=== PATIENT | female | born 1965 | race Caucasian/White ===

== ENCOUNTER 2017-03-19 22:38 | Emergency (ER) | payer OTHER ==
[2017-03-19 22:44] VITALS: RESP 18
[2017-03-19] MEDS ORDERED: HYDROcodone/APAP 5-325MG 1 EACH TAB PO STA (23:08)
--- NOTE | 2017-03-19 23:28 | ED ---
Fall HPI - General Chief Complaint: Fall Stated Complaint: Arm Pain Time Seen by Provider: 03/19/17 22:58 Source: patient, RN notes reviewed Mode of arrival: ambulatory - History of Present Illness Initial Comments: Patient is a 51-year-old female presents to the emergency room for evaluation of fall injury. Patient states she was walking over a bunch of rocks while in her flip-flops and tripped and fell. Patient states she has an abrasion over her right foot. Patient states she woke up today she's having pain in her left wrist, left hand, third digit of left hand, left shoulder, right shoulder and the right side of her ribs. Patient states the pain is worse when she takes a deep breath. Patient does state she has a history of COPD. Patient denies increasing shortness of breath. Patient states she took Tylenol 3 earlier today with no relief of symptoms. Patient denies head trauma during incident. Patient denies headache, neck pain, nausea or vomiting. Patient denies paresthesias. Patient denies low back pain. Patient denies any other injuries during incident. - Related Data Home Medications Medication Instructions Recorded Confirmed DULoxetine HCL [Cymbalta] 30 mg PO DAILY 03/19/17 03/19/17 DULoxetine HCL [Cymbalta] 60 mg PO DAILY 03/19/17 03/19/17 LORazepam [Ativan] 0.5 mg PO BID PRN 03/19/17 03/19/17 Mobic Unknown Dose 1 tab PO DAILY 03/19/17 03/19/17 Naproxen [Naprosyn] 500 mg PO BID PRN 03/19/17 03/19/17 Pepcid Unknown Strength 1 tab PO BID 03/19/17 03/19/17 QUEtiapine FUMARATE [SEROquel] 100 mg PO HS 03/19/17 03/19/17 Requip Unknown Dose 3 tab PO HS 03/19/17 03/19/17 Previous Rx's Medication Instructions Recorded HYDROcodone/APAP 5-325MG [[place] 1 tab PO Q6HR PRN #12 tab 03/20/17 5-325] Allergies Allergy/AdvReac Type Severity Reaction Status Date / Time No Known Allergies Allergy Verified 03/19/17 23:19 Review of Systems ROS Statement: Those systems with pertinent positive or pertinent negative responses have been documented in the HPI. ROS Other: All systems not noted in ROS Statement are negative. Past Medical History Past Medical History: No Reported History History of Any Multi-Drug Resistant Organisms: None Reported Additional Past Surgical History / Comment(s): left knee, bilateral breast lumpectomy, endoscopy. Past Psychological History: Anxiety, Depression Smoking Status: Current every day smoker Past Alcohol Use History: None Reported Past Drug Use History: None Reported General Exam - General Exam Comments Initial Comments: Sitting in exam room, no acute distress. Limitations: no limitations General appearance: alert, in no apparent distress Head exam: Present: atraumatic, normocephalic, normal inspection Eye exam: Present: normal appearance, PERRL, EOMI Pupils: Present: normal accommodation ENT exam: Present: normal exam Neck exam: Present: normal inspection, full ROM. Absent: tenderness, lymphadenopathy Respiratory exam: Present: normal lung sounds bilaterally, chest wall tenderness (Redness on palpating over her anterior lateral ribs on the right side). Absent: respiratory distress Cardiovascular Exam: Present: regular rate, normal rhythm, normal heart sounds Left Shoulder Exam: Present: normal inspection, full ROM, tenderness (Anterior shoulder joint). Absent: tenderness over AC joint Forearm Wrist exam: Present: full ROM, tenderness (Tenderness on palpating over distal ulnar area) Hand Wrist exam: Present: normal inspection, full ROM, tenderness (Palpating over the base of the fifth and fourth metacarpal areas. Pain on palpating over the distal phalanx of third digit.) Vascular: Present: normal capillary refill (Capillary refill less than 2 seconds ), radial pulse (2+), ulnar pulse (2+) Right Shoulder Exam: Present: normal inspection, full ROM, tenderness ([place] on palpating over her anterior shoulder joint). Absent: tenderness over AC joint Upper Arm exam: Present: normal inspection, full ROM. Absent: tenderness Vascular: Present: normal capillary refill (Capillary refill less than 2 seconds ), radial pulse (2+), ulnar pulse (2+) Back exam: Present: normal inspection Neurological exam: Present: alert, oriented X3, CN II-XII intact, normal gait Psychiatric exam: Present: normal affect, normal mood Skin exam: Present: warm, dry, intact, normal color. Absent: rash Course Vital Signs 03/19/17 03/20/17 22:40 00:29 Temperature 98.1 F 98.0 F Pulse Rate 102 H 69 Respiratory 18 18 Rate Blood Pressure 136/72 159/88 O2 Sat by Pulse 96 98 Oximetry Procedures - Orthopedic Splinting/Casting Injury #1 Side: left Upper Extremity Injury Location: hand, finger (Third digit) Upper Extremity Immobilizer: ulnar gutter (Short arm OCL ulnar gutter splint placed. 2 x 10". Neurovascular function assessed and intact.), aluminum form splint (Third digit) Medical Decision Making - Medical Decision Making Patient is a 51-year-old female presents to the emergency room for evaluation of fall injury. Patient does have a tuft comminuted fracture of the distal phalanx of the third left digit. Patient also has a nondisplaced fracture of the base of the fifth metacarpal of the left hand. Patient also has a right fifth rib fracture. A pulmonary nodule was noted in the right upper lobe of the chest x-ray. This was mentioned to patient. Advised patient to follow-up with primary care provider for further evaluation of the nodule. All other x- ray's showed no acute findings. Patient placed in an ulnar gutter splint for fifth metacarpal fracture and placed in an aluminum finger splint for the third distal phalanx fracture. Patient was sent home with pain medications and advised to follow-up with cardiac nurse specialist and primary care provider. Patient states she understands everything that was discussed with her. Return parameters discussed. Case discussed with Dr. Alvarado. - Radiology Data Radiology results: report reviewed, image reviewed Disposition Clinical Impression: Right rib fracture, Fracture of fifth metacarpal bone, Phalanx, distal fracture of finger, Fall, Abrasion of right foot, Pulmonary nodule Disposition: HOME SELF-CARE Condition: Good Instructions: Finger Fracture (ED), Hand Fracture (ED), Abrasion (ED), Pulmonary Nodules (ED) Additional Instructions: Ice left hand on and off for 10-15 minutes for the next 24-48 hours. Do not get splint wet. Do not remove splint until follow-up with cardiac nurse specialist. Please follow-up with cardiac nurse specialist, Dr. Baugh, in 24- 48 hours. Take ibuprofen as needed for pain. Take [place] as needed for severe pain. Please follow up with primary care provider for reevaluation of rib fracture and pulmonary nodule. If new symptoms develop or symptoms worsen, please return to the ER. Prescriptions: HYDROcodone/APAP 5-325MG [[place] 5-325] 1 tab PO Q6HR PRN #12 tab PRN Reason: Pain Referrals: Sampson Nova MD [Primary Care Provider] - 1-2 days Lee Baugh DO [Doctor of Osteopathic Medicine] - 1-2 days Time of Disposition: 00:27
--- NOTE | 2017-03-19 23:35 | XR ---
EXAM: XR Left Shoulder Complete, 2 or More Views CLINICAL HISTORY: Reason: Pain TECHNIQUE: Two or more views of the left shoulder. COMPARISON: No relevant prior studies available. FINDINGS: Bones/joints: No evidence of fracture or dislocation. No significant arthritic changes identified. Soft tissues: Unremarkable. Lungs: Multiple calcified pulmonary granulomas. IMPRESSION: No significant bone or joint abnormalities.
--- NOTE | 2017-03-19 23:39 | XR ---
EXAM: XR Right Shoulder Complete, 2 or More Views CLINICAL HISTORY: Reason: Pain TECHNIQUE: Two or more views of the right shoulder. COMPARISON: No relevant prior studies available. FINDINGS: Bones/joints: No evidence of fracture or dislocation. No significant arthritic changes. Soft tissues: Unremarkable. Lungs: Small nodular and linear density measuring approximately 6 mm along peripheral aspect of right upper lobe. IMPRESSION: No significant bone or joint abnormalities. Small nodular and linear density along the peripheral right upper lobe which may reflect pulmonary fibrotic scarring, but cannot exclude pulmonary nodule. Follow-up PA and lateral chest radiographs would be useful for further evaluation.
--- NOTE | 2017-03-19 23:51 | XR ---
EXAM: XR Right Ribs and AP Chest, 3 or More Views CLINICAL HISTORY: Reason: Pain TECHNIQUE: Frontal and oblique views of the right ribs and frontal view of the chest. COMPARISON: No relevant prior studies available. FINDINGS: Lungs: Heart size and mediastinal structures are within normal limits. Scattered calcified pulmonary granulomas bilaterally. There are scattered linear opacities in the right upper lobe and right lung apex suggesting fibrotic scarring. Small nodular and linear density along the peripheral right upper lobe may also reflect pulmonary fibrotic scarring, but cannot exclude pulmonary nodule. No focal pulmonary infiltrates or consolidations. Pleural space: No evidence of pneumothorax or pleural effusion. Heart: Unremarkable. No cardiomegaly. Mediastinum: Unremarkable. Bones/joints: Several old right rib fractures. There is acute appearing minimally displaced fracture involving the lateral right fifth rib. No other definite acute rib fractures identified. IMPRESSION: Remote granulomatous process and scattered right upper lobe pulmonary fibrotic scarring. Small subcentimeter right upper lobe pulmonary nodule which is of indeterminate etiology. If no prior chest radiographs are available for comparison, then follow-up CT chest would be recommended. Minimally displaced acute appearing lateral right fifth rib fracture. No evidence of pulmonary convocation.
--- NOTE | 2017-03-19 23:57 | XR ---
EXAM: XR Left Wrist Complete, 3 or More Views CLINICAL HISTORY: Reason: Pain TECHNIQUE: Frontal, lateral and oblique views of the left wrist. COMPARISON: No relevant prior studies available. FINDINGS: Bones/joints: No evidence of fracture, dislocation or bony erosion. No significant arthritic changes identified. Soft tissues: Mild soft tissue swelling about the wrist. No radiopaque foreign body. IMPRESSION: Mild soft tissue swelling about the wrist. No evidence of acute fracture or dislocation.
--- NOTE | 2017-03-20 00:02 | XR ---
EXAM: XR Left Hand Complete, 3 or More Views CLINICAL HISTORY: Reason: Pain TECHNIQUE: Frontal, lateral and oblique views of the left hand. COMPARISON: No relevant prior studies available. FINDINGS: Bones/joints: Comminuted mildly displaced fracture involves terminal tuft of third distal phalanx. Nondisplaced fracture traverses base of fifth metacarpal. No other fracture or dislocation identified. Soft tissues: Soft tissue swelling about the distal third finger. No radiopaque foreign body. IMPRESSION: Mildly displaced, comminuted fracture terminal tuft of third distal filling speared Nondisplaced fracture base of fifth metacarpal.
[2017-03-20 00:30] VITALS: BP 159/88; PULSE 69; TEMP 98
== END 2017-03-20 00:37 | disposition home or self-care (01) ==
LOC: EC 22:38
DX: S22.31XA Fracture of one rib, right side, initial encounter for closed fracture (principal); S62.347A Nondisplaced fracture of base of fifth metacarpal bone, left hand, initial encounter for closed fracture; S62.633A Displaced fracture of distal phalanx of left middle finger, initial encounter for closed fracture; S90.811A Abrasion, right foot, initial encounter; M25.511 Pain in right shoulder; M25.512 Pain in left shoulder; R91.1 Solitary pulmonary nodule; F32.9 Major depressive disorder, single episode, unspecified; F41.9 Anxiety disorder, unspecified; F17.200 Nicotine dependence, unspecified, uncomplicated; Z79.899 Other long term (current) drug therapy; W01.0XXA Fall on same level from slipping, tripping and stumbling without subsequent striking against object, initial encounter
CPT/HCPCS: 29125; 99284

== ENCOUNTER → 2017-05-14 | Outpatient (CLI) | payer MEDICARE, OTHER ==
--- NOTE | 2017-05-14 16:06 | CT ---
EXAMINATION TYPE: CT chest w con DATE OF EXAM: 05/14/2017 COMPARISON: Chest x-ray May 06, 2017. HISTORY: Follow up for lung nodule. Abnormal chest x-ray CT DLP: 134.0 mGycm. Automated Exposure Control for Dose Reduction was Utilized. TECHNIQUE: CT scan of the thorax is performed following with IV Contrast, patient injected with 80 m L of Omnipaque 300. FINDINGS: LUNGS: There is background of moderate to severe emphysematous change. There are scattered calcified nodules confirmed as suspected on x-ray seen bilaterally most pronounced in the lower lungs but calci fied 5 mm nodule is seen in the left upper lobe. There is 5 x 5 mm noncalcified nodule right lung bas e on axial image 50 just above diaphragm. No suspicious noncalcified greater than 6 mm parenchymal no dule or mass is otherwise present bilaterally. No pleural effusion or pneumothorax is seen bilaterall y. Moderate apical scarring bilaterally is seen. Tracheobronchial tree is patent. MEDIASTINUM: There are no greater than 1 cm hilar or mediastinal lymph nodes. No cardiomegaly or pe ricardial effusion is seen. Coronary artery calcification is present which is noted marker for coron aryan artery disease. OTHER: S-shaped scoliosis in the thoracolumbar spine is present. Heterogeneously dense fibroglandular tissue is noted in both breasts. IMPRESSION: Scattered small calcified nodules are present bilaterally presumed benign and product of old granulomatous disease. A single 5 mm noncalcified nodule right lung base is noted on background o f moderate to severe emphysematous change. Appropriate CT imaging follow-up is advised as per modifie d Fleischner Society recommendations. (Consider optional CT in 1 year)
== END | disposition home or self-care (01) ==
LOC: RADCTMAIN 14:00
PROVIDERS: ATTEND Internal Medicine Critical Care Medicine
DX: R91.8 Other nonspecific abnormal finding of lung field (principal); J43.9 Emphysema, unspecified
CPT/HCPCS: 71260; Q9967

== ENCOUNTER 2018-04-11 00:36 | Inpatient (IN) | payer OTHER, MEDICARE ==
[2018-04-11 00:54] LABS: Basophils # (A) 0.1 k/uL (0-0.2); Basophils % (A) 0 %; Eosinophils # (A) 0.2 k/uL (0-0.7); Eosinophils % (A) 1 %; HCT 37.2 % (34.0-46.0); HGB 12.5 gm/dL (11.4-16.0); Lymphocytes # (A) 3.4 k/uL (1.0-4.8); Lymphocytes % (A) 18 %; MCH 29.8 pg (25.0-35.0); MCHC 33.6 g/dL (31.0-37.0); MCV 88.9 fL (80.0-100.0); Mean Platelet Volume 6.6; Monocytes # (A) 0.4 k/uL (0-1.0); Monocytes % (A) 2 %; Neutrophils # (A) 14.7 k/uL (1.3-7.7); Neutrophils % (A) 78 %; Platelet Count 335 k/uL (150-450); RBC 4.18 m/uL (3.80-5.40); RDW 13.7 % (11.5-15.5); WBC 18.9 k/uL (3.8-10.6)
[2018-04-11 00:56] LABS: Glucose,Whole Blood 87 mg/dL (75-99)
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
[2018-04-11 01:04] LABS: Partial Thromboplastin Time 22.7 sec (22.0-30.0); Prothrombin Time 9.9 sec (9.0-12.0)
[2018-04-11 01:05] LABS: ALT 28 U/L (9-52); AST 29 U/L (14-36); Alcohol <10 mg/dL; Alkaline Phosphatase 50 U/L (38-126); Amylase 77 U/L (30-110); Anion Gap 12 mmol/L; Blood Urea Nitrogen 13 mg/dL (7-17); Carbon Dioxide 21 mmol/L (22-30); Chloride 103 mmol/L (98-107); Glucose 99 mg/dL (74-99); Lipase 117 U/L (23-300); Potassium 3.3 mmol/L (3.5-5.1); Sodium 136 mmol/L (137-145); Total Bilirubin 0.3 mg/dL (0.2-1.3); Total Protein 6.4 g/dL (6.3-8.2)
[2018-04-11 01:15] LABS: Creatine Kinase 89 U/L (30-135)
[2018-04-11] MEDS ORDERED: MORPHINE SULFATE 2 MG/ML SYRINGE IVP STA ×3 (01:19→05:11)
[2018-04-11 01:28] LABS: Creatine Kinase MB 0.5 ng/mL (0.0-2.4); Troponin I <0.012 ng/mL (0.000-0.034)
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
--- NOTE | 2018-04-11 02:56 | CT ---
EXAMINATION TYPE: CT brain georgie moreno DATE OF EXAM: 04/11/2018 COMPARISON: HISTORY: Trauma CT DLP: 1540 mGycm Automated exposure control for dose reduction was used. TECHNIQUE: CT scan of the head and cervical spine are performed without contrast. FINDINGS: Ventricles and sulci appear normal. There is no mass effect nor midline shift. There is n o sign of intracranial hemorrhage. There is symmetric thalamic calcification. There is evidence of ol d 1 cm lacunar infarct right anterior internal capsule. The calvarium is intact. There is a 1.5 cm ar ea of hypodensity also in the anterior left internal capsule. The cervical vertebra have fairly normal spacing and alignment. Posterior elements are intact. Facet joints are intact. There is narrowing at C5-6 disc space and mild spur formation. Skull base is intac t. IMPRESSION: Mild spondylosis at C5-6. No fracture. Chronic small vessel ischemia in the brain. No acute definite intracranial abnormality. No hemorrhage .
[2018-04-11 03:03] LABS: Appearance,Urine Clear (Clear); Bilirubin,Urine Negative (Negative); Blood,Urine Negative (Negative); Color,Urine Light Yellow; Glucose,Urine (UA) Negative (Negative); Ketones,Urine Negative (Negative); Leukocyte Esterase,Urine Negative (Negative); Nitrite,Urine Negative (Negative); PH, Urine 6.5 (5.0-8.0); Protein,Urine Negative (Negative); Specific Gravity,Urine 1.022 (1.001-1.035); Urobilinogen,Urine <2.0 mg/dL (<2.0)
[2018-04-11 03:13] LABS: Amphetamine Screen,Urine Not Detected (NotDetected); Barbiturate Screen,Urine Not Detected (NotDetected); Benzodiazepines Screen,Urine Not Detected (NotDetected); Cocaine Screen,Urine Not Detected (NotDetected); Methadone Screen, Urine Not Detected (NotDetected); Opiate Screen,Urine Detected (NotDetected); Oxycodone Screen, Urine Not Detected (NotDetected); Phencyclidine Screen,Urine Not Detected (NotDetected); Tricyclic Antidepressant,Urine Not Detected (NotDetected); Urn Cannabinoid Scrn Not Detected (NotDetected)
--- NOTE | 2018-04-11 03:14 | CT ---
EXAMINATION TYPE: CT ChestAbdPelvis wo con DATE OF EXAM: 04/11/2018 COMPARISON: None HISTORY: Trauma CT DLP: 1401 mGycm. Automated Exposure Control for Dose Reduction was Utilized. TECHNIQUE: CT scan of the thorax, abdomen and pelvis is performed with IV contrast. FINDINGS: There is pulmonary emphysema. There is coarse reticular interstitial density throughout the lungs and more at the lung bases consistent with fibrosis. There is no pericardial effusion. Thoraci c aorta is intact. There is no evidence of aneurysm or dissection. Abdominal aorta is intact. There i s no pneumothorax. There is no mediastinal adenopathy. There is no pulmonary mass. Liver spleen pancreas gallbladder appear normal. Bile ducts are not dilated. There is no adrenal mass . Kidneys show satisfactory contrast opacification. There is no hydronephrosis. There is no retroperi toneal adenopathy. There is no ascites. Bladder distends smoothly. I see no pelvic mass. There is no intestinal wall thickening. There are no dilated loops. There is no sign of pneumoperitoneum. There is anterior wedging with 25% loss of height of T12. This could be an acute fracture. The other thoracic and lumbar vertebra appear intact. There is bilateral L5 spondylolysis. Is no spondylolisthe sis. IMPRESSION: Emphysema. Extensive pulmonary interstitial fibrosis. Mild atherosclerotic vascular disease. Compression fracture of T12 is probably an acute fracture. L5 spondylolysis.
[2018-04-11] MEDS ORDERED: SODIUM CHLORIDE 0.9% 1,000 ML IV ONE (04:26)
[2018-04-11] MEDS: MORPHINE SULFATE 2 MG/ML SYRINGE IVP PRN ×4 (08:45→21:52)
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
[2018-04-11] MEDS: BACLOFEN 10 MG TAB PO PRN ×2 (12:28→23:52)
[2018-04-11] MEDS ORDERED: tiZANidine 4 MG TAB PO PRN (12:47)
[2018-04-11] MEDS ORDERED: ACETAMINOPHEN TAB 325 MG TAB PO PRN (12:47)
[2018-04-11] MEDS ORDERED: POTASSIUM CHLORIDE ER 20 MEQ TAB.ER PO STA (12:56)
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
[2018-04-11] MEDS: KETOROLAC 30 MG/ML 1 ML VIAL IVP SCH ×2 (16:47→23:52)
[2018-04-11] MEDS: NICOTINE 21MG/24HR PATCH TRANSDERM SCH (16:47)
[2018-04-11] MEDS: FAMOTIDINE 20 MG TAB PO SCH (16:48)
[2018-04-11] MEDS: SODIUM CHLORIDE 0.9% 1,000 ML IV SCH ×2 (16:49→23:54)
[2018-04-11] MEDS: SYMBICORT 160-4.5 MCG INHALER INHALATION SCH (21:08)
[2018-04-11] MEDS: MONTELUKAST 10 MG TAB PO SCH (21:18)
[2018-04-11] MEDS: ALPRAZolam 0.25 MG TAB PO SCH (21:18)
[2018-04-11] MEDS: HEPARIN SODIUM,PORCINE 5,000 UNIT/ML 1 ML VIAL SQ SCH (21:19)
[2018-04-11] MEDS: oxyCODONE-APAP 7.5-325MG 1 EACH TAB PO PRN (23:03)
[2018-04-12] MEDS: MORPHINE SULFATE 2 MG/ML SYRINGE IVP PRN ×5 (04:10→21:12)
[2018-04-12] MEDS: KETOROLAC 30 MG/ML 1 ML VIAL IVP SCH ×4 (05:41→23:52)
[2018-04-12] MEDS: SYMBICORT 160-4.5 MCG INHALER INHALATION SCH ×2 (07:12→19:43)
[2018-04-12] MEDS: HEPARIN SODIUM,PORCINE 5,000 UNIT/ML 1 ML VIAL SQ SCH ×2 (07:51→21:41)
[2018-04-12] MEDS: DULoxetine HCL 30 MG CAPSULE.DR PO SCH (07:51)
[2018-04-12] MEDS: NICOTINE 21MG/24HR PATCH TRANSDERM SCH (07:51)
[2018-04-12] MEDS: FAMOTIDINE 20 MG TAB PO SCH (07:51)
[2018-04-12 08:08] LABS: Basophils # (A) 0.1 k/uL (0-0.2); Basophils % (A) 1 %; Eosinophils # (A) 0.1 k/uL (0-0.7); Eosinophils % (A) 1 %; HCT 38.2 % (34.0-46.0); HGB 12.7 gm/dL (11.4-16.0); Lymphocytes # (A) 1.5 k/uL (1.0-4.8); Lymphocytes % (A) 15 %; MCH 29.8 pg (25.0-35.0); MCHC 33.3 g/dL (31.0-37.0); MCV 89.5 fL (80.0-100.0); Mean Platelet Volume 6.8; Monocytes # (A) 0.3 k/uL (0-1.0); Monocytes % (A) 3 %; Neutrophils # (A) 7.6 k/uL (1.3-7.7); Neutrophils % (A) 79 %; Platelet Count 264 k/uL (150-450); RBC 4.27 m/uL (3.80-5.40); RDW 13.6 % (11.5-15.5); WBC 9.6 k/uL (3.8-10.6)
[2018-04-12 08:25] LABS: Anion Gap 10 mmol/L; Blood Urea Nitrogen 7 mg/dL (7-17); Calcium 8.7 mg/dL (8.4-10.2); Carbon Dioxide 21 mmol/L (22-30); Chloride 107 mmol/L (98-107); Glucose 93 mg/dL (74-99); Potassium 3.4 mmol/L (3.5-5.1); Sodium 138 mmol/L (137-145)
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
[2018-04-12] MEDS ORDERED: DULoxetine HCL 60 MG CAPSULE.DR PO SCH (09:00)
[2018-04-12] MEDS ORDERED: MELOXICAM 7.5 MG TAB PO SCH (09:00)
[2018-04-12] MEDS: oxyCODONE-APAP 7.5-325MG 1 EACH TAB PO PRN ×2 (10:19→22:13)
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
[2018-04-12] MEDS ORDERED: FUROSEMIDE 10 MG/ML 2 ML VIAL IV ONE (11:59)
[2018-04-12] MEDS: BACLOFEN 10 MG TAB PO PRN ×2 (12:30→19:03)
[2018-04-12] MEDS: POTASSIUM CHLORIDE ER 20 MEQ TAB.ER PO SCH (12:30)
[2018-04-12] MEDS ORDERED: FUROSEMIDE 10 MG/ML 2 ML VIAL IV STA (14:56)
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
--- NOTE | 2018-04-12 18:07 | XR ---
EXAMINATION TYPE: XR chest 2V DATE OF EXAM: 04/12/2018 COMPARISON: 05/06/2017 HISTORY: Short of breath TECHNIQUE: Frontal and lateral views of the chest are obtained. FINDINGS: There is bilateral diffuse interstitial pulmonary infiltrate. This is increased compared t o last exam. There is pulmonary emphysema. There is no pleural effusion or pneumothorax. Heart size i s normal. The bony thorax is intact. There are calcified granulomata in both lungs. IMPRESSION: Interstitial pulmonary fibrosis has progressed compared to last exam. Bullous emphysema. No heart failure seen. Acute interstitial pneumonia is possible.
[2018-04-12] MEDS: IPRATROPIUM-ALBUTEROL 3 ML NEB INHALATION SCH (19:43)
[2018-04-12] MEDS: ONDANSETRON 4 MG/2 ML VIAL IVP PRN (21:07)
[2018-04-12] MEDS: ALPRAZolam 0.25 MG TAB PO SCH (21:16)
[2018-04-12] MEDS: MONTELUKAST 10 MG TAB PO SCH (21:41)
[2018-04-13] MEDS: ONDANSETRON 4 MG/2 ML VIAL IVP PRN ×2 (04:41→10:12)
[2018-04-13] MEDS: MORPHINE SULFATE 2 MG/ML SYRINGE IVP PRN ×4 (04:45→19:36)
[2018-04-13] MEDS: BACLOFEN 10 MG TAB PO PRN ×2 (05:59→22:04)
[2018-04-13] MEDS: KETOROLAC 30 MG/ML 1 ML VIAL IVP SCH ×4 (06:01→18:09)
[2018-04-13] MEDS: NICOTINE 21MG/24HR PATCH TRANSDERM SCH (07:22)
[2018-04-13] MEDS: HEPARIN SODIUM,PORCINE 5,000 UNIT/ML 1 ML VIAL SQ SCH ×2 (07:22→20:21)
[2018-04-13] MEDS: POTASSIUM CHLORIDE ER 20 MEQ TAB.ER PO SCH (07:22)
[2018-04-13] MEDS: DULoxetine HCL 30 MG CAPSULE.DR PO SCH (07:23)
[2018-04-13] MEDS: FAMOTIDINE 20 MG TAB PO SCH (07:23)
[2018-04-13] MEDS: SYMBICORT 160-4.5 MCG INHALER INHALATION SCH ×2 (07:30→19:29)
[2018-04-13] MEDS: IPRATROPIUM-ALBUTEROL 3 ML NEB INHALATION SCH ×3 (07:30→19:10)
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
[2018-04-13] MEDS: oxyCODONE-APAP 7.5-325MG 1 EACH TAB PO PRN (11:52)
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
[2018-04-13 19:16] VITALS: RESP 18
[2018-04-13] MEDS: MONTELUKAST 10 MG TAB PO SCH (20:22)
[2018-04-13] MEDS: ALPRAZolam 0.25 MG TAB PO SCH (20:22)
[2018-04-13] MEDS ORDERED: MORPHINE SULFATE 2 MG/ML SYRINGE ONE (23:30)
[2018-04-14] MEDS ORDERED: KETOROLAC 30 MG/ML 1 ML VIAL ONE (00:17)
[2018-04-14] MEDS ORDERED: oxyCODONE-APAP 7.5-325MG 1 EACH TAB ONE (00:17)
[2018-04-14] MEDS: KETOROLAC 30 MG/ML 1 ML VIAL IVP SCH ×3 (04:55→11:58)
[2018-04-14] MEDS: IPRATROPIUM-ALBUTEROL 3 ML NEB INHALATION SCH ×2 (07:55→13:18)
[2018-04-14] MEDS: SYMBICORT 160-4.5 MCG INHALER INHALATION SCH (07:55)
[2018-04-14] MEDS: oxyCODONE-APAP 7.5-325MG 1 EACH TAB PO PRN (08:23)
[2018-04-14] MEDS: HEPARIN SODIUM,PORCINE 5,000 UNIT/ML 1 ML VIAL SQ SCH (08:24)
[2018-04-14] MEDS: DULoxetine HCL 30 MG CAPSULE.DR PO SCH (08:24)
[2018-04-14] MEDS: FAMOTIDINE 20 MG TAB PO SCH (08:24)
[2018-04-14] MEDS: POTASSIUM CHLORIDE ER 20 MEQ TAB.ER PO SCH (08:25)
[2018-04-14] MEDS: NICOTINE 21MG/24HR PATCH TRANSDERM SCH (08:25)
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
[2018-04-14 09:33] VITALS: BP 143/87; PULSE 85; TEMP 97.6
[2018-04-14] MEDS ORDERED: oxyCODONE-APAP 7.5-325MG 1 EACH TAB PO PRN (09:43)
[2018-04-14] MEDS ORDERED: GABAPENTIN 100 MG CAP PO SCH (12:45)
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
== END 2018-04-14 15:37 | disposition home health service (06) | DRG 552 ==
LOC: EC 00:36 → SUPCPDRO 00:36 → 5ONC 04:26 → OBSVTOIN 11:16 → 5MS5E 04-12 17:31 → 3SUR 04-13 11:36
PROVIDERS: ADMIT Internal Medicine; ATTEND Internal Medicine
DX: S22.089A Unspecified fracture of T11-T12 vertebra, initial encounter for closed fracture (principal); J96.11 Chronic respiratory failure with hypoxia; R40.2412 Glasgow coma scale score 13-15, at arrival to emergency department; S92.322A Displaced fracture of second metatarsal bone, left foot, initial encounter for closed fracture; S92.332A Displaced fracture of third metatarsal bone, left foot, initial encounter for closed fracture; J84.10 Pulmonary fibrosis, unspecified; D72.829 Elevated white blood cell count, unspecified; M43.16 Spondylolisthesis, lumbar region; E87.6 Hypokalemia; F17.210 Nicotine dependence, cigarettes, uncomplicated; F32.9 Major depressive disorder, single episode, unspecified; F41.9 Anxiety disorder, unspecified; G25.81 Restless legs syndrome; J43.9 Emphysema, unspecified; Z79.1 Long term (current) use of non-steroidal anti-inflammatories (NSAID); Z79.51 Long term (current) use of inhaled steroids; Z79.899 Other long term (current) drug therapy; V49.3XXA Car occupant (driver) (passenger) injured in unspecified nontraffic accident, initial encounter; Y08.89XA Assault by other specified means, initial encounter; Y92.410 Unspecified street and highway as the place of occurrence of the external cause
CPT/HCPCS: 36415; 70450; 71046; 71250; 72125; 74176; 80048; 80053; 80306; 80320; 81003; 82150; 82550; 82553; 83605; 83690; 84484; 85025; 85610; 85730; 86850; 86900; 86901; 93005; 94640; 94760; 96361; 96374; 96376; 99285

== ENCOUNTER → 2018-05-20 | Outpatient (CLI) | payer MEDICARE, OTHER ==
[2018-05-20 16:17] LABS: HCT 41.1 % (34.0-46.0); HGB 13.8 gm/dL (11.4-16.0); MCHC 33.5 g/dL (31.0-37.0); MCV 86.6 fL (80.0-100.0); Mean Platelet Volume 6.5; Platelet Count 332 k/uL (150-450); RBC 4.74 m/uL (3.80-5.40); RDW 13.3 % (11.5-15.5); WBC 8.7 k/uL (3.8-10.6)
[2018-05-20 16:37] LABS: ALT 25 U/L (9-52); AST 23 U/L (14-36); Albumin 4.3 g/dL (3.5-5.0); Alkaline Phosphatase 67 U/L (38-126); Anion Gap 6 mmol/L; Blood Urea Nitrogen 15 mg/dL (7-17); Calcium 10.2 mg/dL (8.4-10.2); Carbon Dioxide 26 mmol/L (22-30); Chloride 107 mmol/L (98-107); Glucose 95 mg/dL (74-99); Phosphorus 4.9 mg/dL (2.5-4.5); Potassium 4.7 mmol/L (3.5-5.1); Sodium 139 mmol/L (137-145); Total Bilirubin 0.3 mg/dL (0.2-1.3); Total Protein 7.2 g/dL (6.3-8.2)
[2018-05-20 16:51] LABS: Appearance,Urine Cloudy (Clear); Bacteria,Urine Rare /hpf; Bilirubin,Urine Negative (Negative); Blood,Urine Negative (Negative); Color,Urine Yellow; Glucose,Urine (UA) Negative (Negative); Ketones,Urine Negative (Negative); Leukocyte Esterase,Urine Negative (Negative); Mucus,Urine Rare /hpf; Nitrite,Urine Negative (Negative); PH, Urine 6.5 (5.0-8.0); Protein,Urine Negative (Negative); RBC,Urine <1 /hpf (0-5); Squamous Epithelial Cell,Urine 2 /hpf (0-4); Urobilinogen,Urine <2.0 mg/dL (<2.0); WBC,Urine 2 /hpf (0-5)
[2018-05-21 00:35] LABS: Vitamin D 25 Hydroxy 20.8 ng/mL (30.0-100.0)
[2018-05-21 00:48] LABS: Parathyroid Hormone Intact 42.1 pg/mL (14.0-72.0)
== END | disposition home or self-care (01) ==
LOC: LABWHC1 15:46
PROVIDERS: ATTEND Orthopaedic Surgery
DX: S92.335D Nondisplaced fracture of third metatarsal bone, left foot, subsequent encounter for fracture with routine healing (principal); S92.325D Nondisplaced fracture of second metatarsal bone, left foot, subsequent encounter for fracture with routine healing; M79.672 Pain in left foot; S22.081D Stable burst fracture of T11-T12 vertebra, subsequent encounter for fracture with routine healing
CPT/HCPCS: 36415; 80053; 81001; 82306; 82310; 82652; 83970; 84100; 85027

== ENCOUNTER 2018-09-08 09:43 | Day surgery (SDC) | payer MEDICARE, OTHER ==
[2018-09-02 14:42] VITALS: BMI 20.2
[~2018-09-08 09:43] MED LIST: DEXAMETHASONE SOD PHOSPHATE 10 MG/ML 1 ML VIAL IV ONE; HYDROmorphone 0.5 MG/0.5 ML SYRINGE IVP PRN; LACTATED RINGERS 1,000 ML IV SCH; LIDOCAINE 1% 20 ML VIAL (10MG/ML) FOR IV START INTRADERMA PRN; MIDAZOLAM 2 MG/2 ML VIAL IV PRN; ONDANSETRON 4 MG/2 ML VIAL IVP ONE; SCOPOLAMINE 1.5MG/72HR PATCH TRANSDERM ONE; ceFAZolin IN SWFI 2 GM/20 ML SYRINGE IVP ONE
[2018-09-08 10:07] VITALS: TEMP 97.7
[2018-09-08] MEDS ORDERED: LIDOCAINE 0.5%-EPI 1:200,000 50 ML VIAL SQ ONE (11:47)
[2018-09-08] MEDS ORDERED: LIDOCAINE 1% INJ 10MG/ML (20 ML MDV) ONE (11:47)
[2018-09-08] MEDS ORDERED: ROCURONIUM BROMIDE 10 MG/ML 10 ML VIAL IV ONE (11:47)
[2018-09-08] MEDS ORDERED: GLYCOPYRROLATE 0.2 MG/ML 2 ML VIAL ONE (11:47)
[2018-09-08] MEDS ORDERED: fentaNYL (PF) 50 MCG/ML 2 ML AMP ONE (11:47)
[2018-09-08] MEDS ORDERED: IOPAMIDOL M200 10 ML VIAL MISCELLANE ONE (11:47)
[2018-09-08] MEDS ORDERED: SUCCINYLCHOLINE CHLORIDE 100 MG/5 ML SYR IV ONE (11:47)
[2018-09-08] MEDS ORDERED: MIDAZOLAM 2 MG/2 ML VIAL ONE (11:47)
[2018-09-08] MEDS ORDERED: NEOSTIGMINE 1 MG/ML 10 ML VIAL ONE (11:47)
[2018-09-08] MEDS ORDERED: ePHEDrine SULFATE/0.9% NACL/PF 50 MG/5 ML SYRINGE IV ONE (11:47)
[2018-09-08] MEDS ORDERED: PROPOFOL 10 MG/ML 20 ML VIAL IV ONE (11:47)
[2018-09-08] MEDS ORDERED: IBUPROFEN 600 MG TAB PO PRN (13:02)
[2018-09-08] MEDS ORDERED: ONDANSETRON 4 MG/2 ML VIAL IVP PRN (13:02)
[2018-09-08] MEDS ORDERED: HYDROcodone/APAP 5-325MG 1 EACH TAB PO PRN ×2 (13:02)
[2018-09-08] MEDS ORDERED: BENZOCAINE/MENTHOL LOZENG 1 EACH LOZENGE MUCOUS MEM PRN (13:02)
[2018-09-08] MEDS ORDERED: HYDROmorphone 1 MG/ML 1 ML SYRINGE IVP PRN ×2 (13:02)
[2018-09-08] MEDS ORDERED: KETOROLAC 30 MG/ML 1 ML VIAL IVP PRN (13:02)
[2018-09-08] MEDS ORDERED: SODIUM CHLORIDE 0.9% 1,000 ML IV SCH (13:15)
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
[2018-09-08 13:33] VITALS: RESP 18
[2018-09-08 13:48] VITALS: BP 138/82; PULSE 83
--- NOTE | 2018-09-08 15:22 | XR ---
Limited lumbar spine HISTORY: Kyphoplasty 2 intraoperative C-arm images document the procedure
--- NOTE | 2018-09-08 15:22 | FL ---
Fluoroscopy HISTORY: Pain and kyphoplasty 86 seconds fluoroscopy time supplied to the referring clinician. 2 intraoperative C-arm images docum ent the procedure. See dictated report from orthopedic surgery.
[2018-09-08] MEDS ORDERED: ceFAZolin IN SWFI 2 GM/20 ML SYRINGE IVP SCH (16:00)
== END 2018-09-08 14:16 | disposition home or self-care (01) ==
LOC: OR 09:43
PROVIDERS: ATTEND Orthopaedic Surgery Orthopaedic Surgery of the Spine
DX: S22.089A Unspecified fracture of T11-T12 vertebra, initial encounter for closed fracture (principal); V03.90XA Pedestrian on foot injured in collision with car, pick-up truck or van, unspecified whether traffic or nontraffic accident, initial encounter; N39.498 Other specified urinary incontinence; F32.9 Major depressive disorder, single episode, unspecified; J98.4 Other disorders of lung; Z82.49 Family history of ischemic heart disease and other diseases of the circulatory system; Z79.891 Long term (current) use of opiate analgesic; Z79.899 Other long term (current) drug therapy; F17.210 Nicotine dependence, cigarettes, uncomplicated; Z79.1 Long term (current) use of non-steroidal anti-inflammatories (NSAID); Z79.51 Long term (current) use of inhaled steroids
CPT/HCPCS: 88307; 88311; 72020; 22513; J2250; J2710; J2405; J2001; J3010; J0330; J2704; J0690; Q9966; 86850; 86900; 86901

== ENCOUNTER 2018-09-26 20:18 | Inpatient (IN) | payer MEDICARE, OTHER ==
[2018-09-26] MEDS ORDERED: ACETAMINOPHEN TAB 500 MG TAB PO STA (21:07)
[2018-09-26] MEDS ORDERED: ONDANSETRON 4 MG/2 ML VIAL IVP STA (21:11)
--- NOTE | 2018-09-26 21:14 | ED ---
Nausea/Vomiting/Diarrhea HPI - General Chief complaint: Nausea/Vomiting/Diarrhea Stated complaint: Vomiting Time Seen by Provider: 09/26/18 20:45 Source: patient Mode of arrival: ambulatory Limitations: no limitations - History of Present Illness Initial comments: Patient is a 52-year-old female presenting for nausea and vomiting and diarrhea. Patient states that since Thursday, she has had over 20 episodes of vomiting. She also admits to some coughing and shortness of breath and states that she has COPD she does not use any oxygen at home. She admits to subjective fevers and chills but no chest pain and also states that she had greater than 5 episodes of diarrhea that started yesterday. She denies any significant abdominal pain as well as as well as urinary symptoms. - Related Data Home Medications Medication Instructions Recorded Confirmed DULoxetine HCL [Cymbalta] 30 mg PO QAM 03/19/17 09/08/18 DULoxetine HCL [Cymbalta] 60 mg PO QAM 03/19/17 09/08/18 Acetaminophen Tab [Tylenol] 650 mg PO Q4H PRN 04/11/18 09/08/18 Albuterol Inhaler [Ventolin Hfa 1 - 2 puff INHALATION RT-Q6H PRN 04/11/18 Inhaler] Budesonide/Formoterol Fumarate 2 puff INHALATION RT-BID 04/11/18 09/08/18 [Symbicort 160-4.5 Mcg Inhaler] Montelukast [Singulair] 10 mg PO HS 04/11/18 09/08/18 rOPINIRole HCL [Requip] 0.75 mg PO HS 04/11/18 09/08/18 Meloxicam [Mobic] 15 mg PO DAILY 09/02/18 09/08/18 oxyCODONE-APAP 7.5-325MG [Percocet 1 each PO BID 09/02/18 09/08/18 7.5-325 mg] tiZANidine [Zanaflex] 4 mg PO BID 09/02/18 09/08/18 Previous Rx's Medication Instructions Recorded Ibuprofen [Motrin Ib] 800 mg PO Q8HR PRN #0 04/13/18 Ipratropium-Albuterol Nebulize 3 ml INHALATION RT-TID #90 04/13/18 [Duoneb 0.5 mg-3 mg/3 ml Soln] ampul.neb Gabapentin [Neurontin] 100 mg PO TID #90 cap 04/14/18 Allergies Allergy/AdvReac Type Severity Reaction Status Date / Time No Known Allergies Allergy Verified 09/26/18 20:24 Review of Systems ROS Statement: Those systems with pertinent positive or pertinent negative responses have been documented in the HPI. Constitutional: Positive for chills, fatigue and fever. HENT: Negative for congestion. Respiratory: Negative for chest tightness, and wheezing. Is a for shortness of breath and cough Cardiovascular: Negative for chest pain and palpitations. Gastrointestinal: Negative for abdominal pain. Negative for abdominal distention , positive for diarrhea, nausea and vomiting. Genitourinary: Negative for dysuria. Musculoskeletal: Negative for back pain, neck pain and neck stiffness. Skin: Negative for color change. Neurological: Negative for dizziness, speech difficulty, weakness and light- headedness. Psychiatric/Behavioral: Negative for agitation and confusion. Negative for anxiety ROS Other: All systems not noted in ROS Statement are negative. Past Medical History Past Medical History: COPD, Fibromyalgia Additional Past Medical History / Comment(s): Degenerative disc disease of the spine, restless leg syndrome, wears back brace, awaiting orthotic for left foot , hx of 2 fx left foot History of Any Multi-Drug Resistant Organisms: None Reported Past Surgical History: Breast Surgery, Orthopedic Surgery Additional Past Surgical History / Comment(s): left knee, bilateral breast lumpectomy, endoscopy. T12 surgery Past Anesthesia/Blood Transfusion Reactions: Postoperative Nausea & Vomiting ( PONV) Past Psychological History: Anxiety Smoking Status: Current every day smoker - Past Family History Mother Family Medical History: No Reported History General Exam - General Exam Comments Initial Comments: Constitutional: Pt is oriented to person, place, and time. Pt appears well- developed and well-nourished. No distress. HENT: Head: Normocephalic and atraumatic. Eyes: EOM are normal. Neck: Normal range of motion. Neck supple. Cardiovascular: Tachycardia present, regular rhythm, S1 normal, S2 normal and normal heart sounds. Exam reveals no gallop and no friction rub. No murmur heard. Pulmonary/Chest: Effort normal and breath sounds normal. No tachypnea and no bradypnea. No respiratory distress. No wheezes or rales noted. Abdominal: Soft. Bowel sounds are normal. Pt exhibits no shifting dullness, no distension, no pulsatile liver, no fluid wave, no abdominal bruit and no ascites. There is no tenderness. There is no rigidity, no rebound, no guarding, no tenderness at McBurney's point and negative Gaffney's sign. Musculoskeletal: Normal range of motion. Neurological: Pt is alert and oriented to person, place, and time. No cranial nerve deficit. Skin: Skin is warm and dry. No rash noted. Pt is not diaphoretic. No erythema. No pallor. Psychiatric: Pt has a normal mood and affect. Pt behavior is normal. Thought content normal. Limitations: no limitations Course Vital Signs 09/26/18 09/26/18 09/26/18 20:19 21:00 22:00 Temperature 103 F H 100.1 F H Pulse Rate 130 H 121 H 98 Respiratory 24 21 22 Rate Blood Pressure 129/68 126/75 127/78 O2 Sat by Pulse 91 L 92 L 94 L Oximetry 09/26/18 09/26/18 22:30 23:00 Temperature 98.6 F Pulse Rate 99 96 Respiratory 22 24 Rate Blood Pressure 123/71 134/78 O2 Sat by Pulse 96 96 Oximetry Medical Decision Making - Medical Decision Making Because the patient was extremely tachycardic and febrile upon arrival, sepsis order set was initiated. Severe sepsis was identified as there is a left lower lobe infiltrate on chest x-ray. Patient confirms that she has not been hospitalized last 90 days and therefore patient was treated with azithromycin and Rocephin. There is also leukocytosis of 17.1 and lactic acid is not elevated. Influenza was also noted to be negative and troponin was not elevated as well. He says patient has a history of COPD and vital signs were concerning, patient will be admitted to hospital.Explained all labs and diagnostic test results and that we will admit patient to hospital. Pt is agreeable to plan and case has been discussed with Dr. Ansari and they agree to accept the pt. - Lab Data Result diagrams: 09/26/18 21:07 09/26/18 21:07 Lab Results 09/26/18 09/26/18 09/26/18 Range/Units 21:07 21:07 21:07 WBC 17.1 H (3.8-10.6) k/uL RBC 4.52 (3.80-5.40) m/uL Hgb 14.0 (11.4-16.0) gm/dL Hct 40.4 (34.0-46.0) % MCV 89.2 (80.0-100.0) fL MCH 30.9 (25.0-35.0) pg MCHC 34.6 (31.0-37.0) g/dL RDW 13.7 (11.5-15.5) % Plt Count 275 (150-450) k/uL Neutrophils % 91 % Lymphocytes % 5 % Monocytes % 3 % Eosinophils % 0 % Basophils % 0 % Neutrophils # 15.6 H (1.3-7.7) k/uL Lymphocytes # 0.8 L (1.0-4.8) k/uL Monocytes # 0.5 (0-1.0) k/uL Eosinophils # 0.0 (0-0.7) k/uL Basophils # 0.0 (0-0.2) k/uL PT (9.0-12.0) sec INR (<1.2) APTT (22.0-30.0) sec Sodium 136 L (137-145) mmol/L Potassium 3.4 L (3.5-5.1) mmol/L Chloride 105 (98-107) mmol/L Carbon Dioxide 18 L (22-30) mmol/L Anion Gap 13 mmol/L BUN 19 H (7-17) mg/dL Creatinine 0.78 (0.52-1.04) mg/dL Est GFR (CKD-EPI)AfAm >90 (>60 ml/min/1.73 sqM) Est GFR (CKD-EPI)NonAf 87 (>60 ml/min/1.73 sqM) Glucose 159 H (74-99) mg/dL Plasma Lactic Acid Huang 1.7 (0.7-2.0) mmol/L Calcium 9.4 (8.4-10.2) mg/dL Magnesium 1.9 (1.6-2.3) mg/dL Total Bilirubin 0.5 (0.2-1.3) mg/dL AST 33 (14-36) U/L ALT 18 (9-52) U/L Alkaline Phosphatase 79 (38-126) U/L Troponin I (0.000-0.034) ng/mL Total Protein 6.9 (6.3-8.2) g/dL Albumin 4.0 (3.5-5.0) g/dL Influenza Type A RNA (Not Detectd) Influenza Type B (PCR) (Not Detectd) 09/26/18 09/26/18 09/26/18 Range/Units 21:07 21:07 21:07 WBC (3.8-10.6) k/uL RBC (3.80-5.40) m/uL Hgb (11.4-16.0) gm/dL Hct (34.0-46.0) % MCV (80.0-100.0) fL MCH (25.0-35.0) pg MCHC (31.0-37.0) g/dL RDW (11.5-15.5) % Plt Count (150-450) k/uL Neutrophils % % Lymphocytes % % Monocytes % % Eosinophils % % Basophils % % Neutrophils # (1.3-7.7) k/uL Lymphocytes # (1.0-4.8) k/uL Monocytes # (0-1.0) k/uL Eosinophils # (0-0.7) k/uL Basophils # (0-0.2) k/uL PT 9.8 (9.0-12.0) sec INR 0.9 (<1.2) APTT 26.7 (22.0-30.0) sec Sodium (137-145) mmol/L Potassium (3.5-5.1) mmol/L Chloride (98-107) mmol/L Carbon Dioxide (22-30) mmol/L Anion Gap mmol/L BUN (7-17) mg/dL Creatinine (0.52-1.04) mg/dL Est GFR (CKD-EPI)AfAm (>60 ml/min/1.73 sqM) Est GFR (CKD-EPI)NonAf (>60 ml/min/1.73 sqM) Glucose (74-99) mg/dL Plasma Lactic Acid Huang (0.7-2.0) mmol/L Calcium (8.4-10.2) mg/dL Magnesium (1.6-2.3) mg/dL Total Bilirubin (0.2-1.3) mg/dL AST (14-36) U/L ALT (9-52) U/L Alkaline Phosphatase (38-126) U/L Troponin I <0.012 (0.000-0.034) ng/mL Total Protein (6.3-8.2) g/dL Albumin (3.5-5.0) g/dL Influenza Type A RNA Not Detected (Not Detectd) Influenza Type B (PCR) Not Detected (Not Detectd) - EKG Data EKG Comments: EKG shows sinus tachycardia with a rate of 1 25 bpm, W[place] interval 112, QRS 74, QTC 453. There is [address] depression in V3 with no other significant ST depressions or elevations noted Disposition Clinical Impression: Severe sepsis, Community acquired pneumonia Disposition: ADMITTED IP TO THIS [facility] Condition: Fair Is patient prescribed a controlled substance at d/c from ED?: No Referrals: Sampson Nova MD [Primary Care Provider] - 1-2 days Decision to Admit Reason: Admit from EC Decision Date: 09/26/18 Decision Time: 23:56
[2018-09-26] MEDS: SODIUM CHLORIDE 0.9% 500 ML 500 ML IV SCH ×3 (21:19→21:21)
[2018-09-26] MEDS: SODIUM CHLORIDE 0.9% 1,000 ML IV SCH (21:21)
[2018-09-26 21:27] LABS: Basophils % (A) 0 %; Eosinophils % (A) 0 %; HCT 40.4 % (34.0-46.0); Lymphocytes # (A) 0.8 k/uL (1.0-4.8); Lymphocytes % (A) 5 %; MCH 30.9 pg (25.0-35.0); MCHC 34.6 g/dL (31.0-37.0); MCV 89.2 fL (80.0-100.0); Mean Platelet Volume 7.7; Monocytes # (A) 0.5 k/uL (0-1.0); Monocytes % (A) 3 %; Neutrophils # (A) 15.6 k/uL (1.3-7.7); Neutrophils % (A) 91 %; Platelet Count 275 k/uL (150-450); RBC 4.52 m/uL (3.80-5.40); RDW 13.7 % (11.5-15.5); WBC 17.1 k/uL (3.8-10.6)
[2018-09-26 21:33] LABS: INR 0.9 (<1.2); Partial Thromboplastin Time 26.7 sec (22.0-30.0); Prothrombin Time 9.8 sec (9.0-12.0)
[2018-09-26 21:35] LABS: ALT 18 U/L (9-52); AST 33 U/L (14-36); Alkaline Phosphatase 79 U/L (38-126); Anion Gap 13 mmol/L; Blood Urea Nitrogen 19 mg/dL (7-17); Calcium 9.4 mg/dL (8.4-10.2); Carbon Dioxide 18 mmol/L (22-30); Chloride 105 mmol/L (98-107); Glucose 159 mg/dL (74-99); Magnesium 1.9 mg/dL (1.6-2.3); Potassium 3.4 mmol/L (3.5-5.1); Sodium 136 mmol/L (137-145); Total Bilirubin 0.5 mg/dL (0.2-1.3); Total Protein 6.9 g/dL (6.3-8.2)
--- NOTE | 2018-09-26 21:48 | XR ---
EXAMINATION TYPE: XR chest 2V DATE OF EXAM: 09/26/2018 COMPARISON: 09/02/2018 HISTORY: Fever TECHNIQUE: Frontal and lateral views of the chest are obtained. FINDINGS: There is some patchy airspace infiltrate in the left lower lobe. There is no heart failure . There is pulmonary emphysema in the upper lobes. I see no definite pleural effusion. There are calc ified granulomata in the lungs. IMPRESSION: Emphysema. New left lower lobe pneumonia compared to old exam.
[2018-09-26] MEDS ORDERED: AZITHROMYCIN 500 MG in SODIUM CHLORIDE 0.9% 250 ML IVPB STA (22:49)
[2018-09-26] MEDS ORDERED: IPRATROPIUM-ALBUTEROL 3 ML NEB INHALATION PRN (23:58)
[2018-09-26] MEDS ORDERED: PNEUMONIA PROTOCOL UTILIZED 1 EACH MISC PO PRN (23:58)
[2018-09-27 00:23] LABS: Appearance,Urine Clear (Clear); Bilirubin,Urine Negative (Negative); Blood,Urine Small (Negative); Color,Urine Yellow; Glucose,Urine (UA) Negative (Negative); Hyaline Casts,Urine 3 /lpf (0-2); Ketones,Urine Trace (Negative); Leukocyte Esterase,Urine Negative (Negative); Mucus,Urine Few /hpf; Nitrite,Urine Negative (Negative); Protein,Urine 1+ (Negative); RBC,Urine 1 /hpf (0-5); Specific Gravity,Urine 1.009 (1.001-1.035); Squamous Epithelial Cell,Urine <1 /hpf (0-4); Urobilinogen,Urine <2.0 mg/dL (<2.0); WBC,Urine 2 /hpf (0-5)
[2018-09-27 01:01] VITALS: BMI 20.7
[2018-09-27] MEDS: ONDANSETRON 4 MG/2 ML VIAL IVP PRN ×2 (02:40→08:43)
[2018-09-27] MEDS ORDERED: RX INFO: IV CONTRAST WAS GIVEN 1 EACH MISC MISCELLANE PRN (02:44)
--- NOTE | 2018-09-27 08:09 | CT ---
EXAMINATION TYPE: CT brain w con DATE OF EXAM: 09/27/2018 COMPARISON: CT brain April 11, 2018 HISTORY: Nausea, Vomiting and Diarrhea CT DLP: 1099.4 mGycm Automated exposure control for dose reduction was used. CONTRAST: CT scan of the head is performed with IV Contrast, patient injected with 100 ml mL of Isovue 300. FINDINGS: There is no abnormal enhancing mass or midline shift identified. Bilateral basal ganglia calcificatio ns mimic enhancement at this level. The ventricles and sulci are stable in size from prior. Some low -attenuation in the periventricular white matter remains present. Possible small arachnoid cyst poste rior aspect of the posterior fossa left greater than right in size coronal image 53 for reference. No inferior cerebellar tonsillar descent noted. The globes are intact and the visualized sinuses are cl ear. IMPRESSION: No suspicious enhancing intraparenchymal mass. Mild chronic small vessel ischemic change redemonstrated. Suspect small posterior bilateral arachnoid cysts, left greater than right with local mass effect. No significant interval change.
--- NOTE | 2018-09-27 08:09 | XR ---
EXAMINATION TYPE: XR chest 2V DATE OF EXAM: 09/27/2018 COMPARISON: Prior chest x-ray 09/26/2018 HISTORY: Pneumonia TECHNIQUE: Frontal and lateral views of the chest are obtained. FINDINGS: Heart size is stable. Interstitium is increased, minimal patchy density at the lung bases persists. Underlying emphysematous change, scarring suspected at the lung apices. No evident pneumoth orax or pleural effusion. There are overlying cardiac leads. Postprocedural changes noted to the vert ebral body. The thoracolumbar junction is stable. Old granulomatous disease again noted. IMPRESSION: Correlate to exclude congestive heart failure in a patient with pre-existing COPD, pneum onia not excluded.
[2018-09-27] MEDS: SODIUM CHLORIDE 0.9% 1,000 ML IV SCH (08:43)
[2018-09-27] MEDS ORDERED: ACETAMINOPHEN TAB 325 MG TAB PO PRN (08:55)
[2018-09-27] MEDS ORDERED: MORPHINE SULFATE 2 MG/ML SYRINGE IVP PRN (08:57)
[2018-09-27] MEDS ORDERED: DULoxetine HCL 60 MG CAPSULE.DR PO SCH (09:00)
[2018-09-27] MEDS: GABAPENTIN 100 MG CAP PO SCH ×3 (09:16→21:33)
[2018-09-27] MEDS: POTASSIUM CHLORIDE 10 MEQ in WATER FOR INJECTION 1 100ML.BAG IVPB SCH ×4 (10:13→16:45)
[2018-09-27] MEDS: DULoxetine HCL 30 MG CAPSULE.DR PO SCH (10:14)
[2018-09-27] MEDS: tiZANidine 4 MG TAB PO SCH ×2 (10:14→21:33)
--- NOTE | 2018-09-27 13:57 | P.HPIM ---
History of Present Illness H&P Date: 09/27/18 52 years old female patient of Dr. Lacy with past medical history of COPD, current smoker, anxiety and depression last admitted in April 2018 left second and third metatarsal fractures and T12 fracture comes in this time with acute onset of nausea, vomiting that started 3 days ago with worsening of shortness of breath and sputum production for past 4 days. According to patient she had a dental pain and was treated prophylactically with antibiotics as outpatient with Dr. Chang but despite being on antibiotics patient started having worsening shortness of breath or cough production. She also complains of generalized pain and decided to come to the ER. On evaluation patient had leukocytosis Vital suggested temp of 103, pulse 80, respiratory rate 20, blood pressure 1:30/ 80 saturating well on 4 L in the ER currently on room air. Labs obtained suggested a leukocytosis of 17.1 potassium 3.4 carbon dioxide 18, creatinine 0.78. Urinalysis was negative for infection lactic acid was normal influenza was negative. Patient was admitted for sepsis secondary to left lower lobe pneumonia. Antibiotic initiated in the form of ceftriaxone and azithromycin. On evaluation patient feels better but does have shortness of breath on exertion complains of multiple episodes of vomiting which got better with Zofran. Patient does complain of generalized body aches despite being on Percocet Review of Systems Constitutional: Reports chronic pain, Reports fatigue, Reports fever, Reports lethargy, Reports weakness Eyes: denies blurred vision, denies decreased vision, denies dry eye Ears: deny: decreased hearing, ear discharge, earache Ears, nose, mouth and throat: Reports dental pain, Denies bleeding gums, Denies headache, Denies hoarseness, Denies neck lump, Denies nose pain, Denies odynophagia Cardiovascular: Reports dyspnea on exertion, Reports shortness of breath, Denies chest pain, Denies decreased exercise tolerance, Denies edema, Denies high blood pressure, Denies irregular heart beat, Denies leg edema Respiratory: Reports congestion, Reports cough, Reports cough with sputum, Reports dyspnea, Reports excessive sputum, Reports wheezing Gastrointestinal: Denies belching, Denies bloating, Denies BRBPR, Denies change in bowel habits, Denies constipation, Denies excessive gas, Denies heartburn Genitourinary: Denies dysuria, Denies urgency, Denies urinary frequency Menstruation: Reports period normal Musculoskeletal: Reports low back pain, Reports muscle cramps, Denies arm numbness/tingling, Denies leg numbness/tingling, Denies limitation of motion, Denies loss of height, Denies muscle weakness Musculoskeletal: absent: ankle pain, ankle swelling, elbow pain, elbow swelling Integumentary: Denies acne, Denies brittle nails, Denies change in hair/nails Neurological: Denies aphasia, Denies ataxia, Denies balance difficulties, Denies change in smell/taste, Denies change in speech, Denies convulsions, Denies loss of vision, Denies motor disturbance, Denies numbness, Denies paralysis Psychiatric: Denies anxiety, Denies depression Endocrine: Reports fatigue, Denies high blood sugars, Denies palpitations, Denies polydipsia, Denies polyphagia, Denies polyuria Past Medical History Past Medical History: COPD, Fibromyalgia Additional Past Medical History / Comment(s): Degenerative disc disease of the spine, restless leg syndrome, wears back brace, awaiting orthotic for left foot , hx of 2 fx left foot History of Any Multi-Drug Resistant Organisms: None Reported Past Surgical History: Breast Surgery, Orthopedic Surgery Additional Past Surgical History / Comment(s): left knee, bilateral breast lumpectomy, endoscopy. T12 surgery Past Anesthesia/Blood Transfusion Reactions: Postoperative Nausea & Vomiting ( PONV) Past Psychological History: Anxiety Smoking Status: Current every day smoker Past Alcohol Use History: Rare Additional Past Alcohol Use History / Comment(s): smokes 1ppd from teens Past Drug Use History: None Reported - Past Family History Mother Family Medical History: No Reported History Medications and Allergies Home Medications Medication Instructions Recorded Confirmed Type DULoxetine HCL [Cymbalta] 30 mg PO QAM 03/19/17 09/27/18 History DULoxetine HCL [Cymbalta] 60 mg PO QAM 03/19/17 09/27/18 History Acetaminophen Tab [Tylenol] 650 mg PO Q4H PRN 04/11/18 09/27/18 History Albuterol Inhaler [Ventolin Hfa 1 - 2 puff INHALATION RT-Q6H PRN 04/11/18 History Inhaler] Budesonide/Formoterol Fumarate 2 puff INHALATION RT-BID 04/11/18 09/27/18 History [Symbicort 160-4.5 Mcg Inhaler] Montelukast [Singulair] 10 mg PO HS 04/11/18 09/27/18 History rOPINIRole HCL [Requip] 0.75 mg PO HS 04/11/18 09/27/18 History Ipratropium-Albuterol Nebulize 3 ml INHALATION RT-TID #90 04/13/18 09/27/18 Rx [Duoneb 0.5 mg-3 mg/3 ml Soln] ampul.neb Meloxicam [Mobic] 15 mg PO DAILY 09/02/18 09/27/18 History oxyCODONE-APAP 7.5-325MG [Percocet 1 each PO BID 09/02/18 09/27/18 History 7.5-325 mg] tiZANidine [Zanaflex] 4 mg PO BID 09/02/18 09/27/18 History Eszopiclone [Lunesta] 1 mg PO HS PRN 09/27/18 09/27/18 History Gabapentin [Neurontin] 300 mg PO 09/27/18 History Ibuprofen [Motrin] 800 mg PO Q8HR PRN 09/27/18 09/27/18 History Levofloxacin [Levaquin] 500 mg PO DAILY #7 tab 09/27/18 Rx Loratadine 10 mg PO DAILY 09/27/18 09/27/18 History predniSONE 40 mg PO DAILY #14 tab 09/27/18 Rx Allergies Allergy/AdvReac Type Severity Reaction Status Date / Time No Known Allergies Allergy Verified 09/27/18 10:16 Physical Exam Vitals: Vital Signs Temp Pulse Pulse Resp BP BP Pulse Ox 09/27/18 07:10 99.1 F 18 144/84 93 L 09/27/18 07:09 78 09/27/18 00:33 98.1 F 80 20 130/80 96 09/26/18 23:00 98.6 F 96 24 134/78 96 09/26/18 22:30 99 22 123/71 96 09/26/18 22:00 100.1 F H 98 22 127/78 94 L 09/26/18 21:00 121 H 21 126/75 92 L 09/26/18 20:19 103 F H 130 H 24 129/68 91 L Intake and Output 09/26/18 09/27/18 09/27/18 22:59 06:59 14:59 Intake Total 720 400 Output Total 2 Balance 720 398 Intake: Intake, IV Titration 400 Amount Potassium Chloride 10 meq 100 In Water For Injection 1 100ml.bag @ 25 mls/hr IVPB Q1H [facility] Rx#: [id number] Sodium Chloride 0.9% 1, 300 000 ml @ 75 mls/hr IV . [id number] [facility] Rx#:[id number] Oral 720 Output: Stool 2 Other: # Voids 3 2 Weight 56.699 kg 56.699 kg - Constitutional General appearance: cooperative, no acute distress, obese - EENT Eyes: anicteric sclerae, PERRLA, normal appearance ENT: hearing grossly normal poor dental hygiene - Neck Neck: no lymphadenopathy, normal ROM, no other, no rigidity, no stridor, no thyromegaly - Respiratory Respiratory: bilateral: Crackles at the left lung base with wheezing - Cardiovascular Rhythm: regular Heart sounds: normal: S1, S2 Abnormal Heart Sounds: no systolic murmur, no diastolic murmur, no rub, no S3 Gallop, no S4 Gallop, no click, no other - Gastrointestinal General gastrointestinal: normal bowel sounds, soft - Integumentary Integumentary: no rash - Neurologic Neurologic: CNII-XII intact - Musculoskeletal Musculoskeletal: gait normal, strength equal bilaterally - Psychiatric Psychiatric: A&O x's 3, appropriate affect Results CBC & Chem 7: 09/26/18 21:07 09/26/18 21:07 Labs: Abnormal Lab Results - Last 24 Hours (Table) 09/26/18 09/26/18 09/27/18 Range/Units 21:07 21:07 00:03 WBC 17.1 H (3.8-10.6) k/uL Neutrophils # 15.6 H (1.3-7.7) k/uL Lymphocytes # 0.8 L (1.0-4.8) k/uL Sodium 136 L (137-145) mmol/L Potassium 3.4 L (3.5-5.1) mmol/L Carbon Dioxide 18 L (22-30) mmol/L BUN 19 H (7-17) mg/dL Glucose 159 H (74-99) mg/dL Urine Protein 1+ H (Negative) Urine Ketones Trace H (Negative) Urine Blood Small H (Negative) Hyaline Casts 3 H (0-2) /lpf Urine Mucus Few H (None) /hpf Microbiology - Last 24 Hours (Table) 09/27/18 00:03 Urine Culture - Preliminary Urine,Voided Thrombosis Risk Factor Assmnt - DVT/VTE Prophylaxis DVT/VTE Prophylaxis: Pharmacologic Prophylaxis ordered - Choose All That Apply Each Factor Represents 1 point: Abnormal pulmonary function (COPD), Age 41-60 years, Sepsis (< 1month) Thrombosis Risk Factor Assessment Total Risk Factor Score: 3 Thrombosis Risk Factor Assessment Level: Moderate Risk Assessment and Plan Plan: #1 sepsis secondary to community-acquired pneumonia. Continue Rocephin and azithromycin. Normal saline can be discontinued. CBC and CMP tomorrow morning. Patient does have some wheezing on examination. We will initiate on prednisone 40 mg by mouth daily. #2 H?O T12 compression fracture with left metatarsals second and third fracture. mamaged conservativery, stable #3 leukocytosis likely secondary to sepsis #4 hypokalemia potassium repleted. #5 DVT prophylaxis with heparin every 12 #6 GI prophylaxis with Pepcid 20 mg by mouth daily #7 Acute COPD exacerbation . Continue Symbicort. Continue DuoNeb as needed. Follow Dr. Chang as outpatient. #8 interstitial lung disease. Patient is unaware of this diagnosis. Will follow with Dr. Chang as outpatient #9 current tobacco abuse. Patient uncertain on effects of smoking on her lungs. Nicotine patch ordered. #10 pain control on percocet, tizanidine and cymbalta CODE STATUS full code
[2018-09-27] MEDS ORDERED: TEMAZEPAM 15 MG CAP PO PRN (14:05)
[2018-09-27] MEDS ORDERED: IBUPROFEN 800 MG TAB PO PRN (14:05)
[2018-09-27] MEDS: oxyCODONE-APAP 7.5-325MG 1 EACH TAB PO SCH ×2 (15:09→21:32)
[2018-09-27] MEDS: predniSONE 20 MG TAB PO SCH (15:09)
[2018-09-27] MEDS: SYMBICORT 160-4.5 MCG INHALER INHALATION SCH (19:42)
[2018-09-27] MEDS ORDERED: AZITHROMYCIN 500 MG in SODIUM CHLORIDE 0.9% 250 ML IVPB SCH (21:00)
[2018-09-27] MEDS ORDERED: MONTELUKAST 10 MG TAB PO SCH (21:00)
[2018-09-27] MEDS ORDERED: cefTRIAXone 1,000 MG VIAL (IM USE) IM SCH (21:00)
[2018-09-28] MEDS: SYMBICORT 160-4.5 MCG INHALER INHALATION SCH (07:14)
[2018-09-28] MEDS: tiZANidine 4 MG TAB PO SCH (07:33)
[2018-09-28] MEDS: predniSONE 20 MG TAB PO SCH (07:33)
[2018-09-28] MEDS: GABAPENTIN 100 MG CAP PO SCH (07:33)
[2018-09-28] MEDS: oxyCODONE-APAP 7.5-325MG 1 EACH TAB PO SCH (07:33)
[2018-09-28] MEDS: DULoxetine HCL 30 MG CAPSULE.DR PO SCH (07:33)
[2018-09-28 07:42] VITALS: BP 131/77; PULSE 90; RESP 20; TEMP 97.8
[2018-09-28 08:37] LABS: Basophils % (A) 0 %; Eosinophils % (A) 0 %; HCT 32.8 % (34.0-46.0); Lymphocytes # (A) 1.8 k/uL (1.0-4.8); Lymphocytes % (A) 17 %; MCH 29.8 pg (25.0-35.0); MCHC 32.9 g/dL (31.0-37.0); MCV 90.5 fL (80.0-100.0); Mean Platelet Volume 7.4; Monocytes # (A) 0.5 k/uL (0-1.0); Monocytes % (A) 4 %; Neutrophils # (A) 8.5 k/uL (1.3-7.7); Neutrophils % (A) 78 %; Platelet Count 279 k/uL (150-450); RBC 3.62 m/uL (3.80-5.40); RDW 14.2 % (11.5-15.5)
[2018-09-28 08:47] LABS: ALT 27 U/L (9-52); AST 36 U/L (14-36); Albumin 3.1 g/dL (3.5-5.0); Alkaline Phosphatase 52 U/L (38-126); Anion Gap 9 mmol/L; Blood Urea Nitrogen 15 mg/dL (7-17); Calcium 9.3 mg/dL (8.4-10.2); Carbon Dioxide 22 mmol/L (22-30); Chloride 111 mmol/L (98-107); Glucose 103 mg/dL (74-99); HGB 10.8 gm/dL (11.4-16.0); Potassium 4.3 mmol/L (3.5-5.1); Sodium 142 mmol/L (137-145); Total Bilirubin 0.2 mg/dL (0.2-1.3); Total Protein 5.8 g/dL (6.3-8.2)
--- NOTE | 2018-09-28 15:22 | P.DS ---
Providers Date of admission: 09/26/18 23:57 Attending physician: Zack Ansari MD Primary care physician: Sampson Nova [facility] Course: 52 years old female patient of Dr. Lacy with past medical history of COPD, current smoker, anxiety and depression last admitted in April 2018 left second and third metatarsal fractures and T12 fracture comes in this time with acute onset of nausea, vomiting that started 3 days ago with worsening of shortness of breath and sputum production for past 4 days. According to patient she had a dental pain and was treated prophylactically with antibiotics as outpatient with Dr. Chang but despite being on antibiotics patient started having worsening shortness of breath or cough production. She also complains of generalized pain and decided to come to the ER. On evaluation patient had leukocytosis Vital suggested temp of 103, pulse 80, respiratory rate 20, blood pressure 1:30/ 80 saturating well on 4 L in the ER currently on room air. Labs obtained suggested a leukocytosis of 17.1 potassium 3.4 carbon dioxide 18, creatinine 0.78. Urinalysis was negative for infection lactic acid was normal influenza was negative. Patient was admitted for sepsis secondary to left lower lobe pneumonia. Antibiotic initiated in the form of ceftriaxone and azithromycin. On evaluation patient feels better but does have shortness of breath on exertion complains of multiple episodes of vomiting which got better with Zofran. Patient does complain of generalized body aches despite being on Percocet 09/28 patient evaluated bedside feels much better than yesterday. With improvement of shortness of breath and cough. Wheezing improved. Pro- calcitonin elevated. Continue levofloxacin for 7 days with prednisone Discharge diagnosis #1 sepsis secondary to community-acquired pneumonia with bronchitis . #2 H?O T12 compression fracture with left metatarsals second and third fracture #3 leukocytosis likely secondary to sepsis #4 hypokalemia #5 Acute COPD exacerbation #6 interstitial lung disease.t #7 current tobacco abuse. CC a copy of discharge to Dr. Nova Disposition home withself care Patient Condition at Discharge: Fair Plan - Discharge Summary New Discharge Prescriptions: New Levofloxacin [Levaquin] 500 mg PO DAILY #7 tab predniSONE 40 mg PO DAILY #14 tab Continue DULoxetine HCL [Cymbalta] 60 mg PO QAM DULoxetine HCL [Cymbalta] 30 mg PO QAM Acetaminophen Tab [Tylenol] 650 mg PO Q4H PRN PRN Reason: Pain Albuterol Inhaler [Ventolin Hfa Inhaler] 1 - 2 puff INHALATION RT-Q6H PRN PRN Reason: Shortness Of Breath Budesonide/Formoterol Fumarate [Symbicort 160-4.5 Mcg Inhaler] 2 puff INHALATION RT-BID Montelukast [Singulair] 10 mg PO HS rOPINIRole HCL [Requip] 0.75 mg PO HS Ipratropium-Albuterol Nebulize [Duoneb 0.5 mg-3 mg/3 ml Soln] 3 ml INHALATION RT-TID #90 ampul.neb Meloxicam [Mobic] 15 mg PO DAILY oxyCODONE-APAP 7.5-325MG [Percocet 7.5-325 mg] 1 each PO BID tiZANidine [Zanaflex] 4 mg PO BID Eszopiclone [Lunesta] 1 mg PO HS PRN PRN Reason: Insomnia Loratadine 10 mg PO DAILY Ibuprofen [Motrin] 800 mg PO Q8HR PRN PRN Reason: Pain Gabapentin [Neurontin] 300 mg PO Discontinued Amoxic-Pot Clav 500-125 mg [Augmentin 500-125 mg] 1 tab PO BID Discharge Medication List DULoxetine HCL [Cymbalta] 30 mg PO QAM 03/19/17 [History] DULoxetine HCL [Cymbalta] 60 mg PO QAM 03/19/17 [History] Acetaminophen Tab [Tylenol] 650 mg PO Q4H PRN 04/11/18 [History] Albuterol Inhaler [Ventolin Hfa Inhaler] 1 - 2 puff INHALATION RT-Q6H PRN [History] Budesonide/Formoterol Fumarate [Symbicort 160-4.5 Mcg Inhaler] 2 puff INHALATION RT-BID 04/11/18 [History] Montelukast [Singulair] 10 mg PO HS 04/11/18 [History] rOPINIRole HCL [Requip] 0.75 mg PO HS 04/11/18 [History] Ipratropium-Albuterol Nebulize [Duoneb 0.5 mg-3 mg/3 ml Soln] 3 ml INHALATION RT -TID #90 ampul.neb 04/13/18 [Rx] Meloxicam [Mobic] 15 mg PO DAILY 09/02/18 [History] oxyCODONE-APAP 7.5-325MG [Percocet 7.5-325 mg] 1 each PO BID 09/02/18 [History] tiZANidine [Zanaflex] 4 mg PO BID 09/02/18 [History] Eszopiclone [Lunesta] 1 mg PO HS PRN 09/27/18 [History] Gabapentin [Neurontin] 300 mg PO 09/27/18 [History] Ibuprofen [Motrin] 800 mg PO Q8HR PRN 09/27/18 [History] Levofloxacin [Levaquin] 500 mg PO DAILY #7 tab 09/27/18 [Rx] Loratadine 10 mg PO DAILY 09/27/18 [History] predniSONE 40 mg PO DAILY #14 tab 09/27/18 [Rx] Follow up Appointment(s)/Referral(s): Sampson Nova MD [Primary Care Provider] - 1-2 days Discharge Disposition: HOME SELF-CARE
== END 2018-09-28 14:11 | disposition home or self-care (01) | DRG 871 ==
LOC: EC 20:18 → 4SSUR 23:57
PROVIDERS: ADMIT Internal Medicine; ATTEND Internal Medicine
DX: A41.9 Sepsis, unspecified organism (principal); J18.9 Pneumonia, unspecified organism; J44.0 Chronic obstructive pulmonary disease with (acute) lower respiratory infection; J44.1 Chronic obstructive pulmonary disease with (acute) exacerbation; F17.210 Nicotine dependence, cigarettes, uncomplicated; E87.6 Hypokalemia; F32.9 Major depressive disorder, single episode, unspecified; F41.9 Anxiety disorder, unspecified; G25.81 Restless legs syndrome; K08.89 Other specified disorders of teeth and supporting structures; Z87.311 Personal history of (healed) other pathological fracture; Z87.81 Personal history of (healed) traumatic fracture; M79.7 Fibromyalgia; R65.20 Severe sepsis without septic shock; Z79.1 Long term (current) use of non-steroidal anti-inflammatories (NSAID); Z79.51 Long term (current) use of inhaled steroids; Z79.899 Other long term (current) drug therapy
CPT/HCPCS: 36415; 70460; 71046; 80053; 81001; 83605; 83735; 84145; 84484; 85025; 85610; 85730; 87040; 87045; 87046; 87070; 87086; 87205; 87324; 87502; 93005; 94760; 96361; 96365; 96367; 96375; 99285

== ENCOUNTER 2018-12-09 07:34 | Day surgery (SDC) | payer MEDICARE, OTHER ==
[2018-12-06 16:07] VITALS: BMI 21.8
[~2018-12-09 07:34] MED LIST changes: -DEXAMETHASONE SOD PHOSPHATE 10 MG/ML 1 ML VIAL IV ONE; -HYDROmorphone 0.5 MG/0.5 ML SYRINGE IVP PRN; -MIDAZOLAM 2 MG/2 ML VIAL IV PRN; -ONDANSETRON 4 MG/2 ML VIAL IVP ONE; -SCOPOLAMINE 1.5MG/72HR PATCH TRANSDERM ONE; -ceFAZolin IN SWFI 2 GM/20 ML SYRINGE IVP ONE
[2018-12-09 07:56] VITALS: TEMP 97.5
[2018-12-09] MEDS ORDERED: ONDANSETRON 4 MG/2 ML VIAL IVP ONE (08:02)
[2018-12-09] MEDS ORDERED: PROPOFOL 10 MG/ML 20 ML VIAL IV ONE (09:08)
[2018-12-09] MEDS ORDERED: LIDOCAINE 1% INJ 10MG/ML (20 ML MDV) ONE (09:08)
[2018-12-09] MEDS ORDERED: IV FLUID CONTINUATION 400 ML IV ONE (09:29)
[2018-12-09 09:32] VITALS: RESP 18
--- NOTE | 2018-12-09 09:33 | P.PCN ---
Date of Procedure: 12/09/18 Procedure(s) Performed: Procedure: Esophagogastroduodenoscopy and biopsy. Preoperative diagnosis: Gastroesophageal reflux, gas and bloating not responding to medical therapy. Postoperative diagnosis: 1. Sliding hiatal hernia with no definite esophagitis or complicated reflux disease. 2. Mild gastritis and duodenitis. 3. Biopsies obtained from the duodenum, antrum and esophagus. Preparation and sedation: Was provided by anesthesia. Brief clinical history: The patient is a 53-year-old female who was evaluated in the office last month for issues with heartburn reflux as well as bloating and gas after she eats or drinks. She denied any alarm symptoms. No nausea or vomiting. Her computed tomography scan of the abdomen and pelvis last September 2018 was normal. An upper endoscopy in February 2017 showed hiatal hernia and evidence of reflux esophagitis on biopsy. Colonoscopy was not done because of poor preparation. A recent cologuard test is negative. This evaluation is to assess for esophagitis, complicated reflux disease or other pathology. Procedure: With the patient on her left lateral decubitus position and after informed consent and adequate sedation, I passed the Olympus-GIF H1 90 video upper endoscope through the cricopharyngeus down the esophagus. GE junction was around 38 cm from the incisors and there was a 1-2 cm sliding hiatal hernia but no obvious esophagitis or complicated reflux disease. The endoscope was then passed into the stomach which was insufflated with air and inspected in detail including the retroflex view in the cardia. There was some mottling and erythema in the antrum but no ulcers or erosions. Pyloric channel did not show any ulcers. Duodenal bulb, post bulbar area and descending duodenum showed minimal erythema. I obtained biopsies from the duodenum, antrum and esophagus then the endoscope was withdrawn. The patient tolerated the procedure well. Plan: The patient was reassured. Will await biopsy results and make further plans based on her course and biopsy results.
[2018-12-09 09:44] VITALS: BP 136/92; PULSE 81
== END 2018-12-09 10:30 | disposition home or self-care (01) ==
LOC: ORWHC2ENDO 07:34
DX: K21.0 Gastro-esophageal reflux disease with esophagitis (principal); K29.70 Gastritis, unspecified, without bleeding; K29.80 Duodenitis without bleeding; K31.9 Disease of stomach and duodenum, unspecified; K44.9 Diaphragmatic hernia without obstruction or gangrene; Z79.899 Other long term (current) drug therapy; M79.7 Fibromyalgia; J44.9 Chronic obstructive pulmonary disease, unspecified; F17.200 Nicotine dependence, unspecified, uncomplicated; Z79.51 Long term (current) use of inhaled steroids
CPT/HCPCS: 43239; 88305

== ENCOUNTER → 2019-02-01 | Outpatient (CLI) | payer MEDICARE, OTHER ==
--- NOTE | 2019-02-02 09:40 | NM ---
EXAMINATION TYPE: NM bone SPECT DATE OF EXAM: 02/02/2019 COMPARISON: NONE HISTORY: Low back pain TECHNIQUE: After the intravenous administration of 25.6 mCi Tc 99m MDP. FINDINGS: There is abnormal uptake in the region of the anterior margin the right 11th, 12th rib and a mid left rib cage which is intense suggestive of previous fracture. Uptake in the right renal hilum may represent extrarenal pelvis or mild hydronephrosis correlate with ultrasound as clinically warranted. There is moderate intensity abnormal uptake at the approximate level of L1 or T12 accounting for the history of previous compression fracture. Faint abnormal uptake is seen in involving the lower lumbar spine at L4-5 and L5-S1. This likely is d egenerative. IMPRESSION: 1. Abnormal uptake involving the rib cage suggest previous fractures correlate clinically. 2. Abnormal uptake at the thoracolumbar junction likely related the history of previous compression f racture. 3. Abnormal uptake involving the lower lumbar spine appears to be likely degenerative correlate with x-ray.
== END ==
LOC: RADNMMAIN 09:53
PROVIDERS: ATTEND Orthopaedic Surgery Orthopaedic Surgery of the Spine
DX: R93.7 Abnormal findings on diagnostic imaging of other parts of musculoskeletal system (principal); F17.218 Nicotine dependence, cigarettes, with other nicotine-induced disorders
CPT/HCPCS: 78320; A9503

== ENCOUNTER 2019-04-18 12:30 | Inpatient (IN) | payer OTHER, MEDICARE ==
[2019-04-27] MEDS ORDERED: LIDOCAINE 1% 20 ML VIAL (10MG/ML) FOR IV START INTRADERMA PRN (05:53)
[2019-04-27] MEDS ORDERED: DEXAMETHASONE SOD PHOSPHATE 10 MG/ML 1 ML VIAL IV ONE (05:53)
[2019-04-27] MEDS ORDERED: ONDANSETRON 4 MG/2 ML VIAL IVP ONE (05:53)
[2019-04-27] MEDS ORDERED: BACITRACIN 50,000 UNIT, POLYMYXIN B 500,000 UNIT in SODIUM CHLORIDE 0.9% IRRIGATIO 1,00... IRRIGATION ONE (07:00)
[2019-04-27] MEDS ORDERED: VANCOMYCIN 1,000 MG in SODIUM CHLORIDE 0.9% 250 ML IVPB ONE (07:00)
[2019-04-27] MEDS: LACTATED RINGERS 1,000 ML IV SCH ×2 (10:51→12:05)
[2019-04-27] MEDS ORDERED: MIDAZOLAM 2 MG/2 ML VIAL ONE (11:49)
[2019-04-27] MEDS ORDERED: PROPOFOL 10 MG/ML 20 ML VIAL IV ONE (11:49)
[2019-04-27] MEDS ORDERED: HEPARIN SODIUM,PORCINE 10,000 UNIT/ML 1 ML VIAL ONE (11:49)
[2019-04-27] MEDS ORDERED: SODIUM CHLORIDE 0.9% IRRIG 1,000 ML BTL IRRIGATION ONE (11:49)
[2019-04-27] MEDS ORDERED: LIDOCAINE 1% INJ 10MG/ML (20 ML MDV) ONE (11:49)
[2019-04-27] MEDS ORDERED: fentaNYL (PF) 50 MCG/ML 2 ML AMP ONE (11:49)
[2019-04-27] MEDS ORDERED: ePHEDrine SULFATE/0.9% NACL/PF 50 MG/5 ML SYRINGE IV ONE (11:49)
[2019-04-27] MEDS ORDERED: PHENYLEPHRINE-0.9% NACL SYG 1 MG/10 ML SYRINGE ONE (11:49)
[2019-04-27] MEDS ORDERED: SUCCINYLCHOLINE CHLORIDE 100 MG/5 ML SYR IV ONE (11:49)
[2019-04-27] MEDS ORDERED: ROCURONIUM BROMIDE 10 MG/ML 10 ML VIAL IV ONE (11:49)
[2019-04-27] MEDS ORDERED: LIDOCAINE 0.5%-EPI 1:200,000 50 ML VIAL SQ ONE (12:44)
[2019-04-27] MEDS ORDERED: THROMBIN (BOVINE) 5,000 UNIT VIAL TOPICAL ONE (12:44)
[2019-04-27] MEDS ORDERED: GELATIN SPONGE,ABSORB (SMALL) 1 EACH SPONGE TOPICAL ONE (12:45)
--- NOTE | 2019-04-27 16:06 | XR ---
Lumbar spine HISTORY: Lumbar fusion 6 intraoperative C-arm images document the procedure.
--- NOTE | 2019-04-27 16:07 | FL ---
Fluoroscopy HISTORY: Lumbar fusion 2 minutes 10 seconds fluoroscopy time supplied to the referring clinician. 6 intraoperative C-arm im ages document the procedure. See dictated report from orthopedic surgery.
[2019-04-27] MEDS ORDERED: MAGNESIUM HYDROXIDE 2,400 MG/10 ML CUP PO PRN (16:10)
[2019-04-27] MEDS ORDERED: BENZOCAINE/MENTHOL LOZENG 1 EACH LOZENGE MUCOUS MEM PRN (16:10)
[2019-04-27] MEDS ORDERED: HYDROmorphone 0.5 MG/0.5 ML SYRINGE IVP PRN (16:10)
[2019-04-27] MEDS ORDERED: HYDROmorphone 1 MG/ML 1 ML SYRINGE IVP PRN (16:10)
[2019-04-27] MEDS: HYDROmorphone 0.5 MG/0.5 ML SYRINGE IVP PRN ×7 (16:25→22:51)
[2019-04-27] MEDS ORDERED: ONDANSETRON 4 MG/2 ML VIAL IVP PRN (16:30)
[2019-04-27] MEDS ORDERED: HYDROcodone/APAP 5-325MG 1 EACH TAB PO PRN (16:30)
[2019-04-27] MEDS ORDERED: ALBUTEROL NEBULIZED 2.5 MG/3 ML INHALATION PRN (16:34)
[2019-04-27] MEDS ORDERED: ACETAMINOPHEN TAB 325 MG TAB PO PRN (16:34)
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
[2019-04-27] MEDS: fentaNYL (PF) 50 MCG/ML 2 ML AMP IVP ONE ×2 (16:50→17:05)
[2019-04-27] MEDS ORDERED: diphenhydrAMINE 50 MG/ML 1 ML VIAL IVP ONE (17:06)
[2019-04-27] MEDS: oxyCODONE-APAP 7.5-325MG 1 EACH TAB PO PRN (17:40)
[2019-04-27] MEDS: SODIUM CHLORIDE 0.9% 1,000 ML IV SCH ×2 (17:41→22:51)
[2019-04-27 18:16] VITALS: BMI 21.9
[2019-04-27] MEDS: CYCLOBENZAPRINE 10 MG TAB PO SCH (19:43)
[2019-04-27] MEDS: MONTELUKAST 10 MG TAB PO SCH (19:44)
[2019-04-27] MEDS: SYMBICORT 160-4.5 MCG INHALER INHALATION SCH (19:59)
[2019-04-27] MEDS: IPRATROPIUM-ALBUTEROL 3 ML NEB INHALATION SCH (19:59)
[2019-04-27] MEDS: HYDROcodone/APAP 5-325MG 1 EACH TAB PO PRN (20:37)
[2019-04-28] MEDS: HYDROcodone/APAP 5-325MG 1 EACH TAB PO PRN ×6 (00:53→19:40)
[2019-04-28] MEDS: HYDROmorphone 0.5 MG/0.5 ML SYRINGE IVP PRN ×4 (02:02→19:39)
[2019-04-28] MEDS: SYMBICORT 160-4.5 MCG INHALER INHALATION SCH ×2 (06:50→18:45)
[2019-04-28] MEDS: IPRATROPIUM-ALBUTEROL 3 ML NEB INHALATION SCH ×3 (06:50→18:45)
--- NOTE | 2019-04-28 07:38 | XR ---
EXAMINATION TYPE: XR chest 1V portable DATE OF EXAM: 04/28/2019 COMPARISON: 04/21/2019 HISTORY: Shortness of breath TECHNIQUE: Single frontal view of the chest is obtained. FINDINGS: There are hazy strand-like bibasilar opacities that have developed in the interim. Biapica l lucency represents underlying COPD. Thoracolumbar junction kyphoplasty change. Cardia mediastinal s ilhouette is again enlarged. No sizable pleural effusion or pneumothorax. IMPRESSION: Basilar reticular opacities likely represent atelectasis with underlying COPD. However developing pne umonia as an alternative consideration.
[2019-04-28 07:53] LABS: Basophils % (A) 0 %; Eosinophils # (A) 0.1 k/uL (0-0.7); Eosinophils % (A) 1 %; HGB 11.2 gm/dL (11.4-16.0); Lymphocytes % (A) 9 %; MCH 29.3 pg (25.0-35.0); MCHC 32.9 g/dL (31.0-37.0); Mean Platelet Volume 7.2; Monocytes # (A) 0.4 k/uL (0-1.0); Monocytes % (A) 4 %; Neutrophils # (A) 9.1 k/uL (1.3-7.7); Neutrophils % (A) 86 %; Platelet Count 230 k/uL (150-450); RBC 3.83 m/uL (3.80-5.40); RDW 14.6 % (11.5-15.5); WBC 10.6 k/uL (3.8-10.6)
[2019-04-28] MEDS: LORATADINE 10 MG TAB PO SCH (08:06)
[2019-04-28] MEDS: SENNOSIDES-DOCUSATE SODIUM 1 EACH TAB PO SCH (08:06)
[2019-04-28] MEDS: PANTOPRAZOLE 40 MG TABLET PO SCH (08:06)
[2019-04-28] MEDS: CYCLOBENZAPRINE 10 MG TAB PO SCH ×2 (08:06→21:55)
[2019-04-28 08:07] LABS: African American GFR (CKD) >90 (>60 ml/min/1.73 sqM); Anion Gap 7 mmol/L; Blood Urea Nitrogen 10 mg/dL (7-17); Calcium 8.5 mg/dL (8.4-10.2); Carbon Dioxide 22 mmol/L (22-30); Chloride 105 mmol/L (98-107); Glucose 114 mg/dL (74-99); Non-African American GFR(CKD) >90 (>60 ml/min/1.73 sqM); Potassium 3.6 mmol/L (3.5-5.1); Sodium 134 mmol/L (137-145)
[2019-04-28] MEDS: DULoxetine HCL 30 MG CAPSULE.DR PO SCH (08:07)
[2019-04-28] MEDS: OXYBUTYNIN 15 MG TAB.ER.24 PO SCH (08:07)
[2019-04-28] MEDS ORDERED: DULoxetine HCL 60 MG CAPSULE.DR PO SCH (09:00)
[2019-04-28] MEDS: HYDROmorphone 1 MG/ML 1 ML SYRINGE IVP PRN ×3 (09:08→23:13)
--- NOTE | 2019-04-28 09:14 | P.PN ---
Progress Note - Text Progress Note Date: 04/28/19 Postoperative day #1 Patient is seen and examined today at bedside. The patient has some pain around the surgical site as expected. Pain is being controlled with medication. Prior to surgery she had been on Percocet regularly and this is making more difficult to control some of her pain. She is not breathing very deeply and is currently requiring subcoronal oxygen to maintain her O2 sat us. She is a positive smoking history. Physical Exam Afebrile with stable vital signs Abdomen is soft nontender. Chest has good excursion deep and space expiration The incision site is clean dry and intact. No erythema there is no purulence. Extremities have not had neurologic change from prior to surgery. She has difficulty with exerting significant effort in her motions neutral pain. She does have sustained dorsal flexion plantar flexion and EHL intact thighs Soft nontender. Calves and thighs were soft nontender without evidence of DVT. Assessment/Plan Postoperative day #1 status post minimally invasive decompression and fusion L4 5 L5-S1 for her spondylolisthesis with low back pain and lower extremity radiculopathy Patient is progressing as expected from the surgery. She may be somewhat slow in her recovery given her pain control issues we will try to encourage her mobility and ambulation. She'll get out of bed with therapy today. She has been having some difficulty maintaining her oxygen saturation. This may be treated due to her tobacco history but is also due to her somewhat shallow breathing with her pain and postoperatively. She is continue management per medicine. We will continue to increase the patient's mobilization with therapy. We will continue pain control with oral or IV medications. We'll continue to follow patient closely.
[2019-04-28] MEDS: NICOTINE 21MG/24HR PATCH TRANSDERM SCH (11:56)
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
--- NOTE | 2019-04-28 15:06 | P.CNPUL ---
History of Present Illness Consult date: 04/28/19 Reason for consult: dyspnea History of present illness: This is a 53-year-old female patient with developed shortness of breath following spine surgery. The patient is known to me as the patient has COPD with a baseline FEV1 of 64% of predicted and she has been maintained on Symbicort on outpatient basis. She is a chronic smoker. She also has other comorbidities including fibromyalgia, degenerative disc disease in the distal 6 syndrome. The patient underwent a laminectomy with decompression involving the L4-L5 and L5-S1 spine and this was done for chronic back pain. The patient was also having radiculopathy. Earlier this morning the patient became acutely short of breath. Heart rate was quite elevated above 100 and the patient became hypoxic and the patient was placed on 6 L of oxygen nasal cannula. Chest x-ray was done that showed an early right lower lobe pulmonary infiltration. Note that there is no reported history of aspiration at time of surgery or even postop. The patient was coughing out some yellowish sputum. Denied having any chest pain. Denied having any pleurisy or hemoptysis. She remained hemodynamically stable. She was producing adequate amount of urine output. Her renal function was stable with a creatinine of 0.6. [place] was attempted 0.6. The patient was using incentive spirometer although she was not using it aggressively. She had a temperature of 100.6. I saw the patient the bedside. I suspect a pneumonia and I started the patient IV Zosyn. She is hemodynamically stable and she is on normal saline at the rate of 75 mL's an hour. No angina no palpitations. No altered mentation. She is on Dilaudid for pain control in addition to no cough. Review of Systems Constitutional: Reports fatigue, Denies anorexia, Denies fever, Denies poor appetite, Denies weakness Ears, nose, mouth and throat: Denies dental pain, Denies dysphagia, Denies headache, Denies nasal congestion, Denies nasal discharge, Denies vertigo Cardiovascular: Denies chest pain, Denies edema, Denies leg edema, Denies lightheadedness, Denies syncope Respiratory: Reports cough, Reports cough with sputum, Reports dyspnea, Denies excessive sputum, Denies hemoptysis, Denies home oxygen Gastrointestinal: Denies abdominal pain, Denies loss of appetite, Denies melena, Denies vomiting Genitourinary: Denies dysuria, Denies hematuria Musculoskeletal: Reports gait dysfunction, Denies muscle weakness, Denies myalgias Integumentary: Reports wounds Neurological: Denies aphasia, Denies change in speech, Denies numbness, Denies seizures, Denies weakness Psychiatric: Denies anxiety, Denies depression Past Medical History Past Medical History: COPD, Fibromyalgia, GERD/Reflux, Musculoskeletal Disorder, Osteoarthritis (OA), Pneumonia Additional Past Medical History / Comment(s): Degenerative disc disease of the spine, restless leg syndrome, orthotic for left foot, hx of 2 left foot fractures, insomnia, ? hernia, states having bloating and gas. Hx fracture L-5. Ephysemia. Hx bronchitis and pneumomia, last in Sep 2018. History of Any Multi-Drug Resistant Organisms: None Reported Past Surgical History: Back Surgery, Breast Surgery, Orthopedic Surgery Additional Past Surgical History / Comment(s): Left knee surgery, bilateral breast lumpectomy, endoscopy, T12 surgery. Past Anesthesia/Blood Transfusion Reactions: Postoperative Nausea & Vomiting (PONV) Additional Past Anesthesia/Blood Transfusion Reaction / Comment(s): Children have PONV. Past Psychological History: Anxiety, Depression Smoking Status: Current every day smoker Past Alcohol Use History: Rare Additional Past Alcohol Use History / Comment(s): Smokes 1ppd, smoking since 14 years old. She denies any illicit drug use or alcohol use. Past Drug Use History: None Reported - Past Family History Mother Family Medical History: No Reported History Additional Family Medical History / Comment(s): Mother at age 68 from upper GI bleed. Father Additional Family Medical History / Comment(s): Father at young age from gunshot wound. Sister(s) Additional Family Medical History / Comment(s): Patient has 2 sisters and one has a pacemaker. Patient does not have any brothers. Patient has 2 sons and 3 daughters. One has H. pylori. Otherwise no major medical problems. Medications and Allergies Home Medications Medication Instructions Recorded Confirmed Type DULoxetine HCL [Cymbalta] 30 mg PO QAM 03/19/17 04/27/19 History DULoxetine HCL [Cymbalta] 60 mg PO QAM 03/19/17 04/27/19 History Acetaminophen Tab [Tylenol] 650 mg PO Q4H PRN 04/11/18 04/27/19 History Albuterol Inhaler [Ventolin Hfa 1 - 2 puff INHALATION RT-Q6H PRN 04/11/18 04/27/19 History Inhaler] Budesonide/Formoterol Fumarate 2 puff INHALATION RT-BID 04/11/18 04/27/19 History [Symbicort 160-4.5 Mcg Inhaler] Montelukast [Singulair] 10 mg PO HS 04/11/18 04/27/19 History rOPINIRole HCL [Requip] 0.75 mg PO HS 04/11/18 04/27/19 History Ipratropium-Albuterol Nebulize 3 ml INHALATION RT-TID #90 04/13/18 04/27/19 Rx [Duoneb 0.5 mg-3 mg/3 ml Soln] ampul.neb Meloxicam [Mobic] 15 mg PO DAILY 09/02/18 04/27/19 History oxyCODONE-APAP 7.5-325MG [Percocet 1 tab PO BID PRN 09/02/18 04/27/19 History 7.5-325 mg] Eszopiclone [Lunesta] 1 mg PO HS PRN 09/27/18 04/27/19 History Gabapentin [Neurontin] 300 mg PO TID 09/27/18 04/27/19 History Loratadine 10 mg PO DAILY 09/27/18 04/27/19 History Omeprazole 40 mg PO QAM 12/06/18 04/27/19 History Oxybutynin ER [Ditropan Xl] 15 mg PO DAILY 12/06/18 04/27/19 History Cyclobenzaprine [Flexeril] 10 mg PO BID 04/26/19 04/27/19 History Allergies Allergy/AdvReac Type Severity Reaction Status Date / Time No Known Allergies Allergy Verified 04/27/19 16:18 Physical Exam Vitals: Vital Signs Temp Pulse Pulse Pulse Resp BP Pulse Ox 04/28/19 12:45 108 H 04/28/19 12:35 108 H 04/28/19 11:00 94 L 04/28/19 07:40 18 04/28/19 07:03 123 H 04/28/19 07:00 100.6 F H 123 H 18 128/80 91 L 04/28/19 06:54 93 L 04/28/19 06:53 114 H 04/28/19 06:39 118 H 127/74 91 L 04/28/19 06:30 89 L 04/28/19 06:25 100.3 F H 129 H 77 L 04/28/19 03:23 17 04/28/19 01:15 98.8 F 95 14 116/75 92 L 04/28/19 00:35 16 04/27/19 20:13 84 04/27/19 20:00 88 04/27/19 19:58 105 H 18 115/69 95 04/27/19 18:58 93 18 125/80 97 04/27/19 18:43 101 H 18 122/84 90 L 04/27/19 18:28 98 18 120/70 04/27/19 18:13 104 H 18 121/86 96 04/27/19 17:43 106 H 18 119/82 88 L 04/27/19 17:28 112 H 18 125/70 04/27/19 17:03 110 H 18 122/71 95 04/27/19 16:46 111 H 20 122/61 95 04/27/19 16:30 105 H 20 113/67 95 04/27/19 16:18 107 H 20 132/71 95 04/27/19 16:08 97.6 F 107 H 20 134/69 95 Intake and Output 04/28/19 04/28/19 04/28/19 06:59 14:59 22:59 Intake Total 675 Output Total 300 Balance 375 Intake: Intake, IV Titration 675 Amount Sodium Chloride 0.9% 1, 675 000 ml @ 75 mls/hr IV . [id number] [facility] Rx#:[id number] Output: Urine 300 Other: Voiding Method Indwelling Catheter Gen. appearance, comfortable in mild degree of distress mainly related to her back pain. The patient is laying down on her left lateral side. She is awake and alert and she is communicating and following questions and answers without any major difficulties. No signs of any respiratory distress or use of excessive muscle breathing. Head exam was generally normal. There was no scleral icterus or corneal arcus. Mucous membranes were moist. Neck was supple and without jugular venous distension, thyromegaly, or carotid bruits. Carotids were easily palpable bilaterally. There was no adenopathy. Lungs sounds are diminished bilaterally along with some few scattered rhonchi. No wheezes. Cardiac exam revealed the PMI to be normally situated and sized. The rhythm was regular and no extrasystoles were noted during several minutes of auscultation. The first and second heart sounds were normal and physiologic splitting of the second heart sound was noted. There were no murmurs, rubs, clicks, or gallops. Abdominal exam revealed normal bowel sounds. The abdomen was soft, non-tender, and without masses, organomegaly, or appreciable enlargement of the abdominal aorta. Examination of the extremities revealed easily palpable radial, femoral and pedal pulses. There was no cyanosis, clubbing or edema. Examination of the skin revealed no evidence of significant rashes, suspicious appearing nevi or other concerning lesions. Surgical wound site over the back is dry clean and intact Neurologically the patient is awake and alert and there is no focal neurological deficits. Results - Laboratory Findings CBC and BMP: 04/28/19 07:20 04/28/19 07:20 Abnormal lab findings: Abnormal Labs 04/28/19 04/28/19 07:20 07:20 Hgb 11.2 L Neutrophils # 9.1 H Sodium 134 L Glucose 114 H - Diagnostic Findings Chest x-ray: image reviewed Assessment and Plan Plan: 1 acute dyspnea with hypoxic respiratory failure likely secondary to a right lower lobe pneumonia, consider aspiration. The patient is postop day #1. The patient became acutely ill this morning where she became hypoxic tachycardic and she had a fever and there is an early infiltration of the right lung. She has underlying COPD 2 COPD moderate to severe with an FEV1 of 61% of predicted at baseline 3 chronic smoker 4 chronic back pain and the patient is post laminectomy and decompression of the L4-L5 and L5-S1 spine. 5 restless leg syndrome 6 fibromyalgia 7 depression Plan Put the patient IV Zosyn covering for any aspiration pneumonia. Repeat chest x- ray in the morning. Continue Symbicort. DuoNeb nebulized treatments around the clock. Monitor the white cell count. Monitor fever pattern. Dr. Cardozo is somewhat improved. On 6l of oxygen by his cannula the patient is producing a pulse ox of 94%. We'll wean off the oxygen flow to maintain a saturation above 90%. Encouraged use of incentive spirometer. We'll continue to follow
[2019-04-28] MEDS: PIPERACILLIN-TAZOBACTAM 3.375 GM in SODIUM CHLORIDE 0.9% 100 ML IVPB SCH (16:01)
[2019-04-28] MEDS ORDERED: diphenhydrAMINE 25 MG CAP PO STA (16:46)
[2019-04-28] MEDS: MONTELUKAST 10 MG TAB PO SCH (21:55)
[2019-04-28] MEDS: oxyCODONE-APAP 7.5-325MG 1 EACH TAB PO PRN (21:56)
[2019-04-28] MEDS: SODIUM CHLORIDE 0.9% 1,000 ML IV SCH (22:10)
[2019-04-29] MEDS: PIPERACILLIN-TAZOBACTAM 3.375 GM in SODIUM CHLORIDE 0.9% 100 ML IVPB SCH ×3 (00:06→17:17)
[2019-04-29] MEDS: HYDROcodone/APAP 5-325MG 1 EACH TAB PO PRN ×2 (00:14→04:31)
[2019-04-29] MEDS: HYDROmorphone 1 MG/ML 1 ML SYRINGE IVP PRN ×6 (02:19→21:35)
[2019-04-29] MEDS: LACTATED RINGERS 1,000 ML IV SCH (04:10)
[2019-04-29] MEDS: SODIUM CHLORIDE 0.9% 1,000 ML IV SCH ×2 (05:40→23:02)
[2019-04-29] MEDS: IPRATROPIUM-ALBUTEROL 3 ML NEB INHALATION SCH ×3 (07:57→19:54)
[2019-04-29] MEDS: SYMBICORT 160-4.5 MCG INHALER INHALATION SCH ×2 (07:57→19:54)
[2019-04-29] MEDS: SENNOSIDES-DOCUSATE SODIUM 1 EACH TAB PO SCH (08:50)
[2019-04-29] MEDS: DULoxetine HCL 30 MG CAPSULE.DR PO SCH (08:50)
[2019-04-29] MEDS: CYCLOBENZAPRINE 10 MG TAB PO SCH ×2 (08:50→21:35)
[2019-04-29] MEDS: PANTOPRAZOLE 40 MG TABLET PO SCH (08:50)
[2019-04-29] MEDS: OXYBUTYNIN 15 MG TAB.ER.24 PO SCH (08:50)
[2019-04-29] MEDS: LORATADINE 10 MG TAB PO SCH (08:50)
[2019-04-29] MEDS: NICOTINE 21MG/24HR PATCH TRANSDERM SCH (08:51)
--- NOTE | 2019-04-29 09:01 | P.PN ---
Progress Note - Text Progress Note Date: 04/29/19 Orthopedic Spine Patient is a pleasant 53-year-old female who is seen and examined at the bedside following posterior lateral decompression and fusion performed Thursday. Patient states they are doing ok postsurgically. She continues to have significant pain at the surgical sites. She is not currently planing of any lower extremity radiculopathy symptoms. She continues to move slowly postoperatively. She is able to stand at the bedside but has not worked increase her ambulation. Her Art catheter remains intact. Patient is known have COPD with reduced FEV1. She became tachycardic and hypoxic yesterday. She was seen and examined by pulmonology. X-ray imaging showed possible right lobe pneumonia. Patient has been started on IV Zosyn with plans for repeat chest x- ray this morning. Patient is also continuing on 6 L of O2 cannula. Currently does not complain of nausea, vomiting, fever, or chills. Patient states pain has been adequately controlled. Patient is eating and voiding freely without difficulty. She is known to take oxycodone 7.5 mg/325 mg in the outpatient setting prior to surgical intervention as prescribed by another provider. Nursing states patient has been receiving too much acetaminophen she has been taking Percocet 7.5 mg/325 mg in [place] 5 mg/325 mg. Patient has a medical history which includes COPD and chronic smoker. Physical Exam Lumbar Fusion: Status post surgical day number 2 Patient is awake, alert, and oriented 3 Vital signs stable Good chest excursion with deep inspiration and expiration Dorsiflexion, plantarflexion, and extensor hallucis longus positive sustained bilaterally No signs or symptoms of DVT; no calf pain; pneumatic cuffs intact bilateral lower extremities Dressing is removed during physical examination reapplied with nonstick Telfa and Tegaderm. Incision sites are clean, dry, and intact; no erythema, purulence, or signs of infection Art catheter is intact Neurovascularly intact bilaterally lower extremities Assessment: Status post L4-5 and L5-S1 minimally invasive posterior lateral decompression and fusion with transforaminal lumbar interbody fusion Acute dyspnea with hypoxic respiratory failure likely secondary to right lower lobe pneumonia COPD Chronic smoker Plan: 1. Ambulate as tolerated; work with Physical Therapy to increase mobilization; we discussed the importance of working with physical therapy to increase her mobility both in regards to her recovery postoperatively following lumbar fusion along with her lung function and recent acute dyspnea with hypoxic respiratory failure likely secondary to right lower lobe pneumonia; we will plan to discontinue Art catheter once patient is able to increase mobilization 2. Continue pain control with IV and oral medications; patient has been receivi ng too much acetaminophen. We will plan to discontinue [place] 5 mg/325 mg 1-2 tab every 4 hours and will add [place] 10 mg/325 mg 1 tab every 4 hours. Patient is prescribed Percocet 7.5 mg/325 mg in the outpatient setting. We'll plan have her continue taking this medication as prescribed by her other medical prescribe her. Will not plan to prescribe Percocet at discharge. 3. Dressing changed to Telfa and Tegaderm 4. Medical management and pulmonology can continue to manage patient for patient's other medical diagnoses including acute dyspnea with hypoxic respiratory failure likely secondary to right lower lobe pneumonia; she is encouraged to use her incentive spirometer COPD 5. We will continue to follow the patient closely; if patient is able to improve over the next couple days, we will plan for discharge most likely home 6. Patient can follow-up with Xiang Hernandez PA-C or Dr. Jakob Lozano at [facility] in 2-3 weeks following discharge
[2019-04-29] MEDS: HYDROcodone/APAP 10-325MG 1 EACH TAB PO PRN ×4 (10:08→22:48)
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
--- NOTE | 2019-04-29 14:09 | P.PN ---
Subjective Progress Note Date: 04/29/19 Principal diagnosis: Dyspnea secondary to right lower lobe pneumonia possible aspiration This is a 53-year-old female patient with developed shortness of breath following spine surgery. The patient is known to me as the patient has COPD with a baseline FEV1 of 64% of predicted and she has been maintained on Symbicort on outpatient basis. She is a chronic smoker. She also has other comorbidities including fibromyalgia, degenerative disc disease in the distal 6 syndrome. The patient underwent a laminectomy with decompression involving the L4-L5 and L5-S1 spine and this was done for chronic back pain. The patient was also having radiculopathy. Earlier this morning the patient became acutely short of breath. Heart rate was quite elevated above 100 and the patient became hypoxic and the patient was placed on 6 L of oxygen nasal cannula. Chest x-ray was done that showed an early right lower lobe pulmonary infiltration. Note that there is no reported history of aspiration at time of surgery or even postop. The patient was coughing out some yellowish sputum. Denied having any chest pain. Denied having any pleurisy or hemoptysis. She remained hemodynamically stable. She was producing adequate amount of urine output. Her renal function was stable with a creatinine of 0.6. [place] was attempted 0.6. The patient was using incentive spirometer although she was not using it aggressively. She had a temperature of 100.6. I saw the patient the bedside. I suspect a pneumonia and I started the patient IV Zosyn. She is hemodynamically stable and she is on normal saline at the rate of 75 mL's an hour. No angina no palpitations. No altered mentation. She is on Dilaudid for pain control in addition to no cough. The patient is seen today 04/29/2019 in follow-up on the regular medical floor. She is awake and alert in no acute distress. She is still having some complaints of surgical site pain. No worsening shortness of breath, cough or congestion. Maintaining O2 saturations in the mid 90s on 5 L high flow nasal cannula. She's afebrile. She remains on DuoNeb inhalations, Symbicort, antibiotics in the form of Zosyn. NicoDerm patch in place. Objective - Vital Signs Vital signs: Vital Signs Temp 98.3 F 04/29/19 08:12 Pulse 98 07/26/19 13:22 Resp 16 04/29/19 08:12 BP 119/68 04/29/19 08:12 Pulse Ox 93 L 04/29/19 08:12 Intake & Output 04/28/19 04/29/19 04/29/19 18:59 06:59 18:59 Intake Total 20 Output Total 600 300 150 Balance -600 -280 -150 Intake: Oral 20 Output: Urine 600 300 150 Other: Voiding Method Indwelling Catheter Indwelling Catheter Indwelling Catheter - Exam GENERAL EXAM: Alert, active, in no apparent distress. On 5 L nasal cannula HEAD: Normocephalic. EYES: Normal reaction of pupils, equal size. NOSE: Clear with pink turbinates. THROAT: No erythema or exudates. NECK: No masses, no JVD. CHEST: No chest wall deformity. LUNGS: Equal air entry with crackles in the right lung base. CVS: S1 and S2 normal with no audible murmur, regular rhythm. ABDOMEN: No hepatosplenomegaly, normal bowel sounds, no guarding or rigidity. SPINE: Surgical dressing clean dry and intact SKIN: No rashes CENTRAL NERVOUS SYSTEM: No focal deficits, tone is normal in all 4 extremities. EXTREMITIES: There is no peripheral edema. No clubbing, no cyanosis. Peripheral pulses are intact. - Labs CBC & Chem 7: 04/28/19 07:20 04/28/19 07:20 Assessment and Plan Assessment: Impression: 1 acute dyspnea with hypoxic respiratory failure likely secondary to a right lower lobe pneumonia, consider aspiration. The patient is postop day #2. The patient became acutely where she became hypoxic tachycardic and she had a fever and there is an early infiltration of the right lung. She has underlying COPD 2 COPD moderate to severe with an FEV1 of 61% of predicted at baseline 3 chronic smoker 4 chronic back pain and the patient is post laminectomy and decompression of the L4-L5 and L5-S1 spine. 5 restless leg syndrome 6 fibromyalgia 7 depression Plan The patient was seen and evaluated by Dr. Chang. We'll continue with the current treatment plan including DuoNeb inhalations, Symbicort, antibiotics in the form of Zosyn. Encouraged increased use of the incentive spirometer and cough and deep breathing exercises. Increase her activity as tolerated. Repeat a chest x-ray in the a.m. We'll continue to follow. I, the cosigning physician, performed a history & physical examination of the patient. Lungs sounds with crackles in the right posterior base. Maintaining good O2 saturations in the 90s on 5 L/m per nasal cannula. I discussed the assessment and plan of care with my nurse practitioner, Gavi Sultana. I attest to the above note as dictated by her.
[2019-04-29] MEDS: MONTELUKAST 10 MG TAB PO SCH (21:35)
[2019-04-30] MEDS: PIPERACILLIN-TAZOBACTAM 3.375 GM in SODIUM CHLORIDE 0.9% 100 ML IVPB SCH ×3 (00:06→16:18)
[2019-04-30] MEDS: HYDROmorphone 1 MG/ML 1 ML SYRINGE IVP PRN ×2 (00:48→04:13)
[2019-04-30] MEDS: LACTATED RINGERS 1,000 ML IV SCH (04:58)
[2019-04-30] MEDS: HYDROcodone/APAP 10-325MG 1 EACH TAB PO PRN ×4 (05:03→19:33)
--- NOTE | 2019-04-30 07:07 | XR ---
EXAMINATION TYPE: XR chest 1V portable DATE OF EXAM: 04/30/2019 HISTORY: Aspiration right lung. REFERENCE: Previous study dated 04/28/2019. FINDINGS: Heart is prominent. There is a stable pulmonary nodule at the right lung base. There are in terstitial changes. There are small, bilateral effusions. The overall appearance has not changed sign ificantly. IMPRESSION: 1. MILD CARDIOMEGALY. 2. WORSENING INTERSTITIAL CHANGE WHICH IS BECOMING MORE CONFLUENT ON THE LEFT AND MAY REPRESENT DEVEL OPING PNEUMONIA.
[2019-04-30] MEDS: IPRATROPIUM-ALBUTEROL 3 ML NEB INHALATION SCH ×3 (07:08→20:58)
[2019-04-30] MEDS: SYMBICORT 160-4.5 MCG INHALER INHALATION SCH ×2 (07:08→20:59)
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
[2019-04-30] MEDS: HYDROmorphone 0.5 MG/0.5 ML SYRINGE IVP PRN (07:48)
[2019-04-30] MEDS: PANTOPRAZOLE 40 MG TABLET PO SCH (07:50)
[2019-04-30] MEDS: OXYBUTYNIN 15 MG TAB.ER.24 PO SCH (07:50)
[2019-04-30] MEDS: SENNOSIDES-DOCUSATE SODIUM 1 EACH TAB PO SCH (07:50)
[2019-04-30] MEDS: DULoxetine HCL 30 MG CAPSULE.DR PO SCH (07:51)
[2019-04-30] MEDS: LORATADINE 10 MG TAB PO SCH (07:51)
[2019-04-30] MEDS: CYCLOBENZAPRINE 10 MG TAB PO SCH ×2 (07:51→21:56)
[2019-04-30] MEDS: NICOTINE 21MG/24HR PATCH TRANSDERM SCH (11:53)
[2019-04-30] MEDS: SODIUM CHLORIDE 0.9% 1,000 ML IV SCH (11:54)
--- NOTE | 2019-04-30 12:58 | P.PN ---
Subjective Progress Note Date: 04/30/19 Principal diagnosis: Right lower lobe pneumonia possible aspiration This is a 53-year-old female patient with developed shortness of breath following spine surgery. The patient is known to me as the patient has COPD with a baseline FEV1 of 64% of predicted and she has been maintained on Symbicort on outpatient basis. She is a chronic smoker. She also has other comorbidities including fibromyalgia, degenerative disc disease in the distal 6 syndrome. The patient underwent a laminectomy with decompression involving the L4-L5 and L5-S1 spine and this was done for chronic back pain. The patient was also having radiculopathy. Earlier this morning the patient became acutely short of breath. Heart rate was quite elevated above 100 and the patient became hypoxic and the patient was placed on 6 L of oxygen nasal cannula. Chest x-ray was done that showed an early right lower lobe pulmonary infiltration. Note that there is no reported history of aspiration at time of surgery or even postop. The patient was coughing out some yellowish sputum. Denied having any chest pain. Denied having any pleurisy or hemoptysis. She remained hemodynamically stable. She was producing adequate amount of urine output. Her renal function was stable with a creatinine of 0.6. [place] was attempted 0.6. The patient was using incentive spirometer although she was not using it aggressively. She had a temperature of 100.6. I saw the patient the bedside. I suspect a pneumonia and I started the patient IV Zosyn. She is hemodynamically stable and she is on normal saline at the rate of 75 mL's an hour. No angina no palpitations. No altered mentation. She is on Dilaudid for pain control in addition to no cough. The patient is seen today 04/29/2019 in follow-up on the regular medical floor. She is awake and alert in no acute distress. She is still having some compl aints of surgical site pain. No worsening shortness of breath, cough or congestion. Maintaining O2 saturations in the mid 90s on 5 L high flow nasal cannula. She's afebrile. She remains on DuoNeb inhalations, Symbicort, antibiotics in the form of Zosyn. NicoDerm patch in place. On 04/30/2019 patient seen in follow-up on medical surgical floor. She is awake and alert, in no acute distress, currently on 5 L of oxygen with a pulse ox of 95%, will Probably weaning this down further, she is afebrile, hemodynamically stable. No compaints of worsening shortness of breath chest pain, no hemopt ysis, today's chest x-ray has been reviewed showing some worsening of the interstitial changes in the left lung. We have been unable to collect a sputum culture. Patient has occasional cough with some yellowish sputum, patient is on Zosyn for antibiotic coverage, we'll try to obtain a sputum culture. Objective - Vital Signs Vital signs: Vital Signs Temp 97.5 F L 04/30/19 07:57 Pulse 100 04/30/19 07:57 Resp 18 04/30/19 07:57 BP 134/74 04/30/19 07:57 Pulse Ox 95 04/30/19 07:57 Intake & Output 04/29/19 04/30/19 04/30/19 18:59 06:59 18:59 Intake Total 100 480 Output Total 200 400 Balance -100 80 Intake: Oral 100 480 Output: Urine 200 400 Other: Voiding Method Indwelling Catheter Indwelling Catheter - Exam GENERAL EXAM: Alert, pleasant, 53-year-old white female, on 5 L of oxygen comfortable in no apparent distress. HEAD: Normocephalic/atraumatic. EYES: Normal reaction of pupils, equal size. Conjunctiva pink, sclera white. NOSE: Clear with pink turbinates. THROAT: No erythema or exudates. NECK: No masses, no JVD, no thyroid enlargement, no adenopathy. CHEST: No chest wall deformity. Symmetrical expansion. LUNGS: Equal air entry with some crackles in the right base CVS: Regular rate and rhythm, normal S1 and S2, no gallops, no murmurs, no rubs ABDOMEN: Soft, nontender. No hepatosplenomegaly, normal bowel sounds, no guarding or rigidity. EXTREMITIES: No clubbing, no edema, no cyanosis, 2+ pulses and upper and lower extremities. MUSCULOSKELETAL: Muscle strength and tone normal. SPINE: No scoliosis or deformity SKIN: No rashes CENTRAL NERVOUS SYSTEM: Alert and oriented -3. No focal deficits, tone is nor mal in all 4 extremities. PSYCHIATRIC: Alert and oriented -3. Appropriate affect. Intact judgment and insight. - Labs CBC & Chem 7: 04/28/19 07:20 04/28/19 07:20 Assessment and Plan Plan: 1 acute dyspnea with hypoxic respiratory failure likely secondary to a right lower lobe pneumonia, consider aspiration. The patient is postop day #2. The patient became acutely where she became hypoxic tachycardic and she had a fever and there is an early infiltration of the right lung. She has underlying COPD 2 COPD moderate to severe with an FEV1 of 61% of predicted at baseline 3 chronic smoker 4 chronic back pain and the patient is post laminectomy and decompression of the L4-L5 and L5-S1 spine. 5 restless leg syndrome 6 fibromyalgia 7 depression Plan: We'll continue current medical treatments, nebulized bronchodilators, Symbicort and antibiotics, will obtain sputum culture, patient is been afebrile, clinically she seems to be improving, encourage deep breathing and coughing, encouraged the patient to get up out of bed and sit up in the chair. Follow-up chest x-ray has been reviewed showing some worsening of the interstitial changes on the left, but oxygenation has actually improved, will wean oxygen, provide incentive spirometer, I performed a history & physical examination of the patient and discussed their management with my nurse practitioner, Ev Ellis. I reviewed the nurse pr actitioner's note and agree with the documented findings and plan of care. Lung sounds are positive for crackles at the right lung base. The findings and the impression was discussed with the patient. I attest to the documentation by the nurse practitioner. Time with Patient: Less than 30
[2019-04-30] MEDS ORDERED: ALPRAZolam 0.5 MG TAB PO STA (15:14)
[2019-04-30] MEDS: MONTELUKAST 10 MG TAB PO SCH (21:55)
[2019-04-30] MEDS: TRIAMCINOLONE ACET 0.5% CREAM 15 GM TUBE TOPICAL SCH (21:56)
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
[2019-05-01] MEDS: ALPRAZolam 0.5 MG TAB PO PRN ×4 (00:02→23:43)
[2019-05-01] MEDS: HYDROcodone/APAP 10-325MG 1 EACH TAB PO PRN ×5 (00:02→20:51)
[2019-05-01] MEDS: PIPERACILLIN-TAZOBACTAM 3.375 GM in SODIUM CHLORIDE 0.9% 100 ML IVPB SCH ×4 (00:03→23:43)
[2019-05-01] MEDS: LACTATED RINGERS 1,000 ML IV SCH (01:53)
[2019-05-01] MEDS: SODIUM CHLORIDE 0.9% 1,000 ML IV SCH ×2 (01:53→14:22)
[2019-05-01] MEDS: CYCLOBENZAPRINE 10 MG TAB PO SCH ×2 (08:35→20:51)
[2019-05-01] MEDS: LORATADINE 10 MG TAB PO SCH (08:36)
[2019-05-01] MEDS: OXYBUTYNIN 15 MG TAB.ER.24 PO SCH (08:36)
[2019-05-01] MEDS: DULoxetine HCL 30 MG CAPSULE.DR PO SCH (08:36)
[2019-05-01] MEDS: SENNOSIDES-DOCUSATE SODIUM 1 EACH TAB PO SCH (08:36)
[2019-05-01] MEDS: PANTOPRAZOLE 40 MG TABLET PO SCH (08:36)
[2019-05-01 08:39] LABS: African American GFR (CKD) >90 (>60 ml/min/1.73 sqM); Anion Gap 9 mmol/L; Blood Urea Nitrogen 8 mg/dL (7-17); Calcium 8.2 mg/dL (8.4-10.2); Carbon Dioxide 22 mmol/L (22-30); Chloride 104 mmol/L (98-107); Glucose 93 mg/dL (74-99); Non-African American GFR(CKD) >90 (>60 ml/min/1.73 sqM); Sodium 135 mmol/L (137-145)
[2019-05-01] MEDS: TRIAMCINOLONE ACET 0.5% CREAM 15 GM TUBE TOPICAL SCH ×2 (08:39→20:51)
[2019-05-01] MEDS: SYMBICORT 160-4.5 MCG INHALER INHALATION SCH ×2 (08:40→19:48)
[2019-05-01] MEDS: IPRATROPIUM-ALBUTEROL 3 ML NEB INHALATION SCH ×3 (08:41→19:37)
[2019-05-01] MEDS: NICOTINE 21MG/24HR PATCH TRANSDERM SCH (08:42)
[2019-05-01 09:03] LABS: Basophils % (A) 0 %; Eosinophils # (A) 0.2 k/uL (0-0.7); Eosinophils % (A) 2 %; HCT 28.9 % (34.0-46.0); Lymphocytes # (A) 1.6 k/uL (1.0-4.8); Lymphocytes % (A) 18 %; MCH 28.9 pg (25.0-35.0); MCHC 33.3 g/dL (31.0-37.0); MCV 86.9 fL (80.0-100.0); Monocytes # (A) 0.4 k/uL (0-1.0); Monocytes % (A) 5 %; Neutrophils # (A) 6.2 k/uL (1.3-7.7); Neutrophils % (A) 73 %; Platelet Count 262 k/uL (150-450); RBC 3.33 m/uL (3.80-5.40); WBC 8.4 k/uL (3.8-10.6)
[2019-05-01 09:05] LABS: HGB 9.6 gm/dL (11.4-16.0)
[2019-05-01] MEDS: POTASSIUM CHLORIDE 10 MEQ in WATER FOR INJECTION 1 100ML.BAG IVPB SCH ×2 (10:07→13:35)
[2019-05-01] MEDS: POTASSIUM CHLORIDE ER 20 MEQ TAB.ER PO SCH ×3 (10:07→14:22)
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
--- NOTE | 2019-05-01 13:51 | P.PN ---
Subjective Progress Note Date: 05/01/19 This is a 53-year-old female patient with developed shortness of breath following spine surgery. The patient is known to me as the patient has COPD with a baseline FEV1 of 64% of predicted and she has been maintained on Symbicort on outpatient basis. She is a chronic smoker. She also has other comorbidities including fibromyalgia, degenerative disc disease in the distal 6 syndrome. The patient underwent a laminectomy with decompression involving the L4-L5 and L5-S1 spine and this was done for chronic back pain. The patient was also having radiculopathy. Earlier this morning the patient became acutely short of breath. Heart rate was quite elevated above 100 and the patient became hypoxic and the patient was placed on 6 L of oxygen nasal cannula. Chest x-ray was done that showed an early right lower lobe pulmonary infiltration. Note that there is no reported history of aspiration at time of surgery or even postop. The patient was coughing out some yellowish sputum. Denied having any chest pain. Denied having any pleurisy or hemoptysis. She remained hemodynamically stable. She was producing adequate amount of urine output. Her renal function was stable with a creatinine of 0.6. Lester was attempted 0.6. The patient was using incentive spirometer although she was not using it aggressively. She had a temperature of 100.6. I saw the patient the bedside. I suspect a pneumonia and I started the patient IV Zosyn. She is hemodynamically stable and she is on normal saline at the rate of 75 mL's an hour. No angina no palpitations. No altered mentation. She is on Dilaudid for pain control in addition to no cough. The patient is seen today 04/29/2019 in follow-up on the regular medical floor. She is awake and alert in no acute distress. She is still having some complaints of surgical site pain. No worsening shortness of breath, cough or congestion. Maintaining O2 saturations in the mid 90s on 5 L high flow nasal cannula. She's afebrile. She remains on DuoNeb inhalations, Symbicort, antibiotics in the form of Zosyn. NicoDerm patch in place. On 04/30/2019 patient seen in follow-up on medical surgical floor. She is awake and alert, in no acute distress, currently on 5 L of oxygen with a pulse ox of 95%, will Probably weaning this down further, she is afebrile, hemodynamically stable. No compaints of worsening shortness of breath chest pain, no hemoptysis, today's chest x-ray has been reviewed showing some worsening of the interstitial changes in the left lung. We have been unable to collect a sputum culture. Patient has occasional cough with some yellowish sputum, patient is on Zosyn for antibiotic coverage, we'll try to obtain a sputum culture. On 04/23/2019, the patient is on room air oxygen maintaining a pulse ox above 90%. Limited cough. No significant chest pain. No fever or chills. Back pain is still present and this is postsurgical in nature. She is ambulating. White cell count stable at 8.4. Hemoglobin was at 9.6. The patient has been on DuoNeb the right seems on the clock. The patient is on IV Zosyn. The patient has adequate pain control with IV Dilaudid and oral [place]. Objective - Vital Signs Vital signs: Vital Signs Temp 98.5 F 05/01/19 07:00 Pulse 100 05/01/19 07:00 Resp 16 05/01/19 08:00 BP 122/78 05/01/19 07:00 Pulse Ox 90 L 05/01/19 07:00 Intake & Output 04/30/19 05/01/19 05/01/19 18:59 06:59 18:59 Intake Total 1440 Output Total 1200 Balance -1200 1440 Intake: Intake, IV Titration 650 Amount Piperacillin-Tazobactam 3 100 .375 gm In Sodium Chloride 0.9% 100 ml @ 25 mls/hr IVPB Q8HR [facility] Rx# :[id number] Sodium Chloride 0.9% 1, 550 000 ml @ 75 mls/hr IV . [id number] [facility] Rx#:[id number] Oral 790 Output: Urine 1200 Uretheral (Art) 1200 Other: Voiding Method Indwelling Catheter Toilet # Voids 2 3 - Exam GENERAL EXAM: Alert, pleasant, 53-year-old white female, on room air oxygen the patient pulse ox is 90% HEAD: Normocephalic/atraumatic. EYES: Normal reaction of pupils, equal size. Conjunctiva pink, sclera white. NOSE: Clear with pink turbinates. THROAT: No erythema or exudates. NECK: No masses, no JVD, no thyroid enlargement, no adenopathy. CHEST: No chest wall deformity. Symmetrical expansion. LUNGS: Equal air entry with some crackles in the right base CVS: Regular rate and rhythm, normal S1 and S2, no gallops, no murmurs, no rubs ABDOMEN: Soft, nontender. No hepatosplenomegaly, normal bowel sounds, no guarding or rigidity. EXTREMITIES: No clubbing, no edema, no cyanosis, 2+ pulses and upper and lower extremities. MUSCULOSKELETAL: Muscle strength and tone normal. SPINE: No scoliosis or deformity SKIN: No rashes CENTRAL NERVOUS SYSTEM: Alert and oriented -3. No focal deficits, tone is normal in all 4 extremities. PSYCHIATRIC: Alert and oriented -3. Appropriate affect. Intact judgment and insight. - Labs CBC & Chem 7: 05/01/19 07:07 05/01/19 07:07 Labs: Abnormal Lab Results - Last 24 Hours (Table) 05/01/19 05/01/19 Range/Units 07:07 07:07 RBC 3.33 L (3.80-5.40) m/uL Hgb 9.6 L D (11.4-16.0) gm/dL Hct 28.9 L (34.0-46.0) % Sodium 135 L (137-145) mmol/L Potassium 3.0 L (3.5-5.1) mmol/L Calcium 8.2 L (8.4-10.2) mg/dL Assessment and Plan Plan: 1 acute dyspnea with hypoxic respiratory failure likely secondary to a right lower lobe pneumonia, consider aspiration. The patient is postop day #3 . The patient is improved considerably. Oxidation gradually improved. On room air oxygen the patient's pulse ox is up to 90%. She was treated with IV Zosyn. She is also on bronchodilators. 2 COPD moderate to severe with an FEV1 of 61% of predicted at baseline 3 chronic smoker 4 chronic back pain and the patient is post laminectomy and decompression of the L4-L5 and L5-S1 spine. 5 restless leg syndrome 6 fibromyalgia 7 depression Plan Doing well. May discharge home within the next 24 hours and oral Augmentin. Ambulates. Smoking cessation counseling. Nicotine patch. We'll follow. Also suggest covering the IV fluids to KVO.
[2019-05-01] MEDS ORDERED: POTASSIUM BICARBONATE/CIT AC 20 MEQ TABLET.EFF PO SCH (16:00)
--- NOTE | 2019-05-01 17:38 | CT ---
EXAMINATION TYPE: CT angio chest DATE OF EXAM: 05/01/2019 COMPARISON: Prior CT 04/11/2018 HISTORY: Pt not good historian as to reason for test. Is impatient for spondylolithesis. Hx COPD, ast hma. CT DLP: 227.1 mGycm Automated exposure control for dose reduction was used. CONTRAST: CTA scan of the thorax is performed with IV Contrast, patient injected with 100 mL of Isovue 370, pul monary embolism protocol. MIP images are created and reviewed. 3D reconstructed images are created on an independent workstation and reviewed. FINDINGS: LUNGS: The lungs are grossly stable, there is no interval change in the nodularity , there are calcif ied and noncalcified nodules present. Extensive emphysematous changes are present. There is small le ft effusion, bilateral dependent atelectatic changes.. The tracheobronchial tree is patent. AORTA: No additional significant abnormality is seen. MEDIASTINUM: There is satisfactory enhancement of the pulmonary artery and its branches, there is no CT evidence for pulmonary embolism. Hilar adenopathy has developed in the interval on the right, bord miriam on the left. Suspect there are subcarinal nodes present. There is some small amount of prevasc ular abnormal soft tissue appears more conspicuous Pulmonary artery is prominent, correlate for possi ble pulmonary artery hypertension. No pericardial effusion is seen. OTHER: No additional significant abnormality is seen. IMPRESSION: INTERVAL DEVELOPMENT OF MEDIASTINAL, HILAR ADENOPATHY. INTERVAL DEVELOPMENT OF A SMALL LEFT PLEURAL E FFUSION. THERE IS EXTENSIVE EMPHYSEMA. CORRELATE FOR PULMONARY ARTERY HYPERTENSION. OLD GRANULOMATOUS DISEASE.
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
[2019-05-01] MEDS: MONTELUKAST 10 MG TAB PO SCH (20:51)
[2019-05-01 22:41] LABS: ABG PCO2 27 mmHg (35-45); ABG PH 7.52 (7.35-7.45); Allen Test Performed? yes
[2019-05-01 22:42] LABS: ABG Base Excess -0.9 mmol/L; ABG HCO3 22 mmol/L (21-25); ABG PO2 52 mmHg (83-108); ABG TCO2 23 mmol/L (19-24)
[2019-05-02] MEDS: HYDROcodone/APAP 10-325MG 1 EACH TAB PO PRN ×2 (00:46→08:26)
[2019-05-02 04:11] VITALS: RESP 18
[2019-05-02] MEDS: LACTATED RINGERS 1,000 ML IV SCH (05:08)
[2019-05-02] MEDS: IPRATROPIUM-ALBUTEROL 3 ML NEB INHALATION SCH ×2 (07:08→13:32)
[2019-05-02] MEDS: SYMBICORT 160-4.5 MCG INHALER INHALATION SCH (07:08)
[2019-05-02 08:17] VITALS: BP 127/81; TEMP 98.5
[2019-05-02] MEDS: PIPERACILLIN-TAZOBACTAM 3.375 GM in SODIUM CHLORIDE 0.9% 100 ML IVPB SCH (08:25)
[2019-05-02] MEDS: PANTOPRAZOLE 40 MG TABLET PO SCH (08:25)
[2019-05-02] MEDS: CYCLOBENZAPRINE 10 MG TAB PO SCH (08:25)
[2019-05-02] MEDS: LORATADINE 10 MG TAB PO SCH (08:25)
[2019-05-02] MEDS: NICOTINE 21MG/24HR PATCH TRANSDERM SCH (08:26)
[2019-05-02] MEDS: SENNOSIDES-DOCUSATE SODIUM 1 EACH TAB PO SCH (08:26)
[2019-05-02] MEDS: TRIAMCINOLONE ACET 0.5% CREAM 15 GM TUBE TOPICAL SCH (08:27)
--- NOTE | 2019-05-02 08:30 | P.PN ---
Progress Note - Text Progress Note Date: 05/02/19 Orthopedic Spine: Patient is a pleasant 53-year-old female who is seen and examined at the bedside following posterior lateral decompression and fusion performed last Thursday. Patient states they are doing ok postsurgically. She has continued to improve over the weekend in terms of pain control and mobility. She does continue to have some pain at the surgical sites. She is not currently planing of any lower extremity radiculopathy symptoms. Patient was cleared for discharge from an orthopedic spine standpoint yesterday pending clearance by medicine and pulmonology. Nursing states patient should be able to be discharged home today as they're currently waiting for a home oxygen tank for the patient and antibiotics per pulmonology. She continues to be on Zosyn. Patient states she is ready for discharge home today. She is eating and voiding without d ifficulty. Patient has a medical history which includes COPD and chronic smoker. Physical Exam Lumbar Fusion: Status post surgical day number 5 Patient is awake, alert, and oriented 3 Vital signs stable Good chest excursion with deep inspiration and expiration Dorsiflexion, plantarflexion, and extensor hallucis longus positive sustained bilaterally No signs or symptoms of DVT; no calf pain; pneumatic cuffs not currently intact bilateral lower extremities Nonstick Telfa and Tegaderm dressing remains intact Incision sites are clean, dry, and intact; no erythema, purulence, or signs of infection Art catheter has been discontinued Neurovascularly intact bilaterally lower extremities Assessment: Status post L4-5 and L5-S1 minimally invasive posterior lateral decompression and fusion with transforaminal lumbar interbody fusion Acute dyspnea with hypoxic respiratory failure likely secondary to right lower lobe pneumonia COPD Chronic smoker Plan: 1. Ambulate as tolerated; work with Physical Therapy to increase mobilization 2. Continue pain control with IV and oral medications; Patient is prescribed Percocet 7.5 mg/325 mg in the outpatient setting. We'll plan have her continue taking this medication as prescribed by her other medical prescribe her. Will not plan to prescribe Percocet at discharge. She has been given a prescription for [place] 10 mg/325 mg and Xanax 0.5 mg at discharge. 3. Dressing has remained intact with Telfa and Tegaderm; patient may remove dressing and may shower with that a dressing intact at this time 4. Medical management and pulmonology can continue to manage patient for patient's other medical diagnoses including acute dyspnea with hypoxic respiratory failure likely secondary to right lower lobe pneumonia; patient has been cleared for discharge from an orthopedic spine standpoint pending clearance by medicine and pulmonology 5. We will continue to follow the patient closely; if patient is able to be cleared from a medical and pulmonology standpoint, patient will most likely discharge home today 6. Patient can follow-up with Xiang Hernandez PA-C or Dr. Jakob Lozano at [facility] in 2-3 weeks following discharge
[2019-05-02] MEDS: OXYBUTYNIN 15 MG TAB.ER.24 PO SCH (09:30)
[2019-05-02] MEDS: DULoxetine HCL 30 MG CAPSULE.DR PO SCH (09:30)
[2019-05-02 12:01] LABS: African American GFR (CKD) >90 (>60 ml/min/1.73 sqM); Anion Gap 8 mmol/L; Blood Urea Nitrogen 9 mg/dL (7-17); Calcium 8.4 mg/dL (8.4-10.2); Carbon Dioxide 22 mmol/L (22-30); Chloride 105 mmol/L (98-107); Glucose 96 mg/dL (74-99); Non-African American GFR(CKD) >90 (>60 ml/min/1.73 sqM); Potassium 3.9 mmol/L (3.5-5.1); Sodium 135 mmol/L (137-145)
[2019-05-02 12:04] LABS: Basophils % (A) 1 %; Eosinophils # (A) 0.2 k/uL (0-0.7); Eosinophils % (A) 4 %; HGB 9.8 gm/dL (11.4-16.0); Lymphocytes # (A) 1.3 k/uL (1.0-4.8); Lymphocytes % (A) 19 %; MCH 29.2 pg (25.0-35.0); MCHC 32.7 g/dL (31.0-37.0); MCV 89.3 fL (80.0-100.0); Mean Platelet Volume 7.9; Monocytes # (A) 0.3 k/uL (0-1.0); Monocytes % (A) 4 %; Neutrophils # (A) 4.7 k/uL (1.3-7.7); Neutrophils % (A) 71 %; Platelet Count 299 k/uL (150-450); RBC 3.37 m/uL (3.80-5.40); RDW 14.4 % (11.5-15.5); WBC 6.6 k/uL (3.8-10.6)
--- NOTE | 2019-05-02 13:21 | P.PN ---
Subjective Progress Note Date: 05/02/19 Principal diagnosis: Right lower lobe pneumonia possible aspiration This is a 53-year-old female patient with developed shortness of breath following spine surgery. The patient is known to me as the patient has COPD with a baseline FEV1 of 64% of predicted and she has been maintained on Symbicort on outpatient basis. She is a chronic smoker. She also has other comorbidities including fibromyalgia, degenerative disc disease in the distal 6 syndrome. The patient underwent a laminectomy with decompression involving the L4-L5 and L5-S1 spine and this was done for chronic back pain. The patient was also having radiculopathy. Earlier this morning the patient became acutely short of breath. Heart rate was quite elevated above 100 and the patient became hypoxic and the patient was placed on 6 L of oxygen nasal cannula. Chest x-ray was done that showed an early right lower lobe pulmonary infiltration. Note that there is no reported history of aspiration at time of surgery or even postop. The patient was coughing out some yellowish sputum. Denied having any chest pain. Denied having any pleurisy or hemoptysis. She remained hemodynamically stable. She was producing adequate amount of urine output. Her renal function was stable with a creatinine of 0.6. [place] was attempted 0.6. The patient was using incentive spirometer although she was not using it aggressively. She had a temperature of 100.6. I saw the patient the bedside. I suspect a pneumonia and I started the patient IV Zosyn. She is hemodynamically stable and she is on normal saline at the rate of 75 mL's an hour. No angina no palpitations. No altered mentation. She is on Dilaudid for pain control in addition to no cough. The patient is seen today 04/29/2019 in follow-up on the regular medical floor. She is awake and alert in no acute distress. She is still having some compl aints of surgical site pain. No worsening shortness of breath, cough or congestion. Maintaining O2 saturations in the mid 90s on 5 L high flow nasal cannula. She's afebrile. She remains on DuoNeb inhalations, Symbicort, antibiotics in the form of Zosyn. NicoDerm patch in place. On 04/30/2019 patient seen in follow-up on medical surgical floor. She is awake and alert, in no acute distress, currently on 5 L of oxygen with a pulse ox of 95%, will Probably weaning this down further, she is afebrile, hemodynamically stable. No compaints of worsening shortness of breath chest pain, no hemopt ysis, today's chest x-ray has been reviewed showing some worsening of the interstitial changes in the left lung. We have been unable to collect a sputum culture. Patient has occasional cough with some yellowish sputum, patient is on Zosyn for antibiotic coverage, we'll try to obtain a sputum culture. On 05/02/2019 patient seen in follow-up on medical surgical floor. She seems lethargic this morning, but arousable, yesterday she had episode of hypoxemia, a blood gas was obtained which showed metabolic alkalosis with hypoxemic respiratory failure, today she is on 4 L of oxygen and the pulse ox of 89-90%, she is afebrile, hemodynamically stable, CT chest showed no evidence of pulmonary embolism, and showed some mediastinal and hilar adenopathy and a small left pleural effusion on a background of emphysema. Her incentive spirometry effort is 500-750, her pain is relatively well controlled with oral medications, patient has not received any Dilaudid in last 48 hours. She seems quite drowsy this morning, but apparently through the day she became more awake, she is sitting up in the chair, no acute distress, home oxygen assessment is in progress, and discharged home is pending Objective - Vital Signs Vital signs: Vital Signs Temp 98.5 F 05/02/19 08:00 Pulse 97 05/02/19 08:00 Resp 18 05/02/19 08:10 BP 127/81 05/02/19 08:00 Pulse Ox 90 L 05/02/19 11:20 Intake & Output 05/01/19 05/02/19 05/02/19 18:59 06:59 18:59 Intake Total 340 1230 300 Balance 340 1230 300 Intake: Intake, IV Titration 340 150 Amount Piperacillin-Tazobactam 3 100 100 .375 gm In Sodium Chloride 0.9% 100 ml @ 25 mls/hr IVPB Q8HR [facility] Rx# :[id number] Potassium Chloride 10 meq 200 In Water For Injection 1 100ml.bag @ 100 mls/hr IVPB Q1H [facility] Rx#: [id number] Sodium Chloride 0.9% 1, 40 50 000 ml @ 5 mls/hr IV . Q24H [facility] Rx#:[id number] Oral 1080 300 Other: Voiding Method Toilet Toilet # Voids 2 2 - Exam GENERAL EXAM: Lethargic but arousable 53-year-old white female, on 4 L of oxygen comfortable in no apparent distress. HEAD: Normocephalic/atraumatic. EYES: Normal reaction of pupils, equal size. Conjunctiva pink, sclera white. NOSE: Clear with pink turbinates. THROAT: No erythema or exudates. NECK: No masses, no JVD, no thyroid enlargement, no adenopathy. CHEST: No chest wall deformity. Symmetrical expansion. LUNGS: Equal air entry with some crackles at bilateral bases CVS: Regular rate and rhythm, normal S1 and S2, no gallops, no murmurs, no rubs ABDOMEN: Soft, nontender. No hepatosplenomegaly, normal bowel sounds, no guard ing or rigidity. EXTREMITIES: No clubbing, no edema, no cyanosis, 2+ pulses and upper and lower extremities. MUSCULOSKELETAL: Muscle strength and tone normal. SPINE: No scoliosis or deformity SKIN: No rashes CENTRAL NERVOUS SYSTEM: Alert and oriented -3. No focal deficits, tone is normal in all 4 extremities. PSYCHIATRIC: Alert and oriented -3. Appropriate affect. Intact judgment and insight. - Labs CBC & Chem 7: 05/02/19 11:15 05/02/19 11:15 Labs: Abnormal Lab Results - Last 24 Hours (Table) 05/01/19 05/02/19 05/02/19 Range/Units 16:00 11:15 11:15 RBC 3.37 L (3.80-5.40) m/uL Hgb 9.8 L (11.4-16.0) gm/dL Hct 30.0 L (34.0-46.0) % ABG pH 7.52 H (7.35-7.45) ABG pCO2 27 L (35-45) mmHg ABG pO2 52 L* (83-108) mmHg ABG O2 Saturation 90.0 L (94-97) % Sodium 135 L (137-145) mmol/L Assessment and Plan Plan: 1 acute dyspnea with hypoxic respiratory failure likely secondary to a right lower lobe pneumonia, consider aspiration. The patient is postop day #2. The patient became acutely where she became hypoxic tachycardic and she had a fever and there is an early infiltration of the right lung. She has underlying COPD 2 COPD moderate to severe with an FEV1 of 61% of predicted at baseline 3 chronic smoker 4 chronic back pain and the patient is post laminectomy and decompression of the L4-L5 and L5-S1 spine. 5 restless leg syndrome 6 fibromyalgia 7 depression Plan: Patient was drowsy this morning, but apparently as the day went on she is more awake, she is in no acute distress, CTA chest showed no evidence of pulmonary embolism, it showed some interval development of mediastinal hilar adenopathy, which will be followed on outpatient basis, small left pleural effusion, no acute findings. Clinically patient is stable, home oxygen assessment did qualify the patient for home oxygen, patient needs outpatient follow-up, she can complete outpatient course of oral Augmentin, follow up with Dr. Chang in the office in 7-10 days. I performed a history & physical examination of the patient and discussed their management with my nurse practitioner, Ev Ellis. I reviewed the nurse practitioner's note and agree with the documented findings and plan of care. Lung sounds are positive for crackles at the right lung base. The findings and the impression was discussed with the patient. I attest to the documentation by the nurse practitioner. Time with Patient: Less than 30
[2019-05-02 13:44] VITALS: PULSE 104
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
== END 2019-05-02 14:23 | disposition home or self-care (01) | DRG 453 ==
LOC: 2ORMAIN 04-27 10:01 → 4SSUR 04-27 16:38
PROVIDERS: ADMIT Orthopaedic Surgery Orthopaedic Surgery of the Spine; ATTEND Orthopaedic Surgery Orthopaedic Surgery of the Spine
PROC: 0SG00AJ Fusion of Lumbar Vertebral Joint with Interbody Fusion Device, Posterior Approach, Anterior Column, Open Approach (ICD-10-PCS; principal; 2019-04-27 12:30)
PROC: 07DS3ZZ Extraction of Vertebral Bone Marrow, Percutaneous Approach (ICD-10-PCS; principal; 2019-04-27 12:30)
PROC: 0ST40ZZ Resection of Lumbosacral Disc, Open Approach (ICD-10-PCS; principal; 2019-04-27 12:30)
PROC: 0SG3071 Fusion of Lumbosacral Joint with Autologous Tissue Substitute, Posterior Approach, Posterior Column, Open Approach (ICD-10-PCS; principal; 2019-04-27 12:30)
PROC: 0SG30AJ Fusion of Lumbosacral Joint with Interbody Fusion Device, Posterior Approach, Anterior Column, Open Approach (ICD-10-PCS; principal; 2019-04-27 12:30)
PROC: 0SG0071 Fusion of Lumbar Vertebral Joint with Autologous Tissue Substitute, Posterior Approach, Posterior Column, Open Approach (ICD-10-PCS; principal; 2019-04-27 12:30)
PROC: 0ST20ZZ Resection of Lumbar Vertebral Disc, Open Approach (ICD-10-PCS; principal; 2019-04-27 12:30)
DX: M48.36 Traumatic spondylopathy, lumbar region (principal); J96.01 Acute respiratory failure with hypoxia; J69.0 Pneumonitis due to inhalation of food and vomit; E87.3 Alkalosis; M48.37 Traumatic spondylopathy, lumbosacral region; F32.9 Major depressive disorder, single episode, unspecified; F17.200 Nicotine dependence, unspecified, uncomplicated; G25.81 Restless legs syndrome; G89.29 Other chronic pain; J44.9 Chronic obstructive pulmonary disease, unspecified; K21.9 Gastro-esophageal reflux disease without esophagitis; M79.7 Fibromyalgia; F41.9 Anxiety disorder, unspecified; M19.90 Unspecified osteoarthritis, unspecified site; N32.81 Overactive bladder; R23.8 Other skin changes; V89.2XXS Person injured in unspecified motor-vehicle accident, traffic, sequela; Z79.1 Long term (current) use of non-steroidal anti-inflammatories (NSAID); Z79.51 Long term (current) use of inhaled steroids; Z79.899 Other long term (current) drug therapy; Z87.01 Personal history of pneumonia (recurrent); Z98.890 Other specified postprocedural states; Z83.79 Family history of other diseases of the digestive system; Z82.49 Family history of ischemic heart disease and other diseases of the circulatory system
CPT/HCPCS: 36600; 71045; 71275; 72100; 80048; 82805; 84132; 84484; 85025; 86850; 86891; 86900; 86901; 87070; 87205; 94640; 94760

== ENCOUNTER → 2019-04-21 | Outpatient (CLI) | payer OTHER, MEDICARE ==
[2019-04-21 16:10] LABS: Basophils # (A) 0.1 k/uL (0-0.2); Basophils % (A) 1 %; Eosinophils # (A) 0.3 k/uL (0-0.7); Eosinophils % (A) 2 %; HCT 39.7 % (34.0-46.0); HGB 13.4 gm/dL (11.4-16.0); Lymphocytes # (A) 2.8 k/uL (1.0-4.8); Lymphocytes % (A) 24 %; MCH 29.9 pg (25.0-35.0); MCHC 33.8 g/dL (31.0-37.0); MCV 88.4 fL (80.0-100.0); Monocytes # (A) 0.4 k/uL (0-1.0); Monocytes % (A) 4 %; Neutrophils % (A) 68 %; Platelet Count 308 k/uL (150-450); RBC 4.49 m/uL (3.80-5.40); RDW 14.3 % (11.5-15.5); WBC 11.8 k/uL (3.8-10.6)
[2019-04-21 16:18] LABS: INR 0.9 (<1.2); Partial Thromboplastin Time 24.8 sec (22.0-30.0)
--- NOTE | 2019-04-21 16:44 | XR ---
EXAMINATION TYPE: XR chest 2V DATE OF EXAM: 04/21/2019 COMPARISON: October 06, 2018 HISTORY: Preop testing TECHNIQUE: Frontal and lateral views of the chest are obtained. FINDINGS: Heart and mediastinum are normal. There are small calcified granulomata in both lungs. The re are emphysematous changes in the right upper lobe. There are no hilar masses. There is upper lumba r vertebroplasty. IMPRESSION: COPD. Old granulomatous disease. No acute lung disease. No change.
[2019-04-21 16:56] LABS: Appearance,Urine Clear (Clear); Bilirubin,Urine Negative (Negative); Blood,Urine Negative (Negative); Color,Urine Light Yellow; Glucose,Urine (UA) Negative (Negative); Ketones,Urine Negative (Negative); Leukocyte Esterase,Urine Negative (Negative); Nitrite,Urine Negative (Negative); PH, Urine 5.5 (5.0-8.0); Protein,Urine Negative (Negative); Specific Gravity,Urine 1.008 (1.001-1.035); Urobilinogen,Urine <2.0 mg/dL (<2.0)
[2019-04-22 00:46] LABS: Anion Gap 10.7 mmol/L (4.00-12.00); Calcium 9.7 mg/dL (8.7-10.3); Carbon Dioxide 21.3 mmol/L (21.6-31.8); Potassium 3.8 mmol/L (3.5-5.5)
== END | disposition home or self-care (01) ==
LOC: LABWHC1 15:03
PROVIDERS: ATTEND Orthopaedic Surgery Orthopaedic Surgery of the Spine
DX: Z01.818 Encounter for other preprocedural examination (principal); Z01.812 Encounter for preprocedural laboratory examination; J44.9 Chronic obstructive pulmonary disease, unspecified; M43.10 Spondylolisthesis, site unspecified
CPT/HCPCS: 36415; 71046; 80048; 81003; 85025; 85610; 85730; 87070

== ENCOUNTER 2019-06-29 10:25 | Emergency (ER) | payer MEDICARE, OTHER ==
[2019-06-29 10:39] VITALS: TEMP 98.3
[2019-06-29] MEDS ORDERED: KETOROLAC 30 MG/ML 1 ML VIAL IVP STA ×2 (11:02→12:30)
--- NOTE | 2019-06-29 11:25 | ED ---
Chest Pain HPI - General Chief Complaint: Chest Pain Stated Complaint: Chest pain Time Seen by Provider: 06/29/19 10:43 Source: patient Mode of arrival: wheelchair Limitations: no limitations - History of Present Illness Initial Comments: Patient is a 53-year-old female, with past medical hx of COPD, fibromyalgia, GERD, degenerative disc disease of the spine, presenting to the emergency Department with complaints of chest pain and left arm pain that happened approximately one hour prior to arrival. Patient states she noticed left arm pain partially 10 AM this morning without history of injury to her left arm. The pain then traveled to left upper arm as well as into the left side of the chest. Patient states the pain is described as sharp in nature and constant. Patient rates her pain 7/10 currently. Patient has never had this pain before. Patient denies any trauma to the area. Patient denies fever, chills, nausea, vomiting. Patient states she took one of her pain medications, oxycodone, prior to arrival. There are no alleviating factors. Patient has no other complaints at this time. Upon arrival to ER, Vital signs 98.3, pulse 109, respiratory rate 20, blood pressure 161/90, 98% on room air. - Related Data Home Medications Medication Instructions Recorded Confirmed DULoxetine HCL [Cymbalta] 30 mg PO QAM 03/19/17 06/29/19 DULoxetine HCL [Cymbalta] 60 mg PO QAM 03/19/17 06/29/19 Albuterol Inhaler [Ventolin Hfa 1 - 2 puff INHALATION RT-Q6H PRN 04/11/18 06/29/19 Inhaler] Montelukast [Singulair] 10 mg PO HS 04/11/18 06/29/19 rOPINIRole HCL [Requip] 0.75 mg PO HS 04/11/18 06/29/19 Meloxicam [Mobic] 15 mg PO DAILY 09/02/18 06/29/19 Eszopiclone [Lunesta] 1 mg PO HS PRN 09/27/18 06/29/19 Gabapentin [Neurontin] 300 mg PO TID 09/27/18 06/29/19 Loratadine 10 mg PO DAILY 09/27/18 06/29/19 Omeprazole 40 mg PO QAM 12/06/18 06/29/19 Cyclobenzaprine [Flexeril] 10 mg PO BID PRN 04/26/19 06/29/19 ALPRAZolam [Xanax] 0.5 mg PO BID 06/29/19 06/29/19 Budesonide/Formoterol Fumarate 2 puff INHALATION RT-BID 06/29/19 06/29/19 [Symbicort 80-4.5 Mcg Inhaler] oxyCODONE-APAP 10-325MG [Percocet 1 tab PO Q4HR PRN 06/29/19 06/29/19 10-325 mg] Allergies Allergy/AdvReac Type Severity Reaction Status Date / Time No Known Allergies Allergy Verified 06/29/19 11:34 Review of Systems ROS Statement: Those systems with pertinent positive or pertinent negative responses have been documented in the HPI. ROS Other: All systems not noted in ROS Statement are negative. EKG Findings - EKG Comments: EKG Findings:: Ventricular rate 98, TX interval 146, QTC 454. Normal sinus rhythm. Nonspecific ST abnormalities. Compared to EKG September 2018. Past Medical History Past Medical History: COPD, Fibromyalgia, GERD/Reflux, Musculoskeletal Disorder, Osteoarthritis (OA), Pneumonia Additional Past Medical History / Comment(s): Degenerative disc disease of the spine, restless leg syndrome, wears back brace, orthotic left foot, hx of 2 fx left foot, Insomnia, ? hernia., states having bloating and gas., Fx L-5. History of Any Multi-Drug Resistant Organisms: None Reported Past Surgical History: Breast Surgery, Orthopedic Surgery Additional Past Surgical History / Comment(s): left knee, bilateral breast lumpectomy, endoscopy. T12 surgery Past Anesthesia/Blood Transfusion Reactions: Family History of Problems w/ Anesthesia, Postoperative Nausea & Vomiting (PONV) Additional Past Anesthesia/Blood Transfusion Reaction / Comment(s): children have PONV Past Psychological History: Anxiety, Depression Smoking Status: Current every day smoker Past Alcohol Use History: Rare Past Drug Use History: None Reported - Past Family History Mother Family Medical History: No Reported History Additional Family Medical History / Comment(s): Mother at age 68 from upper GI bleed. Father Additional Family Medical History / Comment(s): Father at young age from gunshot wound. Sister(s) Additional Family Medical History / Comment(s): Patient has 2 sisters and one has a pacemaker. Patient does not have any brothers. Patient has 2 sons and 3 daughters. One has H. pylori. Otherwise no major medical problems. General Exam - General Exam Comments Initial Comments: GENERAL: Well-appearing, in mild distress secondary to pain. HEAD: Atraumatic, normocephalic. EYES: Pupils equal round and reactive to light, extraocular movements intact, sclera anicteric, conjunctiva are normal. ENT: TMs normal, nares patent, oropharynx clear without exudates. Moist mucous membranes. NECK: Normal range of motion, supple without lymphadenopathy or JVD. LUNGS: Breath sounds clear to auscultation bilaterally and equal. No wheezes rales or rhonchi. HEART: Regular rate and rhythm without murmurs, rubs or gallops. Pain with palpation of the sternum and left side of chest. ABDOMEN: Soft, nontender, normoactive bowel sounds. No guarding, no rebound. No masses appreciated. : Deferred EXTREMITIES: Patient has full range of motion of the left shoulder and elbow. Neurovascular intact. There is no edema, bruising. No clubbing or cyanosis. NEUROLOGICAL: Cranial nerves II through XII grossly intact. Normal speech, normal gait. PSYCH: Normal mood, normal affect. SKIN: Warm, Dry, normal turgor, no rashes or lesions noted. Limitations: no limitations Course Vital Signs 06/29/19 06/29/19 10:38 12:31 Temperature 98.3 F Pulse Rate 109 H 96 Respiratory 20 16 Rate Blood Pressure 161/90 145/96 O2 Sat by Pulse 98 98 Oximetry Chest Pain [facility] Patient is a 53-year-old female presenting with chest pain times one day. Patient reports pain in her left arm that has been radiating into her left chest. Patient recently had a cardic workup with Dr. Santos approximately 2 months ago which included a stress test. There is no acute findings. CBC, coags, CMP are within normal limits today. Troponin is normal. EKG was within normal limits and comparable to her old EKG. Chest x-ray shows COPD and bilateral pulmonary nodules that were seen on prior exam. Patient was given Toradol for her symptoms and reports improvement. Patient is stable for discharge at this time. Patient will follow up with Dr. Santos. Strict return parameters were discussed with the patient she verbalized understanding. Smoking sensation was discussed with the patient. Case discussed with Dr. Quinteros. Disposition Clinical Impression: Atypical chest pain, Left arm pain, COPD (chronic obstructive pulmonary disease) Disposition: HOME SELF-CARE Condition: Stable Instructions (If sedation given, give patient instructions): Costochondritis (ED) Additional Instructions: Please return to the Emergency Department if symptoms worsen or any other concerns. Follow-up with Dr. Santos as discussed. Is patient prescribed a controlled substance at d/c from ED?: No Referrals: Sampson Nova MD [Primary Care Provider] - 1-2 days Orestes Santos MD [STAFF PHYSICIAN] - 1-2 days
--- NOTE | 2019-06-29 11:34 | XR ---
EXAMINATION TYPE: XR chest 2V DATE OF EXAM: 06/29/2019 COMPARISON: 05/13/2019 TECHNIQUE: PA and lateral views submitted. HISTORY: Chest pain FINDINGS: Bilateral areas of nodularity are stable suggestive of granuloma. Evidence of previous vertebroplasty noted with curvature of the spine. Coarsened interstitium is stable. Biapical pleural thickening. He art size stable. Atherosclerotic change aorta. Hyperinflation noted. IMPRESSION: 1. COPD correlate for chronic interstitial lung disease. 2. Multiple bilateral pulmonary nodules are seen similar to the prior exam. Correlate for previous gr anulomatous disease.
[2019-06-29 11:36] LABS: Basophils # (A) 0.1 k/uL (0-0.2); Basophils % (A) 1 %; Eosinophils # (A) 0.2 k/uL (0-0.7); Eosinophils % (A) 2 %; HCT 39.4 % (34.0-46.0); Lymphocytes # (A) 2.1 k/uL (1.0-4.8); Lymphocytes % (A) 31 %; MCH 28.2 pg (25.0-35.0); MCHC 33.5 g/dL (31.0-37.0); Monocytes # (A) 0.3 k/uL (0-1.0); Monocytes % (A) 4 %; Neutrophils # (A) 4.2 k/uL (1.3-7.7); Neutrophils % (A) 60 %; Platelet Count 298 k/uL (150-450); RBC 4.68 m/uL (3.80-5.40); RDW 14.2 % (11.5-15.5); WBC 6.9 k/uL (3.8-10.6)
[2019-06-29 11:37] LABS: HGB 13.2 gm/dL (11.4-16.0); INR 0.9 (<1.2); MCV 84.2 fL (80.0-100.0); Partial Thromboplastin Time 24.7 sec (22.0-30.0); Prothrombin Time 9.6 sec (9.0-12.0)
[2019-06-29 11:39] LABS: ALT 11 U/L (9-52); AST 23 U/L (14-36); African American GFR (CKD) >90 (>60 ml/min/1.73 sqM); Albumin 4.5 g/dL (3.5-5.0); Alkaline Phosphatase 78 U/L (38-126); Anion Gap 9 mmol/L; Blood Urea Nitrogen 14 mg/dL (7-17); Calcium 9.9 mg/dL (8.4-10.2); Carbon Dioxide 23 mmol/L (22-30); Chloride 106 mmol/L (98-107); Glucose 90 mg/dL (74-99); Magnesium 2.1 mg/dL (1.6-2.3); Potassium 4.3 mmol/L (3.5-5.1); Sodium 138 mmol/L (137-145); Total Bilirubin 0.3 mg/dL (0.2-1.3); Total Protein 7.7 g/dL (6.3-8.2)
[2019-06-29 12:32] VITALS: BP 145/96; PULSE 96; RESP 16
== END 2019-06-29 12:46 | disposition home or self-care (01) ==
LOC: EC 10:25
DX: R07.89 Other chest pain (principal); M79.602 Pain in left arm; J44.9 Chronic obstructive pulmonary disease, unspecified; M51.36 Other intervertebral disc degeneration, lumbar region; R91.8 Other nonspecific abnormal finding of lung field; F17.200 Nicotine dependence, unspecified, uncomplicated; F41.9 Anxiety disorder, unspecified; F32.9 Major depressive disorder, single episode, unspecified; K21.9 Gastro-esophageal reflux disease without esophagitis; M79.7 Fibromyalgia; Z79.51 Long term (current) use of inhaled steroids; Z79.1 Long term (current) use of non-steroidal anti-inflammatories (NSAID); Z79.899 Other long term (current) drug therapy; Z71.6 Tobacco abuse counseling
CPT/HCPCS: 36415; 93005; 80053; 83735; 84484; 85025; 85610; 85730; 71046; 99285; 96374; 96376; J1885

== ENCOUNTER 2019-10-10 10:27 | Day surgery (SDC) | payer MEDICARE, OTHER ==
[2019-10-07 13:26] VITALS: BMI 21.9
[2019-10-10 10:43] VITALS: RESP 16; TEMP 98.4
[2019-10-10] MEDS ORDERED: PROPOFOL 10 MG/ML 20 ML VIAL IV ONE (11:40)
--- NOTE | 2019-10-10 12:18 | P.PCN ---
Date of Procedure: 10/10/19 Description of Procedure: BRIEF HISTORY: Patient is a 53-year-old female presenting for outpatient colonoscopy for evaluation of change in bowel function. Patient reports alternating constipation and diarrhea. Prior colonoscopy unsuccessful secondary to poor prep. No family history of colon cancer. PROCEDURE PERFORMED: Colonoscopy with biopsies. PREOPERATIVE DIAGNOSIS: Change in bowel habits, unable to complete prior colonoscopy due to poor prep . ESTIMATED BLOOD LOSS: Minimal. IV sedation per Anesthesia. PROCEDURE: After informed consent was obtained, the patient, was brought into the endoscopy unit. IV sedation was administered by Anesthesia under continuous monitoring. Digital rectal examination was normal. Initially the Olympus CF-190 flexible video colonoscope was then inserted in the rectum, gradually advanced into the cecum without any difficulty. Careful examination was performed as the scope was gradually being withdrawn. Ileocecal valve and the appendiceal orifice were visualized and appeared normal. Prep was excellent. Mucosa of the cecum, as cending colon, transverse colon, descending colon, sigmoid colon, and rectum appeared normal. The terminal ileum was intubated and appeared normal. Biopsies were taken of the terminal ileum/cecum, right colon, and left colon due to altered bowel function. Retroflexion was performed in the rectum and no lesions were seen. The patient tolerated the procedure well. IMPRESSION: Normal-appearing colon from rectum to cecum and terminal ileum with random biopsies taken given altered bowel function. RECOMMENDATIONS: Findings of this examination were discussed with the patient and her daughter. Okay to resume diet. Okay to resume medications. Follow-up in gastroenterology clinic as previously scheduled.
[2019-10-10 12:40] VITALS: BP 139/82; PULSE 86
== END 2019-10-10 12:47 | disposition home or self-care (01) ==
LOC: ORWHC2ENDO 10:27
PROVIDERS: ATTEND Internal Medicine
DX: K59.00 Constipation, unspecified (principal); R19.7 Diarrhea, unspecified; J44.9 Chronic obstructive pulmonary disease, unspecified; M51.9 Unspecified thoracic, thoracolumbar and lumbosacral intervertebral disc disorder; K21.9 Gastro-esophageal reflux disease without esophagitis; Z72.0 Tobacco use; Z79.899 Other long term (current) drug therapy; Z79.51 Long term (current) use of inhaled steroids; Z98.890 Other specified postprocedural states; Z87.898 Personal history of other specified conditions
CPT/HCPCS: 88305; 45380; J2704

== ENCOUNTER → 2019-11-16 | Outpatient (CLI) | payer MEDICARE, OTHER ==
[2019-11-16 13:12] LABS: HCT 39.6 % (34.0-46.0); HGB 12.7 gm/dL (11.4-16.0); MCH 28.5 pg (25.0-35.0); MCHC 32.1 g/dL (31.0-37.0); MCV 88.7 fL (80.0-100.0); Mean Platelet Volume 7.3; Platelet Count 308 k/uL (150-450); RBC 4.46 m/uL (3.80-5.40); RDW 14.6 % (11.5-15.5); WBC 10.5 k/uL (3.8-10.6)
[2019-11-16 18:32] LABS: African American GFR (CKD) 83.4 (60.0-200.0); Albumin 4.1 g/dL (3.80-4.90); Albumin/Globulin Ratio 2.41 (1.60-3.17); BUN/Creat Ratio 18.89 Ratio (12.00-20.00); Calcium 8.8 mg/dL (8.7-10.3); Chol/HDL Ratio 3.57; Globulin 1.7 g/dL (1.6-3.3); LDL Cholesterol,Calculated 87.6 mg/dL (0.0-131.0); Magnesium 2.2 mg/dL (1.5-2.4); Potassium 4.5 mmol/L (3.5-5.5); Total Bilirubin 0.3 mg/dL (0.3-1.2); Total Protein 5.8 g/dL (6.2-8.2); VLDL Calculation 38.4 mg/dL (5.00-40.00)
[2019-11-21 16:34] LABS: Metanephrine, Free <25 pg/mL (< OR = 57); Normetanephrine, Free 58 pg/mL (< OR = 148); Total, Free (MN + NMN) 58 pg/mL (< OR = 205)
== END | disposition home or self-care (01) ==
LOC: LABWHC1 12:36
PROVIDERS: ATTEND Nurse Practitioner Adult Health
DX: I10 Essential (primary) hypertension (principal); R55 Syncope and collapse; E78.5 Hyperlipidemia, unspecified
CPT/HCPCS: 36415; 80053; 80061; 82533; 83735; 83835; 84443; 84481; 85027

== ENCOUNTER 2020-04-19 15:58 | Emergency (ER) | payer MEDICARE, OTHER ==
[2020-04-19 16:12] VITALS: RESP 18
[2020-04-19] MEDS ORDERED: ACETAMINOPHEN TAB 500 MG TAB PO STA (16:17)
[2020-04-19] MEDS ORDERED: IPRATROPIUM-ALBUTEROL 3 ML NEB INHALATION STA (16:17)
[2020-04-19] MEDS ORDERED: KETOROLAC 30 MG/ML 1 ML VIAL IVP STA (16:17)
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
[2020-04-19 16:48] LABS: Basophils # (A) 0.1 k/uL (0-0.2); Basophils % (A) 1 %; Eosinophils # (A) 0.4 k/uL (0-0.7); Eosinophils % (A) 4 %; HGB 13.1 gm/dL (11.4-16.0); Lymphocytes # (A) 1.3 k/uL (1.0-4.8); Lymphocytes % (A) 14 %; MCH 28.9 pg (25.0-35.0); MCHC 32.7 g/dL (31.0-37.0); MCV 88.6 fL (80.0-100.0); Mean Platelet Volume 7.1; Monocytes # (A) 0.4 k/uL (0-1.0); Monocytes % (A) 5 %; Neutrophils # (A) 7.3 k/uL (1.3-7.7); Neutrophils % (A) 76 %; Platelet Count 347 k/uL (150-450); RBC 4.52 m/uL (3.80-5.40); RDW 13.4 % (11.5-15.5); WBC 9.7 k/uL (3.8-10.6)
[2020-04-19 16:56] LABS: INR 0.9 (<1.2)
[2020-04-19 16:57] LABS: Prothrombin Time 9.5 sec (9.0-12.0)
[2020-04-19 17:01] LABS: Albumin 4.3 g/dL (3.5-5.0); C Reactive Protein 37.9 mg/L (<10.0); Calcium 9.6 mg/dL (8.4-10.2); Total Bilirubin 0.6 mg/dL (0.2-1.3); Total Protein 7.1 g/dL (6.3-8.2)
[2020-04-19 17:11] LABS: Appearance,Urine Turbid (Clear); Bacteria,Urine Moderate /hpf; Bilirubin,Urine Negative (Negative); Blood,Urine Small (Negative); Color,Urine Yellow; Glucose,Urine (UA) Negative (Negative); Ketones,Urine Negative (Negative); Leukocyte Esterase,Urine Large (Negative); Mucus,Urine Few /hpf; Nitrite,Urine Positive (Negative); PH, Urine 5.5 (5.0-8.0); Protein,Urine Trace (Negative); RBC,Urine 7 /hpf (0-5); Specific Gravity,Urine 1.019 (1.001-1.035); Squamous Epithelial Cell,Urine 1 /hpf (0-4); Urobilinogen,Urine <2.0 mg/dL (<2.0); WBC,Urine >182 /hpf (0-5)
[2020-04-19 17:14] LABS: Magnesium 2.2 mg/dL (1.6-2.3); Potassium 5.3 mmol/L (3.5-5.1)
--- NOTE | 2020-04-19 17:26 | XR ---
EXAMINATION TYPE: XR chest 1V portable DATE OF EXAM: 04/19/2020 COMPARISON: Prior chest x-ray 06/29/2019, 12/21/2019, CT 04/23/2019 HISTORY: Fever, cough, shortness of breath TECHNIQUE: Single frontal view of the chest is obtained. FINDINGS: There is no focal air space opacity, pleural effusion, or pneumothorax seen. Scattered nod ularity is again noted. The cardiac silhouette size is stable and enlarged, emphysematous changes are present within the lungs. The osseous structures are intact. Aorta is dense. Vertebral plasty loya ge has been performed and is stable near the thoracic lumbar junction. Prominence of pulmonary artery could be indicative of pulmonary artery hypertension. IMPRESSION: No acute process. Emphysema. Additional findings above.
[2020-04-19] MEDS ORDERED: SODIUM CHLORIDE 0.9% 2,000 ML IV STA (17:37)
[2020-04-19 18:00] VITALS: TEMP 97.9
[2020-04-19 19:12] VITALS: BP 124/78; PULSE 73
[2020-04-20 02:58] LABS: Ferritin 27.9 ng/mL (10.0-291.0)
== END 2020-04-19 19:08 | disposition home or self-care (01) ==
LOC: EC 15:58
DX: N39.0 Urinary tract infection, site not specified (principal); J44.9 Chronic obstructive pulmonary disease, unspecified; I10 Essential (primary) hypertension; F41.9 Anxiety disorder, unspecified; K21.9 Gastro-esophageal reflux disease without esophagitis; F17.200 Nicotine dependence, unspecified, uncomplicated; Z79.1 Long term (current) use of non-steroidal anti-inflammatories (NSAID); Z79.51 Long term (current) use of inhaled steroids; Z79.899 Other long term (current) drug therapy
CPT/HCPCS: 99285; 96365; 96375; 96361; 36415; 94640; 93005; 80053; 82728; 83605; 83615; 83735; 85025; 85610; 85730; 86140; 81001; 87040; 87086; 87077; 87186; 84145; 71045; U0003; J0696; J1885

== ENCOUNTER 2020-07-03 17:24 | Emergency (ER) | payer MEDICARE, OTHER ==
[2020-07-03 17:37] VITALS: RESP 18; TEMP 98.5
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
[2020-07-03 18:19] LABS: Appearance,Urine Cloudy (Clear); Bilirubin,Urine Negative (Negative); Blood,Urine Small (Negative); Color,Urine Yellow; Glucose,Urine (UA) Negative (Negative); Hyaline Casts,Urine 2 /lpf (0-2); Ketones,Urine Negative (Negative); Leukocyte Esterase,Urine Large (Negative); Mucus,Urine Rare /hpf; Nitrite,Urine Negative (Negative); PH, Urine 5.5 (5.0-8.0); Protein,Urine Trace (Negative); RBC,Urine 22 /hpf (0-5); Squamous Epithelial Cell,Urine 6 /hpf (0-4); Urobilinogen,Urine <2.0 mg/dL (<2.0); WBC,Urine >182 /hpf (0-5)
[2020-07-03] MEDS ORDERED: NITROFURANTOIN MONOHYD/M-CRYST 100 MG CAP PO STA (18:33)
[2020-07-03 18:48] VITALS: BP 128/68; PULSE 95
== END 2020-07-03 18:46 | disposition home or self-care (01) ==
LOC: EC 17:24
DX: N39.0 Urinary tract infection, site not specified (principal); J44.9 Chronic obstructive pulmonary disease, unspecified; K21.9 Gastro-esophageal reflux disease without esophagitis; I10 Essential (primary) hypertension; F41.9 Anxiety disorder, unspecified; F17.200 Nicotine dependence, unspecified, uncomplicated; Z79.1 Long term (current) use of non-steroidal anti-inflammatories (NSAID); Z79.51 Long term (current) use of inhaled steroids; Z79.899 Other long term (current) drug therapy
CPT/HCPCS: 81001; 87077; 87086; 87186; 99283

== ENCOUNTER 2020-07-06 12:53 | Emergency (ER) | payer MEDICARE, OTHER ==
[2020-07-06] MEDS ORDERED: methylPREDNISolone SOD SUCCI 125 MG/2 ML VIAL IV STA (13:25)
[2020-07-06] MEDS ORDERED: ALBUTEROL NEBULIZED 2.5 MG/3 ML INHALATION STA (13:25)
[2020-07-06] MEDS ORDERED: SODIUM CHLORIDE 0.9% 500 ML 500 ML IV STA (13:25)
[2020-07-06] MEDS ORDERED: IPRATROPIUM 0.5 MG/2.5 ML NEBU INHALATION STA (13:25)
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
[2020-07-06 14:02] LABS: Basophils % (A) 0 %; Eosinophils # (A) 0.2 k/uL (0-0.7); Eosinophils % (A) 1 %; HCT 36.4 % (34.0-46.0); HGB 12.1 gm/dL (11.4-16.0); Lymphocytes # (A) 1.5 k/uL (1.0-4.8); Lymphocytes % (A) 10 %; MCH 28.6 pg (25.0-35.0); MCHC 33.2 g/dL (31.0-37.0); MCV 86.3 fL (80.0-100.0); Mean Platelet Volume 7.2; Monocytes # (A) 0.3 k/uL (0-1.0); Monocytes % (A) 2 %; Neutrophils # (A) 12.8 k/uL (1.3-7.7); Neutrophils % (A) 86 %; Platelet Count 323 k/uL (150-450); RBC 4.22 m/uL (3.80-5.40); RDW 15.6 % (11.5-15.5)
[2020-07-06 14:12] LABS: ALT 12 U/L (4-34); AST 21 U/L (14-36); African American GFR (CKD) >90 (>60 ml/min/1.73 sqM); Alkaline Phosphatase 60 U/L (38-126); Anion Gap 9 mmol/L; Blood Urea Nitrogen 17 mg/dL (7-17); Calcium 9.4 mg/dL (8.4-10.2); Carbon Dioxide 21 mmol/L (22-30); Chloride 107 mmol/L (98-107); Glucose 139 mg/dL (74-99); Magnesium 2.2 mg/dL (1.6-2.3); Non-African American GFR(CKD) >90 (>60 ml/min/1.73 sqM); Potassium 3.3 mmol/L (3.5-5.1); Sodium 137 mmol/L (137-145); Total Bilirubin 0.4 mg/dL (0.2-1.3)
[2020-07-06 14:25] LABS: INR 0.9 (<1.2); Partial Thromboplastin Time 23.5 sec (22.0-30.0); Prothrombin Time 9.3 sec (9.0-12.0)
--- NOTE | 2020-07-06 14:36 | XR ---
EXAMINATION TYPE: XR chest 2V DATE OF EXAM: 07/06/2020 COMPARISON: Prior chest x-ray 04/19/[address] 05/01/2019 HISTORY: Difficulty breathing, cough TECHNIQUE: Frontal and lateral views of the chest are obtained. FINDINGS: The interstitium is increased, there are nodular densities as on prior exam. Apical bullou s changes are suspected, there is associated scarring. No evident pneumothorax or pleural effusion. H eart size is likely stable. Aorta is dense. There are overlying cardiac leads and the patient is rota sulma. Probable vertebroplasty change at T12. IMPRESSION: Findings are similar to prior exam. Emphysema and old granulomatous disease, interstitia l lung disease
[2020-07-06 16:30] VITALS: BP 108/63; PULSE 98; RESP 24
--- NOTE | 2020-07-06 16:31 | CT ---
EXAMINATION TYPE: CT angio chest DATE OF EXAM: 07/06/2020 COMPARISON: CTA chest May 01, 2019 HISTORY: elevated d-dimer, shortness of breath CT DLP: 297.8 mGycm. Automated Exposure Control for Dose Reduction was Utilized. CONTRAST: CTA scan of the thorax is performed with IV Contrast, patient injected with 100 mL of Isovue 370, pul monary embolism protocol. MIP Images are created on CT scanner and reviewed. FINDINGS: LUNGS: Moderate to advanced underlying emphysematous change is redemonstrated . Moderate fibrosis in the upper lungs again seen. Stable calcified 8 mm nodule or granuloma left upper lobe. Overall incre ased interstitial prominence. Honeycombing in the lung bases. New tiny bilateral pleural effusions. A ssociated compressive atelectasis. MEDIASTINUM: There is satisfactory enhancement of the pulmonary artery and its branches, there is no CT evidence for pulmonary embolism. Persistent enlarged pulmonary arteries consistent with underlying pulmonary hypertension. Heart size upper limits of normal. No pericardial effusion is seen. Persiste nt bilateral hilar and mediastinal adenopathy. Correlate clinically. Coronary artery calculation rede monstrated. OTHER: Underlying scoliotic curvature. IMPRESSION: No CT evidence for acute pulmonary embolism. Correlate for CHF exacerbation fluid overloa d state as there is new mild interstitial edema and tiny bilateral pleural effusions on background ad vanced emphysematous change and significant basilar fibrotic change. Persistent thoracic adenopathy n ew from older studies, follow-up is advised to exclude neoplasm.
[2020-07-06 16:56] VITALS: TEMP 98.2
== END 2020-07-06 16:55 | disposition home or self-care (01) ==
LOC: EC 12:53
DX: J44.9 Chronic obstructive pulmonary disease, unspecified (principal); I10 Essential (primary) hypertension; F41.9 Anxiety disorder, unspecified; K21.9 Gastro-esophageal reflux disease without esophagitis; F17.200 Nicotine dependence, unspecified, uncomplicated; Z79.1 Long term (current) use of non-steroidal anti-inflammatories (NSAID); Z79.899 Other long term (current) drug therapy; Z79.51 Long term (current) use of inhaled steroids
CPT/HCPCS: 36415; 71046; 71275; 80053; 83605; 83735; 83880; 84484; 85025; 85379; 85610; 85730; 87040; 93005; 94640; 96361; 96365; 96375; 99285

== ENCOUNTER 2020-08-11 15:17 | Emergency (ER) | payer MEDICARE, OTHER ==
[2020-08-11] MEDS ORDERED: SODIUM CHLORIDE 0.9% 500 ML 500 ML IV STA (15:26)
[2020-08-11] MEDS ORDERED: SODIUM CHLORIDE 0.9% 1,000 ML IV STA ×3 (15:26→17:28)
[2020-08-11] MEDS ORDERED: ONDANSETRON 4 MG/2 ML VIAL IVP STA (15:26)
[2020-08-11 16:06] LABS: ALT 12 U/L (4-34); AST 26 U/L (14-36); African American GFR (CKD) >90 (>60 ml/min/1.73 sqM); Albumin 4.7 g/dL (3.5-5.0); Alkaline Phosphatase 62 U/L (38-126); Anion Gap 10 mmol/L; Blood Urea Nitrogen 17 mg/dL (7-17); Calcium 9.8 mg/dL (8.4-10.2); Carbon Dioxide 23 mmol/L (22-30); Chloride 103 mmol/L (98-107); Glucose 113 mg/dL (74-99); Magnesium 2.1 mg/dL (1.6-2.3); Non-African American GFR(CKD) 78 (>60 ml/min/1.73 sqM); Phosphorus 3.3 mg/dL (2.5-4.5); Potassium 3.8 mmol/L (3.5-5.1); Sodium 136 mmol/L (137-145); Total Bilirubin 0.9 mg/dL (0.2-1.3)
[2020-08-11 16:10] LABS: HCT 40.7 % (34.0-46.0); HGB 12.9 gm/dL (11.4-16.0); MCH 28.5 pg (25.0-35.0); MCHC 31.7 g/dL (31.0-37.0); MCV 89.9 fL (80.0-100.0); Mean Platelet Volume 7.4; Platelet Count 371 k/uL (150-450); RBC 4.53 m/uL (3.80-5.40); WBC 31.3 k/uL (3.8-10.6)
[2020-08-11 16:11] LABS: Appearance,Urine Clear (Clear); Bilirubin,Urine Negative (Negative); Blood,Urine Negative (Negative); Glucose,Urine (UA) Negative (Negative); Ketones,Urine Trace (Negative); Leukocyte Esterase,Urine Small (Negative); Mucus,Urine Many /hpf; Nitrite,Urine Negative (Negative); PH, Urine 5.5 (5.0-8.0); Protein,Urine Trace (Negative); RBC,Urine 2 /hpf (0-5); Specific Gravity,Urine 1.033 (1.001-1.035); Squamous Epithelial Cell,Urine 1 /hpf (0-4); WBC,Urine 25 /hpf (0-5)
[2020-08-11 16:21] LABS: Color,Urine Yellow
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
[2020-08-11 17:12] LABS: Lymphocytes # (M) 1.57 k/uL (1.0-4.8); Monocytes # (M) 0.63 k/uL (0-1.0); Neutrophils # (M) 29.11 k/uL (1.3-7.7); Neutrophils % (M) 93 %; Nucleated Red Blood Cells 0 /100 WBC (0-0); Total Cells Counted 100
[2020-08-11] MEDS ORDERED: ACET/COD 300 MG/30 MG STARTER PACK 6 TAB BTL PO STA (18:47)
[2020-08-11] MEDS ORDERED: ONDANSETRON 4 MG ODT STARTER PACK 2 TAB BTL PO STA (18:47)
[2020-08-11 19:34] VITALS: BP 151/96; PULSE 103; RESP 16; TEMP 98.3
== END 2020-08-11 19:33 | disposition home or self-care (01) ==
LOC: EC 15:17
DX: N12 Tubulo-interstitial nephritis, not specified as acute or chronic (principal); J44.9 Chronic obstructive pulmonary disease, unspecified; M79.7 Fibromyalgia; K21.9 Gastro-esophageal reflux disease without esophagitis; I10 Essential (primary) hypertension; M19.90 Unspecified osteoarthritis, unspecified site; G25.81 Restless legs syndrome; K58.9 Irritable bowel syndrome, unspecified; F41.9 Anxiety disorder, unspecified; Z79.1 Long term (current) use of non-steroidal anti-inflammatories (NSAID); Z79.899 Other long term (current) drug therapy; Z79.51 Long term (current) use of inhaled steroids
CPT/HCPCS: 36415; 80053; 83605; 83735; 84100; 84484; 85025; 81001; 87086; 99284; 96365; 96375; 96361 ×2; J2405; J0696; S0119

== ENCOUNTER → 2021-01-15 | Outpatient (CLI) | payer MEDICARE, OTHER ==
--- NOTE | 2021-01-15 12:40 | CT ---
EXAMINATION TYPE: CT chest w con DATE OF EXAM: 01/15/2021 COMPARISON: CT chest 07/06/2020 HISTORY: Pulmonary nodule CT DLP: 138.10 mGycm Automated exposure control for dose reduction was used. CONTRAST: CT scan of the chest is performed with IV Contrast, patient injected with 100 ml mL of Isovue 300. FINDINGS: LUNGS: The lungs are remarkable for extensive emphysematous change, calcified nodules again scattered within the lungs as noted previously. Probable scarring in the right upper lobe with pleural tag, a xial image 25 shows a similar appearance, apical bullous changes are present. There is no pleural eff usion or pneumothorax seen. The tracheobronchial tree is patent. MEDIASTINUM: There are no greater than 1 cm hilar or mediastinal lymph nodes, previous described emanuel opathy is improved. No pericardial effusion is seen. Prominent pulmonary artery again noted, corre late for pulmonary artery hypertension AORTA: No additional significant abnormality is seen. OTHER: No additional significant abnormality is seen. IMPRESSION: Stable calcified granulomas. Advanced emphysema. Correlate for possible pulmonary artery hypertension.
== END | disposition home or self-care (01) ==
LOC: RADCTMAIN 08:40
PROVIDERS: ATTEND Internal Medicine Critical Care Medicine
DX: J43.9 Emphysema, unspecified (principal); J84.10 Pulmonary fibrosis, unspecified
CPT/HCPCS: 71260; Q9967

== ENCOUNTER → 2021-01-29 | Outpatient (CLI) | payer MEDICARE, OTHER | END | disposition home or self-care (01) | LOC: LABWHC1 13:56 | PROVIDERS: ATTEND Psychiatry & Neurology Neurology | DX: Z01.812 Encounter for preprocedural laboratory examination (principal); Z20.822 Contact with and (suspected) exposure to COVID-19 | CPT/HCPCS: U0003; C9803; U0005 ==

== ENCOUNTER → 2021-03-06 | Outpatient (CLI) | payer MEDICARE, OTHER | END | disposition home or self-care (01) | LOC: LABWHC1 14:52 | PROVIDERS: ATTEND Psychiatry & Neurology Neurology | DX: Z01.812 Encounter for preprocedural laboratory examination (principal); Z11.52 Encounter for screening for COVID-19 | CPT/HCPCS: U0003; U0005 ==

== ENCOUNTER 2021-04-16 11:50 | Emergency (ER) | payer MEDICARE, OTHER ==
[2021-04-16 11:56] VITALS: BP 126/72; PULSE 90; RESP 16; TEMP 97.7
[2021-04-16] MEDS ORDERED: KETOROLAC 15 MG/ML 1 ML VIAL IM STA (12:04)
--- NOTE | 2021-04-16 12:22 | XR ---
EXAMINATION TYPE: XR wrist complete RT DATE OF EXAM: 04/16/2021 CLINICAL HISTORY: Punched a wall today TECHNIQUE: Frontal, lateral and oblique images of the right wrist are obtained. COMPARISON: None FINDINGS: There is no acute fracture/dislocation evident in the right wrist. There are degenerative changes of the triscaphe articulation and first carpometacarpal articulation. IMPRESSION: There is no acute fracture or dislocation in the right wrist.
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
== END 2021-04-16 12:51 | disposition home or self-care (01) ==
LOC: EC 11:50
DX: M25.531 Pain in right wrist (principal); M79.89 Other specified soft tissue disorders; I10 Essential (primary) hypertension; J44.9 Chronic obstructive pulmonary disease, unspecified; K21.9 Gastro-esophageal reflux disease without esophagitis; G25.81 Restless legs syndrome; M19.90 Unspecified osteoarthritis, unspecified site; M79.7 Fibromyalgia; F41.9 Anxiety disorder, unspecified; Z87.891 Personal history of nicotine dependence; Z79.51 Long term (current) use of inhaled steroids; Z79.1 Long term (current) use of non-steroidal anti-inflammatories (NSAID)
CPT/HCPCS: 73110; 99283; 29125; 96372; J1885

== ENCOUNTER 2021-07-28 21:33 | Emergency (ER) | payer MEDICARE, OTHER ==
[2021-07-28 22:20] VITALS: RESP 22
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
[2021-07-29 00:13] VITALS: BP 138/88; PULSE 90; TEMP 97.8
== END 2021-07-29 00:12 | disposition home or self-care (01) ==
LOC: EC 21:33
DX: Z20.822 Contact with and (suspected) exposure to COVID-19 (principal); I10 Essential (primary) hypertension; J44.9 Chronic obstructive pulmonary disease, unspecified; K21.9 Gastro-esophageal reflux disease without esophagitis; F41.9 Anxiety disorder, unspecified; M19.90 Unspecified osteoarthritis, unspecified site; M79.7 Fibromyalgia; Z79.1 Long term (current) use of non-steroidal anti-inflammatories (NSAID); Z79.51 Long term (current) use of inhaled steroids; Z79.899 Other long term (current) drug therapy; Z87.891 Personal history of nicotine dependence
CPT/HCPCS: 87635; 99282

== ENCOUNTER 2021-09-30 11:20 | Emergency (ER) | payer MEDICARE, OTHER ==
[2021-09-30 11:55] VITALS: TEMP 97.8
[2021-09-30] MEDS ORDERED: methylPREDNISolone SOD SUCCI 125 MG/2 ML VIAL IV STA (13:23)
[2021-09-30] MEDS ORDERED: IPRATROPIUM-ALBUTEROL 3 ML NEB INHALATION STA (13:23)
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
[2021-09-30 14:07] VITALS: RESP 18
[2021-09-30 14:14] LABS: Basophils # (A) 0.1 k/uL (0-0.2); Basophils % (A) 1 %; Eosinophils # (A) 0.2 k/uL (0-0.7); Eosinophils % (A) 2 %; HCT 40.8 % (34.0-46.0); HGB 13.3 gm/dL (11.4-16.0); Lymphocytes % (A) 24 %; MCH 30.1 pg (25.0-35.0); MCHC 32.7 g/dL (31.0-37.0); MCV 92.1 fL (80.0-100.0); Mean Platelet Volume 7.3; Monocytes # (A) 0.4 k/uL (0-1.0); Monocytes % (A) 5 %; Neutrophils # (A) 5.5 k/uL (1.3-7.7); Neutrophils % (A) 67 %; Platelet Count 341 k/uL (150-450); RBC 4.43 m/uL (3.80-5.40); RDW 13.9 % (11.5-15.5); WBC 8.2 k/uL (3.8-10.6)
--- NOTE | 2021-09-30 14:22 | XR ---
EXAMINATION TYPE: XR chest 2V DATE OF EXAM: 09/30/2021 COMPARISON: 07/06/2020 TECHNIQUE: PA and lateral views submitted. HISTORY: Shortness of breath FINDINGS: Vague subsegmental changes along the right lung base. There is cardiomegaly and hyperinflation sugges tive of COPD. Bilateral granulomas are seen in the lung [place]. Atherosclerotic change aorta. Diffuse osteopenia. Nonspecific density overlying the trachea at the level of the cervical level. Thi s could be superficial location correlate clinically. Previous vertebral plasty seen and there is mul tilevel hypertrophic and degenerative change spine. IMPRESSION: 1. COPD and cardiomegaly with changes of chronic granulomatous. 2. Vague density along the right lung base could represent early infiltrate. Neoplasm not excluded. Follow to resolution recommended.
[2021-09-30 14:36] LABS: Albumin 4.5 g/dL (3.5-5.0); Calcium 10.1 mg/dL (8.4-10.2); Potassium 4.3 mmol/L (3.5-5.1); Total Bilirubin 0.5 mg/dL (0.2-1.3); Total Protein 7.7 g/dL (6.3-8.2)
[2021-09-30] MEDS ORDERED: PNEUMONIA PROTOCOL UTILIZED 1 EACH MISC PO PRN (15:43)
[2021-09-30] MEDS ORDERED: AZITHROMYCIN 500 MG in SODIUM CHLORIDE 0.9% 250 ML IVPB STA (15:43)
[2021-09-30] MEDS ORDERED: IPRATROPIUM-ALBUTEROL 3 ML NEB INHALATION PRN (15:43)
[2021-09-30] MEDS ORDERED: SODIUM CHLORIDE 0.9% 1,000 ML IV SCH (15:45)
[2021-09-30] MEDS ORDERED: IPRATROPIUM-ALBUTEROL 3 ML NEB INHALATION SCH (16:00)
--- NOTE | 2021-09-30 16:31 | ED ---
Medical Decision Making - Medical Decision Making Patient no longer wants to stay in the hospital. Lung sounds are clear. - Lab Data Result diagrams: 09/30/21 13:55 09/30/21 13:55 Lab Results 09/30/21 09/30/21 09/30/21 Range/Units 13:55 13:55 13:55 WBC 8.2 (3.8-10.6) k/uL RBC 4.43 (3.80-5.40) m/uL Hgb 13.3 (11.4-16.0) gm/dL Hct 40.8 (34.0-46.0) % MCV 92.1 (80.0-100.0) fL MCH 30.1 (25.0-35.0) pg MCHC 32.7 (31.0-37.0) g/dL RDW 13.9 (11.5-15.5) % Plt Count 341 (150-450) k/uL MPV 7.3 Neutrophils % 67 % Lymphocytes % 24 % Monocytes % 5 % Eosinophils % 2 % Basophils % 1 % Neutrophils # 5.5 (1.3-7.7) k/uL Lymphocytes # 2.0 (1.0-4.8) k/uL Monocytes # 0.4 (0-1.0) k/uL Eosinophils # 0.2 (0-0.7) k/uL Basophils # 0.1 (0-0.2) k/uL Sodium 135 L (137-145) mmol/L Potassium 4.3 (3.5-5.1) mmol/L Chloride 105 (98-107) mmol/L Carbon Dioxide 23 (22-30) mmol/L Anion Gap 7 mmol/L BUN 20 H (7-17) mg/dL Creatinine 0.91 (0.52-1.04) mg/dL Est GFR (CKD-EPI)AfAm 82 (>60 ml/min/1.73 sqM) Est GFR (CKD-EPI)NonAf 71 (>60 ml/min/1.73 sqM) Glucose 97 (74-99) mg/dL Calcium 10.1 (8.4-10.2) mg/dL Total Bilirubin 0.5 (0.2-1.3) mg/dL AST 24 (14-36) U/L ALT 12 (4-34) U/L Alkaline Phosphatase 59 (38-126) U/L Total Protein 7.7 (6.3-8.2) g/dL Albumin 4.5 (3.5-5.0) g/dL Coronavirus (PCR) Not Detected (Not Detectd) Disposition Clinical Impression: COPD (chronic obstructive pulmonary disease), Pneumonia Disposition: HOME SELF-CARE Condition: Stable Is patient prescribed a controlled substance at d/c from ED?: No Time of Disposition: 16:31
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
[2021-09-30 17:53] VITALS: BP 104/62; PULSE 88
[2021-09-30] MEDS ORDERED: methylPREDNISolone SOD SUCCI 125 MG/2 ML VIAL IV SCH (18:00)
[2021-10-01] MEDS ORDERED: AZITHROMYCIN 500 MG TAB PO SCH (09:00)
== END 2021-09-30 18:02 | disposition home or self-care (01) ==
LOC: EC 11:20 → UNDOADMOB 16:00 → 6NMEDSUR 16:00 → EC 18:02
DX: J44.9 Chronic obstructive pulmonary disease, unspecified (principal); J18.9 Pneumonia, unspecified organism; Z20.822 Contact with and (suspected) exposure to COVID-19; I10 Essential (primary) hypertension; K21.9 Gastro-esophageal reflux disease without esophagitis; M79.7 Fibromyalgia; M19.90 Unspecified osteoarthritis, unspecified site; F41.9 Anxiety disorder, unspecified; F17.200 Nicotine dependence, unspecified, uncomplicated; Z79.1 Long term (current) use of non-steroidal anti-inflammatories (NSAID); Z79.899 Other long term (current) drug therapy
CPT/HCPCS: 36415; 71046; 80053; 85025; 87635; 93005; 94640; 96361; 96374; 99285

== ENCOUNTER → 2022-12-30 | Outpatient (CLI) | payer MEDICARE, OTHER ==
--- NOTE | 2023-01-01 09:20 | MM ---
Reason for Exam: Screening (asymptomatic). Patient History: Menarche at age 15. First Full-Term at age 17. Postmenopausal. Risk Values: Anju 5 year model risk: 0.9%. Prior Study Comparison: No prior studies available for comparison. Tissue Density: The breast tissue is heterogeneously dense. This may lower the sensitivity of mammography. Findings: Analyzed By CAD. Pattern appears symmetrical. No suspicious groups of microcalcifications, spiculated or lobular masses, architectural distortion or other secondary signs of malignancy are mammographically apparent. Overall Assessment: Negative, BI-RAD 1 Management: Screening Mammogram of both breasts in 1 year. A negative mammogram report should not preclude additional follow up of suspicious palpable abnormalities. Patient should continue monthly self breast exam. A clinical breast exam by your physician is recommended on an annual basis and results should be correlated with mammographic findings. Electronically signed and approved by: Roby Nino D.O. Radiologis
== END | disposition home or self-care (01) ==
LOC: RADMAMWWP 16:33
PROVIDERS: ATTEND Family Medicine
DX: Z12.31 Encounter for screening mammogram for malignant neoplasm of breast (principal); Z78.0 Asymptomatic menopausal state
CPT/HCPCS: 77067

== ENCOUNTER → 2023-09-07 | Outpatient (CLI) | payer MEDICARE, OTHER ==
--- NOTE | 2023-09-07 20:40 | US ---
EXAMINATION TYPE: US kidneys/renal and bladder DATE OF EXAM: 09/07/2023 COMPARISON: NONE CLINICAL INDICATION: Female, 57 years old with history of R63.4 ABNORMAL WEIGHT LOSS; Weight loss EXAM MEASUREMENTS: Right Kidney: 8.7 x 3.2 x 3.7 cm Left Kidney: 8.9 x 4.5 x 4.3 cm Right Kidney: borderline small in size. Inferior pole obscured by bowel gas Left Kidney: No evidence of hydronephrosis or renal calculus. Cortical medullary differentiation main tained. Dromedary hump noted.. Bladder: appears wnl Bilateral Jets seen: no There is no evidence for hydronephrosis at this point in time. No nephrolithiasis is seen. No fermin s are identified. The urinary bladder is anechoic. Bilateral ureteral jets are seen. IMPRESSION: No evidence for acute process. No obstructive uropathy or renal calculus.
== END | disposition home or self-care (01) ==
LOC: RADUSWWP 16:16
PROVIDERS: ATTEND Family Medicine
DX: R63.4 Abnormal weight loss (principal)
CPT/HCPCS: 76770

== ENCOUNTER 2023-10-17 13:06 | Emergency (ER) | payer MEDICARE, OTHER ==
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
[2023-10-17 13:36] VITALS: BP 139/92; PULSE 102; RESP 18; TEMP 98
--- NOTE | 2023-10-17 13:44 | XR ---
EXAMINATION TYPE: XR elbow complete RT DATE OF EXAM: 10/17/2023 COMPARISON: None HISTORY: Fall, pain TECHNIQUE: 3 view right elbow FINDINGS: There is an avulsion of the olecranon. There is elevation of the anterior and posterior fat pads. Radius aligns normally with the humerus. No additional fractures are evident. IMPRESSION: 1. Avulsion of the olecranon with diastases of the fracture fragments.
== END 2023-10-17 19:17 | disposition home or self-care (01) ==
LOC: EC 13:06
DX: S52.021A Displaced fracture of olecranon process without intraarticular extension of right ulna, initial encounter for closed fracture (principal); I10 Essential (primary) hypertension; J44.9 Chronic obstructive pulmonary disease, unspecified; F41.9 Anxiety disorder, unspecified; F17.200 Nicotine dependence, unspecified, uncomplicated; Z79.51 Long term (current) use of inhaled steroids; Z79.899 Other long term (current) drug therapy; W10.9XXA Fall (on) (from) unspecified stairs and steps, initial encounter
CPT/HCPCS: 29105; 99283

== ENCOUNTER 2023-10-29 08:35 | Day surgery (SDC) | payer MEDICARE, OTHER ==
[2023-10-22 13:52] VITALS: BMI 18.8
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
[2023-10-29] MEDS ORDERED: ONDANSETRON 4 MG/2 ML VIAL IVP ONE (09:02)
[2023-10-29] MEDS ORDERED: SCOPOLAMINE 1 MG/72 HR PATCH TRANSDERM ONE ×2 (09:02→09:56)
[2023-10-29] MEDS ORDERED: HYDROmorphone 0.5 MG/0.5 ML SYRINGE IVP PRN (09:02)
[2023-10-29] MEDS ORDERED: DEXAMETHASONE SOD PHOSPHATE 4 MG/ML 1 ML VIAL IV ONE (09:02)
[2023-10-29] MEDS ORDERED: MIDAZOLAM 2 MG/2 ML VIAL IV PRN (09:02)
[2023-10-29] MEDS: LACTATED RINGERS 1,000 ML IV SCH ×2 (09:04→11:35)
[2023-10-29 09:23] LABS: Glucose,Whole Blood 89 mg/dL (70-110)
[2023-10-29 09:37] VITALS: TEMP 97
[2023-10-29] MEDS ORDERED: FAMOTIDINE 20 MG/2 ML VIAL IVP ONE (09:55)
[2023-10-29] MEDS ORDERED: IPRATROPIUM 0.5 MG/2.5 ML NEBU INHALATION ONE ×2 (09:57→10:01)
[2023-10-29] MEDS ORDERED: IPRATROPIUM-ALBUTEROL 3 ML NEB ONE (09:57)
[2023-10-29] MEDS ORDERED: MIDAZOLAM 2 MG/2 ML VIAL IVP ONE (10:23)
--- NOTE | 2023-10-29 10:36 | P.ANPRN ---
Procedure Note - Anesthesia - Nerve Block Performed Right Supraclavicular Single Time Out Performed: Yes Date of Procedure: 10/29/23 Procedure Start Time: Procedure Stop Time: Location of Patient: PreOp Indication: Acute Post-Operative Pain, Analgesia, Requested by Surgeon Sedation Type: Sedate with meaningful contact maintained Preparation: Sterile Prep Position: Sitting Catheter: None Needle Types: Pajunk Needle Gauge: 21 Ultrasound used to visualize needle placement: Yes Ultrasound used to observe medication spread: Yes Injectate: 0.5% Ropivacaine (see comment for volume) (Ropiv 20ml) Narrative: Nerve stimulation @0.5 Ma Blood Aspirated: No Pain Paresthesia on Injection Noted: No Resistance on Injection: Normal Image Stored and Saved: Yes Events: Uneventful and Well Tolerated
[2023-10-29] MEDS ORDERED: MIDAZOLAM 2 MG/2 ML VIAL ONE (10:51)
[2023-10-29] MEDS ORDERED: PHENYLEPHRINE 10 MG/ML VIAL ONE (10:51)
[2023-10-29] MEDS ORDERED: ROPIVACAINE 5 MG/ML 30 ML VIAL ONE (10:51)
[2023-10-29] MEDS ORDERED: LIDOCAINE 1% INJ 10MG/ML (20 ML MDV) ONE (10:51)
[2023-10-29] MEDS ORDERED: LIDOCAINE 4% LTA KIT (4 ML) TOPICAL ONE (10:51)
[2023-10-29] MEDS ORDERED: SUCCINYLCHOLINE CHLORIDE 200 MG/10 ML VIAL IV ONE (10:51)
[2023-10-29] MEDS ORDERED: PROPOFOL 10 MG/ML 20 ML VIAL IV ONE (10:51)
[2023-10-29 14:44] VITALS: BP 111/74; PULSE 88; RESP 19
--- NOTE | 2023-10-29 15:53 | P.OP ---
Date of Procedure: 10/29/23 Preoperative Diagnosis: 1) Right triceps tendon rupture Postoperative Diagnosis: 1) Right triceps tendon rupture Procedure(s) Performed: 1) Right triceps tendon repair Implants: Arthrex 4.75 Swivel Lock suture anchor x1 Anesthesia: [facility] regional Surgeon: Ignacio Bain Senior Net Developer Architect #1: Jorge Antoine Pathology: none sent Condition: stable Disposition: PACU Description of Procedure: This is a 57 year old female who sustained right triceps tendon rupture and presents today for surgical intervention. Risks and benefits of surgery were discussed with the patient including bleeding, infection, damage to surrounding tissue, need for further surgery as well as risks of anesthesia including pulmonary embolism and even and the patient wished to proceed with surgical intervention. The patient was seen in the pre-operative area by myself. Consent and H&P were completed and updated. The correct extremity was marked in the pre-operative area by myself and all other questions were answered. Operative Narrative: The patient was brought to the operating room by the department of anesthesia. They were placed supine on the operative table and general anesthesia was performed. The patient was then drifted off to sleep by the department of anesthesia. A nonsterile tourniquet was then applied to the operative extremity and the patient was then placed in a newman bag lateral position with all shadi prominences well padded, axillary role was placed. The upper extremity was then prepped and draped in normal sterile fashion. Pre- operative time out was performed indicating the correct patient, procedure and laterality. All in the room agreed. Pre-operative antibiotics were given prior to skin incision. The operative extremity was the exsanguinated with an esmarch bandage and the tourniquet was inflated to 250mmHg. 15 blade scalpel was utilized to make a longitudinal incision over the posterior aspect of the elbow that was directed radially around the olecranon process. Full thickness flaps were then made down to the olecranon and triceps insertion. Bovie cautery was utilized for hemostasis. Hematoma was evacuated with suction and irrigation, there was complete rupture of the triceps tendon insertion off the footprint of the olecranon process. The tendon edges were debrided and footprint was identified. A #2 fiberwire was then inserted at the footprint laterally and passed proximally for 5 passes in a locking Krackow stitch and then brought back distally exiting through the footprint. The same was done along the medial edge of the tendon leaving 4 total strands exiting the footprint. A fiberlink suture was then passed both medially and laterally for shuttling of sutures, this was inserted through the footprint with a free needle with loop left posteriorly. A 2.0mm drill bit was then utilized to drill suture tunnels from proximal to distal on both the medial and lateral aspects of the olecranon making sure to stay extra-articular. The drill for the central 4.75mm Swivel Lock suture anchor was then drilled aiming slightly distal to avoid the articular surface. Willis suture passer was then inserted in retrograde fashion and the 3 limbs of the medial suture were passed, the same was done for the lateral 3 sutures. One suture from the medial group and lateral group was then passed through the fiberlink loop medially and then repassed through the tunnel. The same was done for the lateral tunnel. The suture ends were then passed through the Swivel Lock suture anchor. Appropriate tensioning was performed and the 4.75mm Swivel lock anchor was then tapped and advanced into the bone without complication until it was flush with the cortex. Suture ends were then cut and elbow was ranged and smooth flexion was appreciated and no gapping at the repair site was present. The wound was then irrigated. Layered closure was performed with 3-0 vicryl suture followed by 3-0 nylon suture in a horizontal mattress fashion. Sterile dressing was applied consisting of a adaptic, bacitracin, 4x4s, cast padding, and a anterior slab plaster splint. Tourniquet was let down and the hand had immediate perfusion. The patient was then woken by the department of anesthesia and transferred to PACU in stable condition. Jorge CAMPOS was present to assist in hardware placement and tendon repair. Ignacio Bain D.O. Orthopedic Hand/Upper Extremity Surgeon
== END 2023-10-29 14:19 | disposition home or self-care (01) ==
LOC: OR 08:35
PROVIDERS: ATTEND Orthopaedic Surgery Hand Surgery
DX: S46.311A Strain of muscle, fascia and tendon of triceps, right arm, initial encounter (principal); I10 Essential (primary) hypertension; F41.9 Anxiety disorder, unspecified; F17.210 Nicotine dependence, cigarettes, uncomplicated; J44.9 Chronic obstructive pulmonary disease, unspecified; K21.9 Gastro-esophageal reflux disease without esophagitis; M19.90 Unspecified osteoarthritis, unspecified site; M79.7 Fibromyalgia; Z79.1 Long term (current) use of non-steroidal anti-inflammatories (NSAID); Z79.899 Other long term (current) drug therapy; X58.XXXA Exposure to other specified factors, initial encounter
CPT/HCPCS: 64415; 24342; C1713 ×3; J2250; J0330; J1100; J2405; J0690; J2001; J3490; J2795; J2704; J2371

== ENCOUNTER → 2023-11-26 | Outpatient (CLI) | payer MEDICARE ==
--- NOTE | 2023-11-26 14:08 | CTL ---
EXAMINATION TYPE: CT Low Dose Lung DATE OF EXAM ORDERED: 11/26/2023 HISTORY: Tobacco use.. Lung cancer screening CT DLP: 50.[address] CTDI: 1.4 mGy Automated exposure control for dose reduction was used. SCREENING VISIT: Follow-up. COMPARISON: 11/24/2022. TECHNIQUE: Low dose computed tomography scan was performed through the chest at 1 mm thick sections a nd reconstructed images in multiple planes at 1 mm and [address] DIAGNOSTIC QUALITY: Satisfactory FINDINGS: LUNG NODULES: There is an irregular area of nodularity within the right upper lobe measuring 1.1 cm i n diameter which appears new since the previous examination. This is seen on series 6 image 21. Her s everal scattered calcified and noncalcified pulmonary nodules seen throughout the lungs bilaterally w hich are otherwise unchanged. LUNGS: COPD: Severity: There is severe diffuse centrilobular emphysema. Fibrosis: Severity: None Lymph nodes: No adenopathy. Other findings: RIGHT PLEURAL SPACE: Effusion: None Calcification: None Thickening: None Pneumothorax: None LEFT PLEURAL SPACE: Effusion: None Calcification: None Thickening: None Pneumothorax: None HEART: Heart Size: Normal Coronary Calcification: Mild patchy coronary artery calcifications are seen. Pericardial Effusion: None OTHER FINDINGS: Upper abdomen: None Bony thorax: There is kyphoplasty cement and compression deformity of the L1 vertebral body which is chronic. There are no acute osseous abnormalities. Supraclavicular region: None Other: There is mild vascular calcification within the thoracic aorta without evidence of aneurysmal dilation. IMPRESSION: 1. Increased size of irregular nodular opacity within the right upper lobe when compared to the previ ous examination. 2. Additional calcified and noncalcified nodules are unchanged. 3. Severe emphysema. CT LUNG RAD AND CT CHEST RECOMMENDATION: Lung-Rad 4A Suspicious: Follow-up 3 month LDCT or PET/CT may be used when there is a > 8 mm solid component.
== END | disposition home or self-care (01) ==
LOC: RADCTMAIN 12:50
PROVIDERS: ATTEND Internal Medicine Critical Care Medicine
DX: Z12.2 Encounter for screening for malignant neoplasm of respiratory organs (principal); J43.2 Centrilobular emphysema; R91.8 Other nonspecific abnormal finding of lung field; F17.210 Nicotine dependence, cigarettes, uncomplicated
CPT/HCPCS: 71271

== ENCOUNTER → 2023-12-31 | Outpatient (CLI) | payer MEDICARE ==
--- NOTE | 2023-12-31 13:45 | PE ---
EXAMINATION TYPE: PET CT fusion skull to thigh DATE OF EXAM: 12/31/2023 CLINICAL INDICATION:Female, 58 years old with history of R91.1 SOLITARY PULMONARY NODULE; TECHNIQUE: Following the intravenous administration of 12.6 mCi of F-18 FDG, whole body images are performed from the skull base to the midthigh. Images are reviewed on the computer in the coronal, a xial, and sagittal planes. Reconstructed rotating images are created on independent workstation and reviewed on the computer. A non-contrast CT is performed in conjunction with the PET scan. Glucose level 90 mg/dL CT DLP: 182 mGycm, Automated exposure control for dose reduction was used. COMPARISON: CT 11/26/2023, PET/CT None, FINDINGS: Mediastinal SUV mean is 1.6 . Hepatic parenchyma SUV mean is 2.1. SKULL BASE AND NECK: No suspicious radiotracer activity. CHEST, MEDIASTINUM, AND HILAR REGION: * Consolidation changes in the right upper lung posterior lateral aspect max SUV 1.5. * No enlarged lymphadenopathy identified. * Uptake within lung anteriorly max SUV 2.[address] correlate. ABDOMEN AND PELVIS: No suspicious radiotracer activity. MUSCULOSKELETAL STRUCTURES: * No suspicious radiotracer activity. * Physiologic uptake secondary to possible muscle tear in the right proximal arm max SUV 4.4. * Physiologic uptake within posterior right rib 11 compatible with fracture. OTHER CT: Atherosclerosis of the arterial vasculature. Mild coronary artery cusp patient's. The heart is mildly enlarged for size. Fixation hardware to the spine appears intact. There is a stimulator de vice terminating in the posterior thecal sac. Marked severe emphysema changes with scattered calcific ations. IMPRESSION: 1. No radiotracer uptake above background levels within the right upper lung posterior lateral conso lidation. Short-term follow-up CT for surveillance should be considered in 3-6 months. 2. Right posterior rib 11 fracture. 3. No suspicious radiotracer uptake within the exam.
== END | disposition home or self-care (01) ==
LOC: RADPETMAIN 07:01
PROVIDERS: ATTEND Family Medicine
DX: R91.1 Solitary pulmonary nodule (principal)
CPT/HCPCS: 78815; A9552

== ENCOUNTER 2024-01-03 00:01 | Emergency (ER) | payer MEDICARE ==
[2024-01-03 00:49] VITALS: TEMP 99.6
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
[2024-01-03 01:25] LABS: Basophils % (A) 0 %; Eosinophils # (A) 0.1 k/uL (0-0.7); Eosinophils % (A) 1 %; HCT 43.5 % (34.0-46.0); HGB 14.2 gm/dL (11.4-16.0); Lymphocytes # (A) 0.6 k/uL (1.0-4.8); Lymphocytes % (A) 3 %; MCH 29.7 pg (25.0-35.0); MCHC 32.7 g/dL (31.0-37.0); MCV 90.8 fL (80.0-100.0); Mean Platelet Volume 7.2; Monocytes # (A) 0.3 k/uL (0-1.0); Monocytes % (A) 2 %; Neutrophils # (A) 18.5 k/uL (1.3-7.7); Neutrophils % (A) 94 %; Platelet Count 295 k/uL (150-450); RBC 4.79 m/uL (3.80-5.40); RDW 13.4 % (11.5-15.5); WBC 19.6 k/uL (3.8-10.6)
[2024-01-03] MEDS: ONDANSETRON 4 MG/2 ML VIAL IVP STA (01:30)
[2024-01-03] MEDS: KETOROLAC 15 MG/ML 1 ML VIAL IVP STA (01:30)
[2024-01-03] MEDS: SODIUM CHLORIDE 0.9% 1,000 ML IV STA ×2 (01:31→02:21)
[2024-01-03 01:36] LABS: ALT 20 U/L (4-34); AST 27 U/L (14-36); African American GFR (CKD) >90 (>60 ml/min/1.73 sqM); Albumin 4.6 g/dL (3.5-5.0); Alkaline Phosphatase 85 U/L (38-126); Anion Gap 9 mmol/L; Blood Urea Nitrogen 25 mg/dL (7-17); Calcium 9.7 mg/dL (8.4-10.2); Carbon Dioxide 20 mmol/L (22-30); Chloride 109 mmol/L (98-107); Glucose 128 mg/dL (74-99); Non-African American GFR(CKD) >90 (>60 ml/min/1.73 sqM); Potassium 4.4 mmol/L (3.5-5.1); Sodium 138 mmol/L (137-145); Total Bilirubin 0.6 mg/dL (0.2-1.3); Total Protein 7.5 g/dL (6.3-8.2)
[2024-01-03 02:11] VITALS: RESP 18
[2024-01-03] MEDS: ACETAMINOPHEN TAB 500 MG TAB PO STA (02:20)
[2024-01-03] MEDS: METOCLOPRAMIDE 5 MG/ML 2 ML VIAL IVP STA (02:20)
[2024-01-03 03:36] LABS: Appearance,Urine Clear (Clear); Bilirubin,Urine Negative (Negative); Blood,Urine Negative (Negative); Color,Urine Colorless; Glucose,Urine (UA) Negative (Negative); Ketones,Urine Trace (Negative); Leukocyte Esterase,Urine Negative (Negative); Nitrite,Urine Negative (Negative); PH, Urine 6.5 (5.0-8.0); Protein,Urine Negative (Negative); Specific Gravity,Urine 1.014 (1.001-1.035); Urobilinogen,Urine <2.0 mg/dL (<2.0)
[2024-01-03] MEDS: IBUPROFEN 600 MG STARTER PACK 4 TAB BTL PO STA (04:02)
[2024-01-03] MEDS: ONDANSETRON 4 MG ODT STARTER PACK 2 TAB BTL PO STA (04:02)
[2024-01-03 04:06] VITALS: BP 117/71; PULSE 103
== END 2024-01-03 04:02 | disposition home or self-care (01) ==
LOC: EC 00:01
DX: A08.4 Viral intestinal infection, unspecified (principal); F17.200 Nicotine dependence, unspecified, uncomplicated
CPT/HCPCS: 36415; 80053; 85025; 81003; 87636; 99284; 96374; 96375 ×2; 96361 ×2; J2765; J2405; J1885; S0119

== ENCOUNTER → 2024-01-21 | Outpatient (CLI) | payer MEDICARE, OTHER ==
--- NOTE | 2024-01-21 15:33 | NM ---
EXAMINATION TYPE: NM bone scan whole body DATE OF EXAM: 01/21/2024 3:05 PM CLINICAL INDICATION:Female, 58 years old with history of S22.31XA FRACTURE OF ONE RIB, RIGHT SIDE, IN IT FOR; COMPARISON: Pet/CT 12/31/2023. TECHNIQUE: Intravenous administration 24 mCi Tc 99m MDP followed by multiple scintigraphic images of the appendicular and axial skeleton. Additionally, small field of view planar anterior and posterior images of the lumbosacral spine and pelvis. Lastly, coronal, transverse, and sagittal SPECT images of the lumbosacral spine and pelvis were generated for review.Lastly, small [id number] anterior, pos terior and lateral views of the chest were submitted for review. Images acquired 3 hours post injection. FINDINGS: Abnormal uptake within the right anterior 3rd rib and posterior right 11th rib. Additional subtle inc reased uptake within the 7th rib posteriorly There is increased uptake within the bilateral shoulder, sternoclavicular, and sacroiliac joints con sistent with degenerative changes. No other photopenic areas or areas of increased activity are ident ified. Physiologic radiotracer activity is demonstrated in the kidneys and bladder. IMPRESSION: 3 areas of abnormal uptake within the right anterior chest third rib and right posterior chest though t to be in rib 11 as well as the right 7 rib posteriorly. No evidence for fracture on 12/31/2023 PET/C T. Findings could represent fracture if there is been interval history of trauma since 12/23/2023. Mal ignancy would also remain in the differential but felt to be less likely given no significant FDG act ivity in 12/31/2023 PET/CT.
== END | disposition home or self-care (01) ==
LOC: RADNMMAIN 10:26
PROVIDERS: ATTEND Family Medicine
DX: R93.7 Abnormal findings on diagnostic imaging of other parts of musculoskeletal system (principal); S22.31XA Fracture of one rib, right side, initial encounter for closed fracture; X58.XXXA Exposure to other specified factors, initial encounter
CPT/HCPCS: 78306; A9503

== ENCOUNTER → 2024-07-08 | Outpatient (CLI) | payer MEDICARE, OTHER ==
--- NOTE | 2024-07-08 14:38 | CT ---
EXAMINATION TYPE: CT chest w con CT DLP: 107.9 mGycm, Automated exposure control for dose reduction was used. DATE OF EXAM: 07/08/2024 1:43 PM COMPARISON: PET/CT 12/31/2023, CT low-dose lung 11/26/2023, 11/24/2022, CT chest 01/15/2021, nuclear medi cine bone scan 01/21/2024 CLINICAL INDICATION:Female, 58 years old with history of R91.1 LUNG NODULE; PHH, Lung nodule, hx COPD TECHNIQUE: Multiple axial images were obtained through the chest following the administration of 100 cc of Isovue 300. . Coronal and sagittal reformats reviewed. FINDINGS: LUNGS/ PLEURA: Scattered calcified granulomas. Advanced centrilobular emphysematous changes. Linear scarring within the right apex. Development of right upper lobe 3.3 x 2.5 cm spiculated mass with adj acent pleural thickening. Stable medial left lower lobe 4 mm pulmonary nodule (series 4, image 31). S table posterior left lower lobe 4 mm pulmonary nodule (series 4, image 35). Stable pleural-based righ t middle lobe 6 mm pulmonary nodule (series 4, image 38). Stable right lower lobe base pleural nodule measuring 5 mm (series 4, and 48). AIRWAY: Patent and unremarkable.. HEART: Size within normal limits. No pericardial effusion. MEDIASTINUM: Increased size of precarinal lymph node measuring 8 mm short axis, previously 5 mm (seri es 3, image 22). Enlarged right hilar lymph node measuring 2.1 cm (series 3, image 27). VASCULATURE: No aortic aneurysm. No definitive filling defect within the visualized pulmonary arteri es. MUSCULOSKELETAL: There is new sclerosis involving the anterolateral right third rib corresponding to radiotracer uptake on prior nuclear medicine bone scan (series 4, image 15). No left focal rib lesion s corresponding to radiotracer uptake from prior nuclear medicine bone scan. New healing left anterio r lateral 4-9 rib fractures with callus formation. Remote healed right-sided rib fractures. There are 2 spinal stimulator leads within the thoracic spinal canal terminating at the T7 vertebral body. Lashanda tebral augmentation changes from compression fracture involving the T12 vertebral body with 4 mm retr opulsion. S-shaped scoliotic curvature of the thoracolumbar spine. SOFT TISSUES: Unremarkable. LOWER NECK: No significant findings. UPPER ABDOMEN: Similar stable prominence of the main pancreatic duct measuring up to 5 mm at the body . IMPRESSION: 1. Development of right upper lobe spiculated lung mass most consistent with primary lung cancer with adjacent pleural thickening. Additional stable right-sided pulmonary nodules from prior exams. 2. Development of right hilar and mediastinal enlarged lymph nodes highly suspicious for metastasis. 3. Focal sclerosis of the anterior lateral right third rib adjacent to pleural thickening correspondi ng to nuclear medicine bone scan reaches uptake concerning for osseous metastasis. 4. Healing left-sided anterior lateral fourth through ninth rib fractures with callus formation which is new from prior nuclear medicine bone scan 01/21/2024. 5. Advanced COPD changes. [facility], , 07/08/2024 2:36 PM
== END | disposition home or self-care (01) ==
LOC: RADCTMAIN 13:05
PROVIDERS: ATTEND Internal Medicine Critical Care Medicine
DX: S22.42XD Multiple fractures of ribs, left side, subsequent encounter for fracture with routine healing (principal); J44.9 Chronic obstructive pulmonary disease, unspecified; R91.1 Solitary pulmonary nodule; R59.0 Localized enlarged lymph nodes
CPT/HCPCS: 71260; Q9967

== ENCOUNTER 2024-07-28 11:02 | Day surgery (SDC) | payer MEDICARE, OTHER ==
[2024-07-26 11:04] VITALS: BMI 16.8
[2024-07-28] MEDS: IV FLUID CONTINUATION 1,000 ML IV ONE (11:47)
[2024-07-28] MEDS ORDERED: LACTATED RINGERS 1,000 ML IV SCH (11:52)
[2024-07-28] MEDS ORDERED: LIDOCAINE 1% (10MG/ML) FOR IV START INTRADERMA PRN (11:52)
[2024-07-28] MEDS: ONDANSETRON 4 MG/2 ML VIAL IVP STA (12:09)
[2024-07-28] MEDS: DEXAMETHASONE SOD PHOSPHATE 4 MG/ML 1 ML VIAL IVP STA (12:10)
[2024-07-28] MEDS: LACTATED RINGERS 1,000 ML IV SCH (12:17)
--- NOTE | 2024-07-28 12:40 | CT ---
EXAMINATION TYPE: CT chest wo con DATE OF EXAM: 07/28/2024 COMPARISON: 11/26/2023 HISTORY: pre surgical ion CT DLP: 234 mGycm. Automated Exposure Control for Dose Reduction was Utilized. TECHNIQUE: CT scan of the thorax is performed without IV contrast. FINDINGS: There are marked diffuse emphysematous changes.. There is been marked interval growth in the spiculated subpleural parenchymal right upper lobe mass. It is grown from approximately 9 x 9 mm to 33 x 24 mm. It is highly suspicious for neoplasm. There are scattered calcified lung nodules which are stable. Evaluation for lymphadenopathy is limited due to lack of IV contrast but no definite lymphadenopathy is seen. Limited scanning through the upper abdomen reveals no gross abnormality. There is vertebroplasty of one of the lower thoracic vertebral segments and there is an TENS unit in the mid to lower thoracic spine. No destructive osseous lesions are seen.. IMPRESSION: 1. Markedly enlarging neoplastic spiculated mass in the right upper lobe as described above. 2. Marked emphysematous changes. 3. No pleural effusion or pneumothorax. 4. No acute cardiopulmonary disease. 5. Limited study for lymphadenopathy but no definite lymphadenopathy seen. [facility], , 07/28/2024 12:38 PM
[2024-07-28] MEDS ORDERED: MIDAZOLAM 2 MG/2 ML VIAL ONE (12:41)
[2024-07-28] MEDS ORDERED: fentaNYL (PF) 50 MCG/ML 2 ML AMP ONE (12:41)
[2024-07-28] MEDS ORDERED: SUGAMMADEX SODIUM 200 MG/2 ML SDV IV ONE (12:41)
[2024-07-28] MEDS ORDERED: PHENYLEPHRINE-0.9% NACL SYG 1,000 MCG/10 ML SYRINGE ONE (12:41)
[2024-07-28] MEDS ORDERED: SUCCINYLCHOLINE CHLORIDE 200 MG/10 ML VIAL IV ONE (12:41)
[2024-07-28] MEDS ORDERED: ROCURONIUM 10 MG/ML (5 ML VIAL) IV ONE (12:41)
[2024-07-28] MEDS ORDERED: ePHEDrine 50 MG/ML 1 ML VIAL ONE (12:41)
[2024-07-28] MEDS ORDERED: LIDOCAINE 1% INJ 10MG/ML (20 ML MDV) ONE (12:41)
[2024-07-28] MEDS ORDERED: PROPOFOL 10 MG/ML 20 ML VIAL IV ONE (12:41)
--- NOTE | 2024-07-28 14:06 | P.PCN ---
Date of Procedure: 07/28/24 Operative Findings: Preoperative Diagnosis: Right upper lobe mass Mediastinal lymphadenopathy Postoperative Diagnosis: Right upper lobe mass Mediastinal lymphadenopathy Procedure(s) Performed: Flexible bronchoscopy Robotic-assisted bronchoscopy and radial ultrasound evaluation of the right upper lobe mass Robotic-assisted transbronchial needle aspirate, transbronchial biopsy, transbronchial brushing endobronchial lavage of a right upper lobe mass right upper lobe mass Endobronchial ultrasound transbronchial needle aspirate subcarinal and paratracheal lymph nodes Anesthesia: GAYLEA Surgeon: Alan Chang Estimated Blood Loss (ml): 0 Pathology: other Condition: stable Disposition: same day Operative Findings: A physical exam was performed. Informed consent was obtained from the patient after explaining all the risks (pneumothorax, life threatening bleeding, infection and adverse effects due to medications), benefits and alternatives to the procedure which the patient appeared to understand and so stated. The patient was connected to the monitoring devices. General anesthesia was induced and the patient was intubated by anesthesia. A final timeout was performed and the procedure confirmed by the attending staff bronchoscopist. The bronchoscope was inserted and the airway examined. Airway examination of the airway was essentially within normal limits. There was no significant endobronchial abnormalities noted. The flexible bronchoscope was removed and the robotic bronchoscope was inserted. Registration was completed. I next guided the robotic bronchoscope using the navigation system into the right upper lobe superior segment and later on into the various subsegment based on the guided navigation. Once in proper position, the bronchoscope was frozen. The radial EBUS probe was placed through the bronchoscope and confirmed abnormal u/s images vs normal lung. A needle was placed through the working channel and another fluoroscopic guidance, we sampled the area in the right upper lobe where the opacity was present. We then used a clot biopsy pattern with ultrasound confirmation for 2 additional passes with the needle. Following that, a forceps were next introduced through working channel and extended the appropriate distance and 3 transbronchial biopsies were performed using fluoroscopic guidance. The u/s probe was then reinserted to confirm location. When confirmed this process was repeated for a total of 8-10 transbronchial biopsies. After reassessment with EBUS, a brush was placed through the extendable working channel for 1 pass with fluoroscopic guidance. U/S evaluation was then used to confirm location. Following that, a total of 40 cc of saline was infused into the right upper lobe and approximately 8 to 10 cc of saline was aspirated and the bronchial lavage was sent for cytologic evaluation. Following that, I am bronchoscope was removed. The endobronchial ultrasound was inserted and a full evaluation of the mediastinal lymph nodes was done. Upon careful investigation with endobronchial ultrasound, several 1 to 1.5 cm 1.0 cm anterior tracheal and paratracheal lymph node was identified in addition to a 2 cm (subcarinal station 7) lymph nodes.. Using a 22-gauge position needle, transbronchial needle aspirate of the right paratracheal station lymph node was done and a total of 3 passes was taken without any complications. Also, transbronchial needle aspirate of station 7 lymph nodes was done, a total of 5 passes. Endobronchial ultrasound was removed. The rest of the midsternal stations showed no significant pathologic mediastinal lymphadenopathy. Flex. bronchoscope was inserted and regular suctioning was done. At the completion of the procedure, no residual secretions or bloody material within the airway. The bronchoscope was removed. The patient was extubated. RECOMMENDATIONS: Await pathology and cytology results The referring physician will be alerted to the results when available. The patient was advised to follow up with the referring physician with the biopsy results Patient will be called with results.
[2024-07-28 14:10] VITALS: TEMP 97.4
--- NOTE | 2024-07-28 15:04 | XR ---
EXAMINATION TYPE: XR chest 1V portable DATE OF EXAM: 07/28/2024 Comparison: 09/30/2021 Clinical History: 58-year-old female shortness of breath status post bronchoscopy, PACU ph 1 bay 4 no w Findings: The heart is upper limits of normal in size. Arthritic arch calcifications. Scattered benign calcifie d granulomas are present. Focal abnormal opacity in the periphery of the right upper lobe. Advanced e mphysema. No consolidation or pneumothorax. No pleural effusion. Kyphoplasty change thoracic lumbar j unction. Spinal stimulator array centered at the lower thoracic spinal canal. Slight S-shaped curvatu re of the spine. Impression: 1. COPD with advanced emphysema and masslike opacity periphery of the right upper lobe. 2. No appreciable pneumothorax. [facility], , 07/28/2024 3:02 PM
--- NOTE | 2024-07-28 15:08 | FL ---
EXAMINATION TYPE: FL bronchoscopy DATE OF EXAM: 07/28/2024 FLUOROSCOPY RT sided upper mass bronch with Artinian 35.4 sec fluoro time .[id number] DAP 2 images saved LC [facility], , 07/28/2024 3:05 PM
[2024-07-28 15:39] VITALS: BP 111/66; PULSE 98; RESP 16
== END 2024-07-28 15:43 | disposition home or self-care (01) ==
LOC: ORWHC2ENDO 11:02
PROVIDERS: ATTEND Internal Medicine Critical Care Medicine
DX: R59.0 Localized enlarged lymph nodes (principal); M19.90 Unspecified osteoarthritis, unspecified site; F41.9 Anxiety disorder, unspecified; F17.200 Nicotine dependence, unspecified, uncomplicated
CPT/HCPCS: 88108; 88305; 88342; 88341; 71045; 71250; 31628; 31629; 31623; 31624; 31652; J2250; J0330; J1100; J2405; J2003; J3010; J2704; J2371; S2900